=== PATIENT | female | born 1945 | race African-American/Black ===

== ENCOUNTER 2016-04-18 07:02 | Inpatient (IN) | payer OTHER ==
[2016-04-18] MEDS ORDERED: LORAZEPAM CARPU-JECT 2 MG/ML DISP.SYRIN ONE ×2 (07:26→07:30)
--- NOTE | 2016-04-18 07:40 | PDOC ---
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 The patient denies any LOC, head trauma, or head injury. She states that she has been compliant with all of her medications. She reports that she does not feel right and is twitching. She states that she does not usually lose consciousness while seizing. The patient states that she walks with a cane. The HPI is limited secondary to seizure. Allergies: none reported PCP- Dr. Marlow <Helena Grider - Last Filed: 04/18/16 11:27> - General Chief Complaint: Seizure Stated Complaint: SEIZURES Time Seen by Provider: 04/18/16 07:18 Past History - Past Medical History Anemia: No Asthma: No Cancer: No Cardiac Disorders: Yes (HEART MURMUR, AFIB, AICD) CVA: Yes (TIA 2009) COPD: No CHF: No Dementia: No Diabetes: Yes GI Disorders: (DIVERTICULAR DISEASE) Disorders: No HTN: Yes Hypercholesterolemia: Yes Liver Disease: No Suicide Attempt (Hx): No Seizures: Yes (2009) Thyroid Disease: No - Surgical History Abdominal Surgery: No Appendectomy: No Cardiac Surgery: Yes (cardiac stent) Cholecystectomy: No Lung Surgery: No Neurologic Surgery: No Orthopedic Surgery: Yes (CARPAL TUNNEL RELEASE, RIGHT ARM PINNING W/ RODS) - Immunization History Immunization Up to Date: Yes - Psycho/Social/Smoking Cessation Hx Anxiety: No Suicidal Ideation: No Smoking Status: Yes Smoking History: Former smoker Have you smoked in the past 12 months: No Number of Cigarettes Smoked Daily: 0 If you are a former smoker, when did you quit?: 1981 Information on smoking cessation initiated: No Hx Alcohol Use: No Drug/Substance Use Hx: No Substance Use Type: None Hx Substance Use Treatment: No <Lilliana Odell - Last Filed: 04/18/16 09:50> <Helena Grider - Last Filed: 04/18/16 11:27> - Past Medical History Allergies/Adverse Reactions: Allergies Allergy/AdvReac Type Severity Reaction Status Date / Time No Known Drug Allergies Allergy Verified 04/18/16 07:15 Home Medications: Ambulatory Orders Apixaban [Eliquis] 5 mg PO DAILY 04/18/16 Bupropion HCl [Wellbutrin -] 0 mg PO DAILY 04/18/16 Carvedilol [Coreg] 12.5 mg PO BID 04/18/16 Digoxin [Lanoxin -] 0.125 mg PO DAILY 04/18/16 Glipizide [Glipizide Xl] 5 mg PO BID 04/18/16 Hydralazine HCl 10 mg PO BID 04/18/16 Isosorbide Mononitrate 0 mg PO DAILY 04/18/16 Lamotrigine 100 mg PO BID 04/18/16 Ranitidine [Zantac -] 0 mg PO DAILY 04/18/16 Review of Systems - Review of Systems Able to Perform ROS?: Yes Comments:: 04/18/16 07:54 CONSTITUTIONAL: Absent: fever, no chills, no fatigue EYES: Absent: visual changes ENT: Absent: ear pain, no sore throat CARDIOVASCULAR: Absent: chest pain, no palpitations RESPIRATORY: Absent: cough, no SOB GI: Absent: abdominal pain, no nausea, no vomiting, no constipation, no diarrhea GENITOURINARY: Absent: dysuria, no frequency, no hematuria MUSCULOSKELETAL: Absent: back pain, no arthralgia, no myalgia SKIN: Absent: rash NEUROLOGICAL: Present: seizures, twitching. <Helena Grider - Last Filed: 04/18/16 11:27> *Physical Exam - Vital Signs Last Vital Signs Temp Pulse Resp BP Pulse Ox 97.9 F 108 H 18 158/106 97 04/18/16 07:15 04/18/16 07:15 04/18/16 07:15 04/18/16 07:15 04/18/16 07:15 <Lilliana Odell - Last Filed: 04/18/16 09:50> - Vital Signs Last Vital Signs Temp Pulse Resp BP Pulse Ox 97.9 F 86 18 168/86 100 01/03/17 07:15 04/18/16 07:50 04/18/16 07:50 04/18/16 07:50 04/18/16 07:50 - Physical Exam Comments: 04/18/16 07:54 GENERAL: Well-appearing, well-nourished. No apparent distress. HEENT: Normocephalic, atraumatic. PERRL, EOM intact. CARDIOVASCULAR: Normal S1, S2. Regular rate and rhythm. PULMONARY: Clear to auscultation bilaterally. ABDOMEN: Soft, non-distended, non-tender. EXTREMITIES: Normal ROM in all four extremities. No gross deformities. SKIN: Warm, dry. No rash NEUROLOGICAL: Facial twitching under the left eye to the left cheek, chin, and perioral area. <Helena Grider - Last Filed: 04/18/16 11:27> ED Treatment Course - LABORATORY CBC & Chemistry Diagram: 04/18/16 07:39 04/18/16 08:22 <Lilliana Odell - Last Filed: 04/18/16 09:50> - LABORATORY CBC & Chemistry Diagram: 04/18/16 07:39 04/18/16 08:22 - ADDITIONAL ORDERS Additional order review: Laboratory Results 04/18/16 07:23 POC Glucometer [id number] 04/18/16 07:23 POC Glucometer [id number] - RADIOLOGY Radiograph Interpretation: 04/18/16 08:37 EXAM#: TYPE/EXAM: RESULT: [id number] RAD/CHEST X-RAY PORTABLE* Seizure. Chest. Semierect portable x-ray. Comparison study February 16, 2016. Right pacemaker with single intact lead. Cardiomegaly. Calcified aortic arch. No evidence of widening of the superior mediastinum. Bilateral apical pleural thickening. No evidence of CHF, pleural effusion, pneumothorax. No airspace opacities are seen in the visualized lungs. Chronic fibrosis or atelectasis is seen in the left retrocardiac region. Impression. Cardiomegaly. No evidence of active pneumonitis disease. Reported By: Uzair Springer MD 04/18/16 0825 EXAM#: TYPE/EXAM: RESULT: [id number] CT/HEAD CT WITHOUT CONTRAST Clinical formation. Seizures. CT scan of the brain c-. Comparison study CT brain noncontrast study February 01, 2016 Findings. Serial axial images of the brain were obtained from foramen magnum to the cranial vertex without intravenous contrast. The study was supplemented with computer-generated coronal and sagittal reconstruction images. No evidence of acute subarachnoid hemorrhage, acute intra-axial or extra-axial fluid collection consistent with subdural or epidural hematoma. No mass effect, midline shift, acute territorial ischemic changes, herniation or edema is present. Normal day matter white matter differentiation. Age-related involutional changes are noted. The right temporal horn of lateral ventricle is slightly dilated Examination of the bone windows show no fracture. The visualized paranasal sinuses and mastoid air cells are clear. Symmetrical optic globes. Unremarkable retro-orbital soft tissues. Intracranial vascular calcifications are noted Impression. No evidence of acute intracranial hemorrhage, edema, midline shift, mass effect , or skull fracture. No CT evidence of acute territorial infarction. Reported By: Uzair Springer MD 04/18/16 0845 - Medications Given in the ED: ED Medications Discontinued Medications Generic Name Dose Route Start Last Admin Trade Name Ayazq PRN Reason Stop Dose Admin Lorazepam 2 mg 04/18/16 07:46 04/18/16 07:27 Ativan Injection - IVPUSH 04/18/16 07:47 2 mg ONCE ONE Administration Lorazepam 1 mg 04/18/16 07:47 04/18/16 07:46 Ativan Injection - IVPUSH 04/18/16 07:48 1 mg ONCE ONE Administration <Helena Grider - Last Filed: 04/18/16 11:27> Medical Decision Making - Medical Decision Making 04/18/16 07:38 70-year-old female with history of hypertension, atrial fibrillation, CVA, AICD , CAD, DM, seizure disorder who presents to the emergency Department with complaints of seizure activity presenting with facial twitching 2 hours this morning. Upon my evaluation the patient had continued facial twitching with alert mental status, oriented 3. FSG is 114. Differential diagnosis includes but is not limited to: Partial seizures, status epilepticus (partial), electrolyte abnormality, toxic/metabolic derangement, infection, intracranial process, dehydration. Plan: 1. Benzos 2. CT head 3. EKG 4. Labs 5. Urine 6. Chest x-ray 7. Neurology consult 8. Observe and reevaluate 04/18/16 07:43 Addendum: The patient was given a total of Ativan 3 mg intravenously with cessation of facial twitching. 04/18/16 09:29 Addendum: Labs were remarkable for a troponin of 0.10 and a CK of almost 1200. EKG was obtained and shows what appears to be new ST segment depressions and I, II, aVF as well as V4 to V6. Cardiology as well as neurology have been consulted. Will give gentle IVF hydration for elevated CK. I've discussed the case with Dr. Marlow and the plan is to admit the patient to telemetry. <Lilliana Odell - Last Filed: 04/18/16 09:50> - Medical Decision Making 04/18/16 09:19 Dr. Odell spoke with Dr. Marlow at 9:13am regarding the patient's care. Dr. Casillas was paged via paging service at 9:18am. Awaiting call back. Dr. You called back at 9:45am and spoke with Dr. Odell regarding the patient 's care. Dr. Brower was paged via paging service at 9:28am for a doctor to doctor consult. Awaiting call back called back at 9:37am and spoke to Dr. Odell regarding the patient's care. <Helena Grider - Last Filed: 04/18/16 11:27> *DC/Admit/Observation/Transfer - Discharge Dispostion Admit: Yes - Attestations Physician Attestion: 04/18/16 07:40 I, Dr. Lilliana Odell, attest that the scribes documentation that appears above has been prepared under my direction and personally reviewed by me in its entirety. I confirmed that the note above accurately reflects all work, treatment, procedures, and medical decision-making performed by me. <Lilliana Odell - Last Filed: 04/18/16 09:50> - Attestations Scribe Attestion: 04/18/16 07:54 Documentation prepared by RAMO Cornejo, acting as medical appliance maker for Lilliana Odell MD. <Helena Grider - Last Filed: 04/18/16 11:27> Diagnosis at time of Disposition: Seizure disorder, Partial symptomatic epilepsy with complex partial seizures, not intractable, with status epilepticus, NSTEMI (non-ST elevated myocardial infarction) - Discharge Dispostion Condition at time of disposition: Stable - Referrals
[2016-04-18] MEDS ORDERED: LORAZEPAM CARPU-JECT 2 MG/ML DISP.SYRIN IVPUSH ONE ×2 (07:46→07:47)
[2016-04-18 08:01] LABS: BASOPHIL 1.1 % (0-2.0); EOSINOPHIL 3.4 % (0-4.5); MCH 29.8 pg (25.7-33.7); MCHC 32.6 g/dl (32.0-36.0); MEAN CELL VOLUME 91.5 fl (80-96); MEAN PLT VOLUME 8.9 fl (7.5-11.1); NEUTROPHILS 45.2 % (42.8-82.8); PLATELET COUNT 210 K/MM3 (134-434); RDW 13.7 % (11.6-15.6); WHITE BLOOD COUNT 3.9 K/mm3 (4.0-10.0)
[2016-04-18 08:52] LABS: ALBUMIN 3.8 g/dl (3.4-5.0); BILIRUBIN,TOTAL 1.1 mg/dL (0.2-1.0); CALCIUM 9.2 mg/dL (8.5-10.1); CREATININE 1.4 mg/dL (0.55-1.02); TOT PROT 7.9 g/dl (6.4-8.2)
[2016-04-18 09:04] LABS: DIGOXIN LEVEL 1.6305 ng/ml (0.8-2.0); TROPONIN I 0.1 ng/ml (0.00-0.05)
[2016-04-18] MEDS ORDERED: SODIUM CHLORIDE 1,000 ML IV STA (09:23)
--- NOTE | 2016-04-18 09:58 | EKG ---
Test Reason : Blood Pressure : / mmHG Vent. Rate : 103 BPM Atrial Rate : 103 BPM P-R Int : 174 ms QRS Dur : 086 ms QT Int : 324 ms P-R-T Axes : 078 -03 -96 degrees QTc Int : 424 ms ATRIAL FLUTTER RSR' OR QR PATTERN IN V1 SUGGESTS RIGHT VENTRICULAR CONDUCTION DELAY LEFT VENTRICULAR HYPERTROPHY WITH REPOLARIZATION ABNORMALITY ST ABNORMAL ECG WHEN COMPARED WITH ECG OF 19-FEB-2016 16:27, ST Confirmed by GEOFF KEATING, MINI ([id number]) on 04/18/2016 9:57:36 AM Referred By: Overread By: MINI TELLEZ MD
--- NOTE | 2016-04-18 10:41 | CONSULT ---
Consult Consult Specialty:: cardiology Reason for Consultation:: ?seizures; nausea; chest discomfort; EKG changes and elevated TNI - History of Present Illness Chief Complaint: Pt has a litany of discomforts: headache, nausea, dizziness, abdominal and chest discomfort; generalized weakness. History of Present Illness: The patient is a 70 year old black female, with significant past medical history of systolic CHF-->ICD, CAD-->coronary stents, moderate aortic stenosis, , seizures, AFIB, NIDDM; CVA (2009 with residual left sided weakness), diverticulitis, pancreatitis ,CKD, HTN, HLD, who presents today after seizing at approximately 5am this morning. The patient denies any LOC, head trauma, or head injury. She states that she does not lose consciousness while seizing. She states that she has been compliant with all of her medications. She reports that she does not feel right and is twitching. The patient states that she usually walks with a cane. The HPI is limited secondary to seizure. Allergies: none reported PCP- Dr. 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 due to microlithiasis, subclinical vs. perforated diverticulum. elev amylase lipase) Renal/: Yes: Renal Inusuff Reproductive: Yes: Postmenopausal ...: No Psych: Yes: Anxiety Endocrine: Yes: Diabetes Mellitus - Past Surgical History Past Surgical History: Yes: AICD, Colonoscopy (04/2014 severe diverticulosis and adhesions w/sigmoid inflamm, int hemorr, hyperplastic polyps icv, melanosis coli ), Hysterectomy, Stent - Alcohol/Substance Use Hx Alcohol Use: No - Smoking History Smoking history: Former smoker Have you smoked in the past 12 months: No Aproximately how many cigarettes per day: 0 If you are a former smoker, when did you quit?: 1981 - Social History Usual Living Arrangement: Alone ADL: Independent Occupation: No checmical exposure in workplace. History of Recent Travel: No Home Medications - Allergies Allergies/Adverse Reactions: Allergies Allergy/AdvReac Type Severity Reaction Status Date / Time No Known Drug Allergies Allergy Verified 04/18/16 07:15 - Home Medications Home Medications: Ambulatory Orders Apixaban [Eliquis] 5 mg PO DAILY 04/18/16 Bupropion HCl [Wellbutrin -] 150 mg PO DAILY 04/18/16 Carvedilol [Coreg] 12.5 mg PO BID 04/18/16 Digoxin [Lanoxin -] 0.125 mg PO DAILY 04/18/16 Glipizide [Glipizide Xl] 5 mg PO BID 04/18/16 Hydralazine HCl 10 mg PO BID 04/18/16 Isosorbide Mononitrate 30 mg PO DAILY 04/18/16 Lamotrigine 100 mg PO BID 04/18/16 Ranitidine [Zantac -] 0 mg PO DAILY 04/18/16 Family Disease History - Family Disease History Family Disease History: CA: Sister (Breast), Other: Son (CVA age 40) Review of Systems - Review of Systems Constitutional: reports: Weakness Eyes: reports: No Symptoms HENT: reports: No Symptoms Neck: reports: No Symptoms Cardiovascular: reports: Chest Pain Gastrointestinal: reports: Abdominal Pain, Nausea Musculoskeletal: reports: Muscle Weakness Neurological: reports: Weakness Psychiatric: reports: Anxiety, Depression - Risk Factors Known Risk Factors: Yes: Age, Diabetes Mellitus, Hypercholesterolemia, Hypertension, Physical Inactivity, Prior GA /Emb Stroke, Race, Other (CAD; CHF; s/p ICD) Vital Signs: Vital Signs Temperature 97.9 F 04/18/16 07:15 Pulse Rate 71 04/18/16 09:33 Respiratory Rate 17 04/18/16 09:33 Blood Pressure 162/86 04/18/16 09:33 O2 Sat by Pulse Oximetry (%) 100 04/18/16 09:33 Constitutional: Yes: Anxious Eyes: Yes: WNL HENT: Yes: WNL Respiratory: Yes: Regular Gastrointestinal: Yes: Soft Renal/: No: Anuria Cardiovascular: Yes: Pulse Irregular Carotid Bruit: No PMI: Displaced Heart Sounds: Yes: S1 (varies in intensity), Split S2 Murmur: Yes: Systolic Murmur, Grade 2 Musculoskeletal: Yes: Muscle Weakness Extremities: Yes: Cool Edema: No Peripheral Pulses WNL: No Peripheral Pulses: 1+ Left Doralis Pedis, 1+ Right Dorsalis Pedis Integumentary: Yes: WNL Neurological: Yes: Alert, Oriented Psychiatric: Yes: Alert, Oriented - Other Data Echo: Image Reviewed (02/2016: severely reduced LVEF; normal LV size; moderately reduced RVEF; moderately severe pulmonary HTN; mild aortic stenosis ( moderate aortic stenosis by cardiac cath several months ago).) Prior Cardiac Procedures: Cardiac Catheterization, PTCA with Stent Ejection Fraction %: LVEF < 40 % Imaging - Results Chest X-ray: Image Reviewed (cardiomegaly; no acute pulmonary pathology) EKG: Image Reviewed (Atrial flutter with variable AV block) Problem List - Problems (1) Abdominal pain Code(s): R10.9 - UNSPECIFIED ABDOMINAL PAIN Qualifiers: Abdominal location: generalized Qualified Code(s): R10.84 - Generalized abdominal pain (2) Acute on chronic systolic and diastolic heart failure, NYHA class 4 Code(s): I50.43 - ACUTE ON CHRONIC COMBINED SYSTOLIC AND DIASTOLIC HRT FAIL (3) Atypical chest pain Assessment/Plan: TNI 0.1-->0.1. EKG Code(s): R07.89 - OTHER CHEST PAIN (4) Coronary artery disease Code(s): I25.10 - ATHSCL HEART DISEASE OF [place] CORONARY ARTERY W/O ANG PCTRS Qualifiers: Coronary Disease-Associated Artery/Lesion type: [place] artery [place] vs. transplanted heart: [place] heart Associated angina: without angina Qualified Code(s): I25.10 - Atherosclerotic heart disease of [place] coronary artery without angina pectoris (5) Diabetes mellitus Code(s): E11.9 - TYPE 2 DIABETES MELLITUS WITHOUT COMPLICATIONS Qualifiers: Diabetes mellitus type: type 2 Diabetes mellitus complication status: with other specified complication (6) Seizure disorder Code(s): G40.909 - EPILEPSY, UNSP, NOT INTRACTABLE, WITHOUT STATUS EPILEPTICUS (7) Atrial fibrillation with RVR Code(s): I48.91 - UNSPECIFIED ATRIAL FIBRILLATION (8) ICD (implantable cardioverter-defibrillator) in place Code(s): Z95.810 - PRESENCE OF AUTOMATIC (IMPLANTABLE) CARDIAC DEFIBRILLATOR (9) Mitral regurgitation and aortic stenosis Code(s): I08.0 - RHEUMATIC DISORDERS OF BOTH MITRAL AND AORTIC VALVES (10) Systolic and diastolic CHF w/reduced LV function, NYHA class 4 Code(s): I50.40 - UNSP COMBINED SYSTOLIC AND DIASTOLIC (CONGESTIVE) HRT FAIL (11) Anxiety and depression Code(s): F41.8 - OTHER SPECIFIED ANXIETY DISORDERS (12) History of CVA (cerebrovascular accident) Code(s): Z86.73 - PRSNL HX OF TIA (TIA), AND CEREB INFRC W/O RESID DEFICITS (13) Hypertension Assessment/Plan: On carvedilol, hydralazine, Imdur. Add lisinopril (CAD; HTN; DM); f/u BUN/Cr, electrolytes (hx hyperkalemia, which in the past led to discontinuation of spironolactone). Code(s): I10 - ESSENTIAL (PRIMARY) HYPERTENSION Qualifiers: Hypertension type: essential hypertension Qualified Code(s): I10 - Essential (primary) hypertension (14) Acute coronary syndrome Assessment/Plan: TNI 0.1 x 2; CK 1,189, with relative index > 5. EKG: Atrial flutter; diffuse ST-T depression. Add ASA 325 mg once, then 81 mg daily; consider clopidogrel, though problematic (pt is already on apixaban for AF, and ?hx GI bleed). Continue carvedilol, and increase to 25 mg bid if tolerated. Start atorvastatin, despite "normal" lipid levels 02/2016; pt has known CAD, with acute findings. F/u LFTs (mild increase in AST presently). Code(s): I24.9 - ACUTE ISCHEMIC HEART DISEASE, UNSPECIFIED
[2016-04-18 11:39] LABS: URINE APPEARANCE CLEAR; URINE BILIRUBIN NEGATIVE (NEGATIVE); URINE COLOR LTYELLOW; URINE GLUCOSE (UA) NEGATIVE (NEGATIVE); URINE KETONE NEGATIVE (NEGATIVE); URINE NITRITE NEGATIVE (NEGATIVE); URINE UROBILINOGEN NEGATIVE E.U./dl (0.2-1.0)
[2016-04-18 11:40] LABS: URINE BLOOD 1+ (NEGATIVE); URINE LEUK ESTERASE TRACE (NEGATIVE); URINE PROTEIN 1+ (NEGATIVE)
[2016-04-18 11:46] LABS: URINE MUCUS RARE; URINE RBC <1 /hpf (0-3); URINE WBC 4 /hpf (3-5)
--- NOTE | 2016-04-18 12:39 | CONSULT ---
Consult Consult Specialty:: Neurology Reason for Consultation:: left arm twitch - History of Present Illness History of Present Illness: 70 yo with history of seizure disorder, awakened at 4 am with a intermittent left or right arm involuntary movements. She said she ignored it for a while but when it did not stop she decided to call for help. She had no LOC or altered mentation, her speech was normal and she had no sensory or motor symptoms. She was not post ictal. Diagnosed and treated by her private neurologist she takes Lamictal 200mg daily. - History Source History Provided By: Patient Limitations to Obtaining History: No Limitations - Past Medical History [employer]: Yes: CVA, 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 due to microlithiasis, subclinical vs. perforated diverticulum. elev amylase lipase) Renal/: Yes: Renal Inusuff Psych: Yes: Anxiety Endocrine: Yes: Diabetes Mellitus - Past Surgical History Past Surgical History: Yes: AICD, Colonoscopy (04/2014 severe diverticulosis and adhesions w/sigmoid inflamm, int hemorr, hyperplastic polyps icv, melanosis coli ), Hysterectomy, Stent - Alcohol/Substance Use Hx Alcohol Use: No - Smoking History Smoking history: Former smoker Have you smoked in the past 12 months: No Aproximately how many cigarettes per day: 0 If you are a former smoker, when did you quit?: 1981 - Social History Usual Living Arrangement: Alone ADL: Independent Occupation: No checmical exposure in workplace. History of Recent Travel: No Home Medications - Allergies Allergies/Adverse Reactions: Allergies Allergy/AdvReac Type Severity Reaction Status Date / Time No Known Drug Allergies Allergy Verified 04/18/16 07:15 - Home Medications Home Medications: Ambulatory Orders Apixaban [Eliquis] 5 mg PO DAILY 04/18/16 Bupropion HCl [Wellbutrin -] 0 mg PO DAILY 04/18/16 Carvedilol [Coreg] 12.5 mg PO BID 04/18/16 Digoxin [Lanoxin -] 0.125 mg PO DAILY 04/18/16 Glipizide [Glipizide Xl] 5 mg PO BID 04/18/16 Hydralazine HCl 10 mg PO BID 04/18/16 Isosorbide Mononitrate 0 mg PO DAILY 04/18/16 Lamotrigine 100 mg PO BID 04/18/16 Ranitidine [Zantac -] 0 mg PO DAILY 04/18/16 Family Disease History - Family Disease History Family Disease History: CA: Sister (Breast), Other: Son (CVA age 40) Physical Exam Vital Signs: Vital Signs Temperature 97.9 F 04/18/16 07:15 Pulse Rate 71 04/18/16 09:33 Respiratory Rate 04/18/16 09:33 Blood Pressure 162/86 04/18/16 09:33 O2 Sat by Pulse Oximetry (%) 100 04/18/16 09:33 Constitutional: Yes: Well Nourished, No Distress, Calm Eyes: Yes: WNL, EOM Intact, PERRL. No: Diplopia, Ptosis HENT: Yes: Atraumatic Neck: Yes: Supple Cardiovascular: Yes: Regular Rate and Rhythm Respiratory: Yes: Regular Gastrointestinal: Yes: Soft Musculoskeletal: No: Back Pain, Muscle Weakness Neurological: Yes: WNL, Alert, Oriented, Babinski negative, Cran Nerves II-XII Intact. No: Aphasia, Asterixis, Ataxia, Confusion, Dysarthria, Facial Droop, Lethargy, Loss of Sensation, Paresthesia, Seizure, Weakness Assessment/Plan involunyary UE movements with hx of seizure disorder with no clinical seizures at present P increase Lamictal 200 Bid IM/cardiology to address co-morbid cardiac disease with possible MD EEG to assess for ongoing seizure activity.
[2016-04-18 13:54] LABS: TROPONIN I 0.1 ng/ml (0.00-0.05)
[2016-04-18 17:04] VITALS: BMI 42.1
[2016-04-18] MEDS ORDERED: ACETAMINOPHEN 325 MG TABLET (FP) PO PRN (18:14)
--- NOTE | 2016-04-18 18:21 | HP ---
Admitting History and Physical - Primary Care Physician PCP: Kei Marlow - Admission Chief Complaint: seizure/twitch/chest pain History of Present Illness: 70 y/o female with history of diastolic chf, seizure disorder gerd, htn, depression, here with c/o twitching on her face and chest pain. Cardiac enzymes were positive x 1 set, cardiology and neurology workup started in ED. 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 due to microlithiasis, subclinical vs. perforated diverticulum. elev amylase lipase) Renal/: Yes: Renal Inusuff Psych: Yes: Anxiety Endocrine: Yes: Diabetes Mellitus - Past Surgical History Past Surgical History: Yes: AICD, Colonoscopy (04/2014 severe diverticulosis and adhesions w/sigmoid inflamm, int hemorr, hyperplastic polyps icv, melanosis coli ), Hysterectomy, Stent - Smoking History Smoking history: Former smoker Have you smoked in the past 12 months: No Aproximately how many cigarettes per day: 0 If you are a former smoker, when did you quit?: 1981 - Alcohol/Substance Use Hx Alcohol Use: No - Social History ADL: Independent Occupation: No checmical exposure in workplace. History of Recent Travel: No Home Medications - Allergies Allergies/Adverse Reactions: Allergies Allergy/AdvReac Type Severity Reaction Status Date / Time No Known Drug Allergies Allergy Verified 04/18/16 07:15 - Home Medications Home Medications: Ambulatory Orders Apixaban [Eliquis] 5 mg PO DAILY 04/18/16 Bupropion HCl [Wellbutrin -] 150 mg PO DAILY 04/18/16 Carvedilol [Coreg] 12.5 mg PO BID 04/18/16 Digoxin [Lanoxin -] 0.125 mg PO DAILY 04/18/16 Glipizide [Glipizide Xl] 5 mg PO BID 04/18/16 RX: Hydralazine HCl 10 mg PO BID 04/18/16 RX: Isosorbide Mononitrate 30 mg PO DAILY 04/18/16 RX: Lamotrigine 100 mg PO BID 04/18/16 Ranitidine [Zantac -] 0 mg PO DAILY 04/18/16 Family Disease History - Family Disease History Family Disease History: CA: Sister (Breast), Other: Son (CVA age 40) Review of Systems - Review of Systems Constitutional: reports: Lethargy Eyes: reports: No Symptoms HENT: reports: No Symptoms Neck: reports: No Symptoms Cardiovascular: reports: Chest Pain Respiratory: reports: No Symptoms Gastrointestinal: reports: No Symptoms Genitourinary: reports: No Symptoms Musculoskeletal: reports: Muscle Weakness Integumentary: reports: No Symptoms Neurological: reports: Seizure, Weakness Endocrine: reports: No Symptoms Hematology/Lymphatic: reports: No Symptoms Psychiatric: reports: Depression Physical Examination Vital Signs: Vital Signs Temperature 97.8 F 04/18/16 17:43 Pulse Rate 105 H 04/18/16 17:43 Respiratory Rate 18 04/18/16 17:43 Blood Pressure 156/86 04/18/16 17:43 O2 Sat by Pulse Oximetry (%) 98 04/18/16 17:43 Constitutional: Yes: Moderate Distress Eyes: Yes: WNL HENT: Yes: WNL Neck: Yes: WNL Cardiovascular: Yes: WNL Respiratory: Yes: WNL Gastrointestinal: Yes: WNL Renal/: Yes: WNL Musculoskeletal: Yes: WNL, Muscle Weakness Extremities: Yes: WNL Edema: Yes Edema: LLE: Trace, RLE: Trace Peripheral Pulses WNL: Yes Integumentary: Yes: WNL Wound/Incision: Yes: Clean/Dry Neurological: Yes: Pre-Existing Deficit, Unsteady Gait ...Motor Strength: LLE, RLE Psychiatric: Yes: Other Imaging - Results Chest X-ray: Report Reviewed Cat Scan: Report Reviewed Problem List - Problems (1) Acute on chronic systolic and diastolic heart failure, NYHA class 4 Code(s): I50.43 - ACUTE ON CHRONIC COMBINED SYSTOLIC AND DIASTOLIC HRT FAIL (2) Atypical chest pain Code(s): R07.89 - OTHER CHEST PAIN (3) Coronary artery disease Code(s): I25.10 - ATHSCL HEART DISEASE OF [place] CORONARY ARTERY W/O ANG PCTRS Qualifiers: Coronary Disease-Associated Artery/Lesion type: [place] artery [place] vs. transplanted heart: [place] heart Associated angina: without angina Qualified Code(s): I25.10 - Atherosclerotic heart disease of [place] coronary artery without angina pectoris (4) Partial symptomatic epilepsy with complex partial seizures, not intractable , with status epilepticus Code(s): G40.201 - LOCAL-REL SYMPTC EPI W CMPLX PRT SEIZ, NOT NTRCT, W STAT EPI (5) Shortness of breath Code(s): R06.02 - SHORTNESS OF BREATH (6) Arrhythmia Code(s): I49.9 - CARDIAC ARRHYTHMIA, UNSPECIFIED (7) Cardiomegaly Code(s): I51.7 - CARDIOMEGALY (8) Diabetes mellitus Code(s): E11.9 - TYPE 2 DIABETES MELLITUS WITHOUT COMPLICATIONS Qualifiers: Diabetes mellitus type: type 2 Diabetes mellitus complication status: with other specified complication (9) Seizure disorder Code(s): G40.909 - EPILEPSY, UNSP, NOT INTRACTABLE, WITHOUT STATUS EPILEPTICUS (10) Atrial fibrillation and flutter Code(s): I48.91 - UNSPECIFIED ATRIAL FIBRILLATION I48.92 - UNSPECIFIED ATRIAL FLUTTER Assessment/Plan ADMIT TO TELEMETRY NEURO CHECKS LABS REVIEWED CARDIAC ENZYMES X 1 MORE SET NEUROLOGY WORKUP ELIQUIS CONTINUED NO SUICIDAL OR HOMICIDAL THOUGHTS PSYCH EVAL OOB TO CHAIR WITH FALL PRECAUTIONS
[2016-04-18] MEDS: buPROPion HCL 75 MG TABLET PO SCH (21:02)
[2016-04-18] MEDS: CARVEDILOL 12.5 MG TABLET (FP) PO SCH (21:02)
[2016-04-18] MEDS: RANITIDINE HCL 150 MG TABLET (FP) PO SCH (21:02)
[2016-04-18] MEDS: lamoTRIgine 100 MG TABLET (FP) PO SCH (21:03)
[2016-04-18] MEDS: APIXABAN 2.5 MG TABLET PO SCH (21:03)
[2016-04-18] MEDS: hydrALAZINE HCL 10 MG TABLET PO SCH (21:03)
[2016-04-18 21:25] LABS: TROPONIN I 0.11 ng/ml (0.00-0.05)
[2016-04-18] MEDS ORDERED: lamoTRIgine 100 MG TABLET (FP) PO SCH (22:00)
[2016-04-18] MEDS ORDERED: DIGOXIN 0.125 MG TABLET (FP) PO SCH (23:30)
[2016-04-19] MEDS: glipiZIDE-XL 5 MG TAB.ER.24 PO SCH ×2 (06:11→16:26)
[2016-04-19 07:48] LABS: MCHC 32.5 g/dl (32.0-36.0); MEAN CELL VOLUME 92.3 fl (80-96); PLATELET COUNT 179 K/MM3 (134-434); RDW 13.6 % (11.6-15.6); WHITE BLOOD COUNT 3.9 K/mm3 (4.0-10.0)
[2016-04-19 08:51] LABS: CHOLESTEROL 159 mg/dL (50-200); LDL CHOLESTEROL (ONLY SJRH) 82 mg/dL (5-100)
[2016-04-19 08:56] LABS: ALBUMIN 3.6 g/dl (3.4-5.0); CALCIUM 9.3 mg/dL (8.5-10.1); CREATININE 1.4 mg/dL (0.55-1.02); TOT PROT 7.5 g/dl (6.4-8.2)
[2016-04-19] MEDS ORDERED: PT OWN MED DRAWER 7, Y5N ONE ×2 (09:12→21:51)
[2016-04-19] MEDS: ISOSORBIDE MONONITRATE 30 MG TAB.SR.24H (FP) PO SCH (09:35)
[2016-04-19] MEDS: APIXABAN 2.5 MG TABLET PO SCH ×2 (09:35→21:53)
[2016-04-19] MEDS: lamoTRIgine 100 MG TABLET (FP) PO SCH ×2 (09:35→21:53)
[2016-04-19] MEDS: CARVEDILOL 12.5 MG TABLET (FP) PO SCH ×2 (09:35→21:53)
[2016-04-19] MEDS: hydrALAZINE HCL 10 MG TABLET PO SCH ×2 (09:35→21:53)
[2016-04-19] MEDS: RANITIDINE HCL 150 MG TABLET (FP) PO SCH ×2 (09:35→21:53)
[2016-04-19] MEDS ORDERED: DIGOXIN 0.125 MG TABLET (FP) PO SCH (10:00)
[2016-04-19] MEDS: buPROPion HCL 75 MG TABLET PO SCH ×2 (10:00→21:53)
--- NOTE | 2016-04-19 10:09 | PN ---
Progress Note, Physician Chief Complaint: AWAKE CONFUSED ABLE TO NAME PRESIDENT MARGARITO KNOWS WHERE SHE IS - Current Medication List Current Medications: Active Medications Acetaminophen (Tylenol -) 650 mg PO Q6H PRN PRN Reason: FEVER OR PAIN Apixaban (Eliquis -) 2.5 mg PO BID [facility] Last Admin: 04/19/16 09:35 Dose: 2.5 mg Bupropion HCl (Wellbutrin -) 150 mg PO BID [facility] Last Admin: 04/18/16 21:02 Dose: 150 mg Carvedilol (Coreg -) 12.5 mg PO BID [facility] Last Admin: 04/19/16 09:35 Dose: 12.5 mg Digoxin (Lanoxin -) 0.125 mg PO Q48H [facility] Last Admin: 04/18/16 23:42 Dose: Not Given Furosemide (Lasix Injection -) 40 mg IVPB ONCE ONE Stop: 04/19/16 10:05 [facility]: 04/19/16 06:11 Dose: Not Given Hydralazine HCl (Apresoline -) 10 mg PO BID [facility] Last Admin: 04/19/16 09:35 Dose: 10 mg Isosorbide Mononitrate (Imdur -) 30 mg PO DAILY [facility] Last Admin: 04/19/16 09:35 Dose: 30 mg Lamotrigine (Lamictal -) 200 mg PO BID [facility] Last Admin: 04/19/16 09:35 Dose: 200 mg Ranitidine HCl (Zantac -) 150 mg PO BID [facility] Last Admin: 04/19/16 09:35 Dose: 150 mg - Objective Vital Signs: Vital Signs Temperature 98.1 F 04/19/16 06:00 Pulse Rate 84 04/19/16 06:00 Respiratory Rate 18 04/19/16 06:00 Blood Pressure 145/89 04/19/16 06:00 O2 Sat by Pulse Oximetry (%) 98 04/18/16 22:00 Constitutional: Yes: Mild Distress Eyes: Yes: WNL HENT: Yes: WNL Neck: Yes: WNL Cardiovascular: Yes: Pulse Irregular Respiratory: Yes: WNL Gastrointestinal: Yes: WNL Genitourinary: Yes: WNL Musculoskeletal: Yes: Muscle Weakness Extremities: Yes: WNL Edema: Yes Edema: LLE: Trace, RLE: Trace Peripheral Pulses WNL: Yes Integumentary: Yes: WNL Wound/Incision: Yes: Clean/Dry Neurological: Yes: Confusion, Weakness ...Motor Strength: LLE, RLE Psychiatric: Yes: Other Labs: CBC, BMP 04/19/16 06:00 04/19/16 06:00 Problem List - Problems (1) Acute on chronic systolic and diastolic heart failure, NYHA class 4 Code(s): I50.43 - ACUTE ON CHRONIC COMBINED SYSTOLIC AND DIASTOLIC HRT FAIL (2) Atypical chest pain Code(s): R07.89 - OTHER CHEST PAIN (3) Coronary artery disease Code(s): I25.10 - ATHSCL HEART DISEASE OF [place] CORONARY ARTERY W/O ANG PCTRS Qualifiers: Coronary Disease-Associated Artery/Lesion type: [place] artery [place] vs. transplanted heart: [place] heart Associated angina: without angina Qualified Code(s): I25.10 - Atherosclerotic heart disease of [place] coronary artery without angina pectoris (4) Partial symptomatic epilepsy with complex partial seizures, not intractable , with status epilepticus Code(s): G40.201 - LOCAL-REL SYMPTC EPI W CMPLX PRT SEIZ, NOT NTRCT, W STAT EPI (5) Shortness of breath Code(s): R06.02 - SHORTNESS OF BREATH (6) Arrhythmia Code(s): I49.9 - CARDIAC ARRHYTHMIA, UNSPECIFIED (7) Cardiomegaly Code(s): I51.7 - CARDIOMEGALY (8) Diabetes mellitus Code(s): E11.9 - TYPE 2 DIABETES MELLITUS WITHOUT COMPLICATIONS Qualifiers: Diabetes mellitus type: type 2 Diabetes mellitus complication status: with other specified complication (9) Seizure disorder Code(s): G40.909 - EPILEPSY, UNSP, NOT INTRACTABLE, WITHOUT STATUS EPILEPTICUS (10) Atrial fibrillation and flutter Code(s): I48.91 - UNSPECIFIED ATRIAL FIBRILLATION I48.92 - UNSPECIFIED ATRIAL FLUTTER Assessment/Plan ADMIT TO TELEMETRY NEURO CHECKS LABS REVIEWED CARDIAC ENZYMES X 1 MORE SET STAT LASIX IV 40MG X 1 CARDIAC EVAL NEUROLOGY WORKUP ELIQUIS CONTINUED NO SUICIDAL OR HOMICIDAL THOUGHTS PSYCH EVAL OOB TO CHAIR WITH FALL PRECAUTIONS
[2016-04-19 10:30] LABS: ERYTHROCYTE SEDIMENTATION RATE 31 mm/hr (0-30)
[2016-04-19] MEDS ORDERED: FUROSEMIDE 40 MG/4 ML INJECTABLE VIAL IVPB ONE (10:30)
[2016-04-19 10:53] LABS: TROPONIN I 0.1 ng/ml (0.00-0.05)
--- NOTE | 2016-04-19 11:04 | EKG ---
Test Reason : Blood Pressure : / mmHG Vent. Rate : 083 BPM Atrial Rate : 208 BPM P-R Int : 000 ms QRS Dur : 090 ms QT Int : 350 ms P-R-T Axes : 000 -01 185 degrees QTc Int : 411 ms ATRIAL FLUTTER WITH VARIABLE A-V BLOCK WITH PREMATURE VENTRICULAR OR ABERRANTLY CONDUCTED COMPLEXES RSR' OR QR PATTERN IN V1 SUGGESTS RIGHT VENTRICULAR CONDUCTION DELAY ANTERIOR INFARCT (CITED ON OR BEFORE 18-APR-2016) ABNORMAL ECG WHEN COMPARED WITH ECG OF 18-APR-2016 09:27, SERIAL CHANGES OF ANTERIOR INFARCT PRESENT Confirmed by IGNACIO PEÑA MD ([id number]) on 04/19/2016 11:04:11 AM Referred By: Bonny ALLEN Confirmed By:IGNACIO PEÑA MD
--- NOTE | 2016-04-19 11:08 | PN ---
Progress Note, Physician History of Present Illness: The patient is a 70 year old black female, with significant past medical history of systolic CHF-->ICD, CAD-->coronary stents, moderate aortic stenosis, , seizures, AFIB, NIDDM; CVA (2010 with residual left sided weakness), diverticulitis, pancreatitis ,CKD, HTN, HLD, who presents today after seizing at approximately 5am this morning. The patient denies any LOC, head trauma, or head injury. She states that she does not lose consciousness while seizing. She states that she has been compliant with all of her medications. She reports that she does not feel right and is twitching. The patient states that she usually walks with a cane. The HPI is limited secondary to seizure. Allergies: none reported PCP- Dr. Marlow - Current Medication List Current Medications: Active Medications Acetaminophen (Tylenol -) 650 mg PO Q6H PRN PRN Reason: FEVER OR PAIN Apixaban (Eliquis -) 2.5 mg PO BID [facility] Last Admin: 04/19/16 09:35 Dose: 2.5 mg Bupropion HCl (Wellbutrin -) 150 mg PO BID [facility] Last Admin: 04/19/16 10:00 Dose: Not Given Carvedilol (Coreg -) 12.5 mg PO BID [facility] Last Admin: 04/19/16 09:35 Dose: 12.5 mg Digoxin (Lanoxin -) 0.125 mg PO Q48H [facility] Last Admin: 04/18/16 23:42 Dose: Not Given Glipizide (Glucotrol Xl -) 5 mg PO BIDAC [facility] Last Admin: 04/19/16 06:11 Dose: Not Given Hydralazine HCl (Apresoline -) 10 mg PO BID [facility] Last Admin: 04/19/16 09:35 Dose: 10 mg Isosorbide Mononitrate (Imdur -) 30 mg PO DAILY [facility] Last Admin: 04/19/16 09:35 Dose: 30 mg Lamotrigine (Lamictal -) 200 mg PO BID [facility] Last Admin: 04/19/16 09:35 Dose: 200 mg Ranitidine HCl (Zantac -) 150 mg PO BID [facility] Last Admin: 04/19/16 09:35 Dose: 150 mg - Objective Vital Signs: Vital Signs Temperature 98.1 F 04/19/16 06:00 Pulse Rate 84 04/19/16 06:00 Respiratory Rate 18 04/19/16 06:00 Blood Pressure 145/89 04/19/16 06:00 O2 Sat by Pulse Oximetry (%) 98 04/18/16 22:00 Eyes: Yes: WNL, Conjunctiva Clear, EOM Intact HENT: Yes: WNL, Atraumatic, Normocephalic Neck: Yes: WNL, Supple, Trachea Midline Cardiovascular: Yes: WNL, Regular Rate and Rhythm Respiratory: Yes: WNL, Regular, CTA Bilaterally Gastrointestinal: Yes: WNL, Normal Bowel Sounds Genitourinary: Yes: WNL Musculoskeletal: Yes: WNL Extremities: Yes: WNL Edema: No Integumentary: Yes: WNL Neurological: Yes: WNL, Alert, Oriented ...Motor Strength: WNL Psychiatric: Yes: WNL Labs: CBC, BMP 04/19/16 06:00 04/19/16 06:00 Assessment/Plan - Problems (1) Abdominal pain Code(s): R10.9 - UNSPECIFIED ABDOMINAL PAIN Qualifiers: Abdominal location: generalized Qualified Code(s): R10.84 - Generalized abdominal pain (2) Acute on chronic systolic and diastolic heart failure, NYHA class 4 Code(s): I50.43 - ACUTE ON CHRONIC COMBINED SYSTOLIC AND DIASTOLIC HRT FAIL (3) Atypical chest pain Assessment/Plan: TNI 0.1-->0.1. EKG Code(s): R07.89 - OTHER CHEST PAIN (4) Coronary artery disease Code(s): I25.10 - ATHSCL HEART DISEASE OF [place] CORONARY ARTERY W/O ANG PCTRS Qualifiers: Coronary Disease-Associated Artery/Lesion type: [place] artery [place] vs. transplanted heart: [place] heart Associated angina: without angina Qualified Code(s): I25.10 - Atherosclerotic heart disease of [place] coronary artery without angina pectoris (5) Diabetes mellitus Code(s): E11.9 - TYPE 2 DIABETES MELLITUS WITHOUT COMPLICATIONS Qualifiers: Diabetes mellitus type: type 2 Diabetes mellitus complication status: with other specified complication (6) Seizure disorder Code(s): G40.909 - EPILEPSY, UNSP, NOT INTRACTABLE, WITHOUT STATUS EPILEPTICUS (7) Atrial fibrillation with RVR Code(s): I48.91 - UNSPECIFIED ATRIAL FIBRILLATION (8) ICD (implantable cardioverter-defibrillator) in place Code(s): Z95.810 - PRESENCE OF AUTOMATIC (IMPLANTABLE) CARDIAC DEFIBRILLATOR (9) Mitral regurgitation and aortic stenosis Code(s): I08.0 - RHEUMATIC DISORDERS OF BOTH MITRAL AND AORTIC VALVES (10) Systolic and diastolic CHF w/reduced LV function, NYHA class 4 Code(s): I50.40 - UNSP COMBINED SYSTOLIC AND DIASTOLIC (CONGESTIVE) HRT FAIL (11) Anxiety and depression Code(s): F41.8 - OTHER SPECIFIED ANXIETY DISORDERS (12) History of CVA (cerebrovascular accident) Code(s): Z86.73 - PRSNL HX OF TIA (TIA), AND CEREB INFRC W/O RESID DEFICITS (13) Hypertension Assessment/Plan: On carvedilol, hydralazine, Imdur. Add lisinopril (CAD; HTN; DM); f/u BUN/Cr, electrolytes (hx hyperkalemia, which in the past led to discontinuation of spironolactone). Code(s): I10 - ESSENTIAL (PRIMARY) HYPERTENSION Qualifiers: Hypertension type: essential hypertension Qualified Code(s): I10 - Essential (primary) hypertension (14) Acute coronary syndrome Assessment/Plan: TNI 0.1 x 2; CK 1,189, with relative index > 5. EKG: Atrial flutter; diffuse ST-T depression. Add ASA 325 mg once, then 81 mg daily; consider clopidogrel, though problematic (pt is already on apixaban for AF, and ?hx GI bleed). Continue carvedilol, and increase to 25 mg bid if tolerated. Start atorvastatin, despite "normal" lipid levels 02/2016; pt has known CAD, with acute findings. F/u LFTs (mild increase in AST presently). Code(s): I24.9 - ACUTE ISCHEMIC HEART DISEASE, UNSPECIFIED
--- NOTE | 2016-04-19 13:02 | HP ---
Admitting History and Physical - Admission History of Present Illness: out of the room for testing with no reported seizure activity since admission. 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 due to microlithiasis, subclinical vs. perforated diverticulum. elev amylase lipase) Renal/: Yes: Renal Inusuff ...: No Psych: Yes: Anxiety Endocrine: Yes: Diabetes Mellitus - Past Surgical History Past Surgical History: Yes: AICD, Colonoscopy (04/2014 severe diverticulosis and adhesions w/sigmoid inflamm, int hemorr, hyperplastic polyps icv, melanosis coli ), Hysterectomy, Stent - Smoking History Smoking history: Former smoker Have you smoked in the past 12 months: No Aproximately how many cigarettes per day: 0 If you are a former smoker, when did you quit?: 1981 - Alcohol/Substance Use Hx Alcohol Use: No - Social History ADL: Independent Occupation: No checmical exposure in workplace. History of Recent Travel: No Home Medications - Allergies Allergies/Adverse Reactions: Allergies Allergy/AdvReac Type Severity Reaction Status Date / Time No Known Drug Allergies Allergy Verified 04/18/16 07:15 - Home Medications Home Medications: Ambulatory Orders Apixaban [Eliquis] 5 mg PO DAILY 04/18/16 Bupropion HCl [Wellbutrin -] 150 mg PO DAILY 04/18/16 Carvedilol [Coreg] 12.5 mg PO BID 04/18/16 Digoxin [Lanoxin -] 0.125 mg PO DAILY 04/18/16 Glipizide [Glipizide Xl] 5 mg PO BID 04/18/16 Hydralazine HCl 10 mg PO BID 04/18/16 Isosorbide Mononitrate 30 mg PO DAILY 04/18/16 Lamotrigine 100 mg PO BID 04/18/16 Ranitidine [Zantac -] 0 mg PO DAILY 04/18/16 Family Disease History - Family Disease History Family Disease History: [place]: Sister (Breast), Other: Son (CVA age 40) Physical Examination Vital Signs: Vital Signs Temperature 97.6 F 04/19/16 09:00 Pulse Rate 104 H 04/19/16 09:00 Respiratory Rate 18 04/19/16 09:00 Blood Pressure 149/79 04/19/16 09:00 O2 Sat by Pulse Oximetry (%) 98 04/19/16 09:00 Labs: CBC, BMP 04/19/16 06:00 04/19/16 06:00 Assessment/Plan Imp involuntary limb movements, unlikely seizure activity with EEG pending and negative Brain CT Neurologically stable for discharged when general medical condition allows May follow up with her private neurologist, Dr Matthews however suggest she continue Lamictal 200 mg BID (as discussed with Dr Stringer.
--- NOTE | 2016-04-19 14:00 | EKG ---
Test Reason : Blood Pressure : / mmHG Vent. Rate : 088 BPM Atrial Rate : 214 BPM P-R Int : 000 ms QRS Dur : 090 ms QT Int : 336 ms P-R-T Axes : 000 006 -80 degrees QTc Int : 406 ms ATRIAL FLUTTER WITH VARIABLE A-V BLOCK RSR' OR QR PATTERN IN V1 SUGGESTS RIGHT VENTRICULAR CONDUCTION DELAY SEPTAL INFARCT , AGE UNDETERMINED ABNORMAL ECG WHEN COMPARED WITH ECG OF 18-APR-2016 07:33, ST MORE DEPRESSED LATERAL LEADS T WAVE INVERSION NO LONGER EVIDENT IN ANTERIOR LEADS Confirmed by MARIANA KEATING, IGNACIO ([id number]) on 04/19/2016 1:59:59 PM Referred By: Confirmed By:IGNACIO PEÑA MD
[2016-04-20 06:13] VITALS: TEMP 98.2
[2016-04-20] MEDS ORDERED: PT OWN MED DRAWER 7, Y5N ONE (09:35)
[2016-04-20] MEDS: glipiZIDE-XL 5 MG TAB.ER.24 PO SCH (09:49)
[2016-04-20] MEDS: RANITIDINE HCL 150 MG TABLET (FP) PO SCH (09:50)
[2016-04-20] MEDS: CARVEDILOL 12.5 MG TABLET (FP) PO SCH (09:50)
[2016-04-20] MEDS: ISOSORBIDE MONONITRATE 30 MG TAB.SR.24H (FP) PO SCH (09:50)
[2016-04-20] MEDS: APIXABAN 2.5 MG TABLET PO SCH (09:50)
[2016-04-20] MEDS: hydrALAZINE HCL 10 MG TABLET PO SCH (09:51)
[2016-04-20] MEDS: buPROPion HCL 75 MG TABLET PO SCH (09:52)
[2016-04-20] MEDS: lamoTRIgine 100 MG TABLET (FP) PO SCH (09:53)
--- NOTE | 2016-04-20 11:26 | DS ---
Physical Examination Vital Signs: Vital Signs Temperature 98.2 F 04/20/16 06:00 Pulse Rate 103 H 04/20/16 06:00 Respiratory Rate 20 04/20/16 06:00 Blood Pressure 143/86 04/20/16 06:00 O2 Sat by Pulse Oximetry (%) 99 04/19/16 21:00 Findings/Remarks: feeling better Constitutional: Yes: Well Nourished Eyes: Yes: WNL HENT: Yes: WNL Neck: Yes: WNL Cardiovascular: Yes: Pulse Irregular Respiratory: Yes: WNL Gastrointestinal: Yes: WNL Renal/: Yes: WNL Musculoskeletal: Yes: WNL Extremities: Yes: WNL Edema: No Peripheral Pulses WNL: Yes Integumentary: Yes: WNL Wound/Incision: Yes: Clean/Dry Neurological: Yes: WNL ...Motor Strength: WNL Psychiatric: Yes: WNL Labs: CBC, BMP 04/19/16 06:00 04/19/16 06:00 Discharge Summary Reason For Visit: SEIZURE DISORDER Current Active Problems Abdominal pain (Acute) Acute on chronic systolic and diastolic heart failure, NYHA class 4 (Acute) Atypical chest pain (Acute) Coronary artery disease (Acute) Elevated lactic acid level (Acute) Elevated lipase (Acute) Hyperkalemia (Acute) Shortness of breath (Acute) Tachyarrhythmia (Acute) Arrhythmia (Chronic) Cardiomegaly (Chronic) Diabetes mellitus (Chronic) Procedures: Principal: ct head Other Procedures: labs/cx Hospital Course: admitted for acute seizure elevated troponins, treated and worked up, f/u as outpatient Condition: Stable - Instructions Diet, Activity, Other Instructions: low sodium/ada Referrals: Kei Marlow MD [Primary Care Provider] - - Home Medications Comprehensive Discharge Medication List: Ambulatory Orders Apixaban [Eliquis] 5 mg PO DAILY 04/18/16 Bupropion HCl [Wellbutrin -] 150 mg PO DAILY 04/18/16 Carvedilol [Coreg] 12.5 mg PO BID 04/18/16 Digoxin [Lanoxin -] 0.125 mg PO DAILY 04/18/16 Glipizide [Glipizide Xl] 5 mg PO BID 04/18/16 Hydralazine HCl 10 mg PO BID 04/18/16 Isosorbide Mononitrate 30 mg PO DAILY 04/18/16 Lamotrigine 100 mg PO BID 04/18/16 Ranitidine [Zantac -] 0 mg PO DAILY 04/18/16
[2016-04-20 11:40] VITALS: BP 140/86; PULSE 72
== END 2016-04-20 11:19 | disposition home or self-care (01) | DRG 100 ==
LOC: JER 07:02 → JERBED 09:57 → J4S 17:25
PROVIDERS: ADMIT Family Medicine; ATTEND Family Medicine
DX: G40.909 Epilepsy, unspecified, not intractable, without status epilepticus (principal); I50.43 Acute on chronic combined systolic (congestive) and diastolic (congestive) heart failure; I69.354 Hemiplegia and hemiparesis following cerebral infarction affecting left non-dominant side; R07.89 Other chest pain; I25.10 Atherosclerotic heart disease of native coronary artery without angina pectoris; Z98.61 Coronary angioplasty status; E11.9 Type 2 diabetes mellitus without complications; E78.5 Hyperlipidemia, unspecified; Z87.891 Personal history of nicotine dependence; I12.9 Hypertensive chronic kidney disease with stage 1 through stage 4 chronic kidney disease, or unspecified chronic kidney disease; N18.9 Chronic kidney disease, unspecified; Z95.810 Presence of automatic (implantable) cardiac defibrillator; I34.0 Nonrheumatic mitral (valve) insufficiency; I35.0 Nonrheumatic aortic (valve) stenosis
CPT/HCPCS: 36415; 70450-TC; 71010-TC; 80053; 80061; 80162; 81003; 81015; 82550; 82553; 83036; 83605; 83721; 83880; 84484; 85025; 85027; 85651; 93005; 93010; 95816; 97116-GP; 97163-GP; 99285-25

== ENCOUNTER 2016-07-11 07:23 | Inpatient (IN) | payer OTHER ==
[2016-07-11] MEDS ORDERED: SODIUM CHLORIDE 1,000 ML IV SCH (07:45)
--- NOTE | 2016-07-11 07:45 | PDOC ---
History of Present Illness <Bing Donahue - Last Filed: 07/11/16 10:26> - History of Present Illness Initial Comments: 07/11/16 07:40 Patient seen immediately on arrival, documentation done later 70-year-old female with a past medical history of an old stroke with slurred speech and right-sided weakness, and a residual seizure disorder and 2009 She says that her symptoms did improve, but never resolved completely She also has a history of aortic stenosis, CAD with stents, CHF, hypertension, hyperlipidemia, mitral insufficiency, and diverticulitis She has a pacemaker/ AICD Patient states that 3 PM yesterday she started having worsening of her speech, and some increasing right arm or right leg weakness, and difficulty walking She states that the symptoms were initially off and on, but at 10 PM they became constant, and unchanged through the night, she awakened again with the symptoms this morning She denies any fall or head injury, she denies any seizure, she denies any recent intercurrent illness She takes Eliquis for a blood thinner Remainder of the review of systems preliminary review negative <Coretta Espinoza - Last Filed: 07/11/16 22:20> - General Chief Complaint: CVA/TIA Stated Complaint: POSSIBLE STROKE Time Seen by Provider: 07/11/16 07:30 Past History <Bing Donahue - Last Filed: 07/11/16 10:26> - Past Medical History Anemia: No Asthma: No Cancer: No Cardiac Disorders: Yes (HEART MURMUR, AFIB, AICD) CVA: Yes (TIA 2009) COPD: No CHF: No Dementia: No Diabetes: Yes (NIDDM) GI Disorders: (DIVERTICULAR DISEASE) Disorders: No HTN: Yes Hypercholesterolemia: Yes Liver Disease: No Suicide Attempt (Hx): No Seizures: Yes (2009) Thyroid Disease: No - Surgical History Abdominal Surgery: No Appendectomy: No Cardiac Surgery: Yes (cardiac stent/AICD) Cholecystectomy: No Lung Surgery: No Neurologic Surgery: No Orthopedic Surgery: Yes (CARPAL TUNNEL RELEASE, RIGHT ARM PINNING W/ RODS) - Immunization History Immunization Up to Date: Yes - Psycho/Social/Smoking Cessation Hx Anxiety: No Suicidal Ideation: No Smoking Status: Yes Smoking History: Former smoker Have you smoked in the past 12 months: No Number of Cigarettes Smoked Daily: 0 If you are a former smoker, when did you quit?: 1981 Information on smoking cessation initiated: No Hx Alcohol Use: No Drug/Substance Use Hx: No Substance Use Type: None Hx Substance Use Treatment: No <Coretta Espinoza - Last Filed: 07/11/16 22:20> - Past Medical History Allergies/Adverse Reactions: Allergies Allergy/AdvReac Type Severity Reaction Status Date / Time No Known Drug Allergies Allergy Verified 07/11/16 07:29 Home Medications: Ambulatory Orders Apixaban [Eliquis] 2.5 mg PO BID 04/18/16 Bupropion HCl [Wellbutrin -] 150 mg PO DAILY 04/18/16 Carvedilol [Coreg] 12.5 mg PO BID 04/18/16 Digoxin [Lanoxin -] 0.125 mg PO BID 04/18/16 Glipizide [Glipizide Xl] 5 mg PO BID 04/18/16 Hydralazine HCl 150 mg PO BID 04/18/16 Isosorbide Mononitrate 30 mg PO DAILY 04/18/16 Lamotrigine 100 mg PO BID 04/18/16 Ranitidine [Zantac -] 150 mg PO DAILY 04/18/16 Lipase/Protease/Amylase [Creon Dr 36,000 Units Capsule] 1 each PO DAILY Rifaximin [Xifaxan] 550 mg PO DAILY 07/11/16 Neuro Specific PMHX - Complaint Specific PMHX Migraine: Yes <Coretta Espinoza - Last Filed: 07/11/16 22:20> Review of Systems - Review of Systems Able to Perform ROS?: No <Coretta Espinoza - Last Filed: 07/11/16 22:20> *Physical Exam - Vital Signs Last Vital Signs Temp Pulse Resp BP Pulse Ox 110 H 18 164/104 100 07/11/16 07:30 07/11/16 07:30 07/11/16 07:30 07/11/16 07:30 <Bing Donahue - Last Filed: 07/11/16 10:26> - Vital Signs Last Vital Signs Temp Pulse Resp BP Pulse Ox 110 H 18 164/104 100 07/11/16 07:30 07/11/16 07:30 07/11/16 07:30 07/11/16 07:30 - Physical Exam Comments: 07/11/16 07:43 Physical exam Last Vital Signs Temp Pulse Resp BP Pulse Ox 110 H 18 164/104 100 07/11/16 07:30 07/11/16 07:30 07/11/16 07:30 07/11/16 07:30 Patient seen immediately on arrival by me GENERAL: The patient is awake, alert, and fully oriented, and in no apparent distress. HEAD: Normal with no signs of trauma. EYES: Pupils equal, sclera anicteric, conjunctiva are normal. ENT: Moist mucous membranes. NECK: Normal range of motion, supple LUNGS: clear bilat HEART: Regular rate and rhythm, normal S1 and S2 without murmur, rub or gallop. ABDOMEN: Soft, nontender, normoactive bowel sounds. No guarding, no rebound. No masses appreciated. EXTREMITIES: Normal range of motion, no edema. No clubbing or cyanosis. No cords, erythema, or tenderness. NEURO: Mental status: The patient is oriented x3. Cranial nerves: Subtle right facial droop Motor: There is right arm and right leg weakness Sensation: There is diminished sensation in the right face, right arm, right leg Cerebellar: There is some speech dysarthria, and there is slurred speech PSYCH: Normal mood, normal affect. SKIN: Warm, Dry, normal turgor, no rashes or lesions noted. NIH stroke scale 9 <Coretta Espinoza - Last Filed: 07/11/16 22:20> NIH Stroke Scale - Last Known Well Date/Time & Onset Date Last Known Well: 07/10/16 Time Last Known Well: 15:00 - Initial Evaluation Level of consciousness: Alert Ask patient the month and their age: Answers both correctly Ask patient to open & close eyes; make fist and let go: Obeys both correctly Best gaze (horizontal eye movement): Normal Visual field testing: No visual field loss Facial paresis (Show teeth/raise eyebrows/close eyes tight): Minor paralysis ( flattened nasolabial fold, asymmetry on smiling) Motor Function: Left Arm: Normal Motor Function: Right Arm: Some effort against gravity Motor Function: Left Leg: Normal (extends leg 30 degrees for 5 seconds without drift) Motor Function: Right Leg: Some effort against gravity Limb Ataxia: Present in one limb Sensory(Use pinprick test arms,legs,trunk,face/side to side): Mild to moderate decrease in sensation Best language (Describe picture, name items, read sentences): Mild to moderate aphasia Dysarthria (read several words): Mild to moderate slurring of words Extinction and Inattention: No abnormality - Total Score NIH Stroke Scale Score: 9 <Coretta Espinoza - Last Filed: 07/11/16 22:20> Critical Care Time/MDM Note - Medical Decision Making Note: CT/HEAD CT (STROKE) Clinical formation. Rule out CVA, TIA. CT brain C-. Comparison study: CT brain April 18, [address] scan of the brain c-. Comparison study CT brain noncontrast study February 01, 2016 Findings. Serial axial images of the brain were obtained from foramen magnum to the cranial vertex without intravenous contrast. The study was supplemented with computer-generated coronal and sagittal reconstruction images. No evidence of acute subarachnoid hemorrhage, acute intra-axial or extra-axial fluid collection consistent with subdural or epidural hematoma. No mass effect, midline shift, acute territorial ischemic changes, herniation or edema is present. Normal day matter white matter differentiation. Age-related involutional changes are noted. The right temporal horn of lateral ventricle is slightly dilated Examination of the bone windows show no fracture. The visualized paranasal sinuses and mastoid air cells are clear. Symmetrical optic globes. Unremarkable retro-orbital soft tissues. Intracranial vascular calcifications are noted Impression. No evidence of acute intracranial hemorrhage, edema, midline shift, mass effect , or skull fracture. No CT evidence of acute territorial infarction. Findings. Serial axial images of the brain were obtained from foramen magnum to the cranial vertex without intravenous contrast. The study was supplemented with computer-generated coronal and sagittal reconstruction images. [employer] image was reviewed. No evidence of acute subarachnoid hemorrhage, acute intra-axial or extra-axial fluid collection consistent with subdural or epidural hematoma. No mass effect, midline shift, acute territorial ischemic changes, herniation or edema is present. Normal day matter white matter differentiation. Auricle sulci, sylvian fissures, perimesencephalic cisterns are not effaced. The CSF spaces unchanged from prior study. No evidence of hydrocephalus. Age- related involutional changes are noted. Intracranial vascular calcifications are noted. Examination of the bone windows show no fracture. The visualized paranasal sinuses and mastoid air cells are clear. Impression. No evidence of acute intracranial hemorrhage, edema, midline shift, mass effect , or skull fracture. No CT evidence of acute territorial infarction. Reported By: Uzair Springer MD 07/11/16 0755 RAD/CHEST X-RAY PORTABLE* CVA. Single portable chest x-ray. Comparison study April 28, 2016. Right pacemaker with a single intact lead. Cardiomegaly. Uncoiled thoracic aorta. No evidence of CHF, pulmonary infiltrates , atelectasis, pleural effusion or pneumothorax. The right diaphragm is slightly elevated. Intact visualized osseous structures. No evidence of widening of the superior mediastinum. Impression. Cardiomegaly. No evidence of CHF, pulmonary infiltrates, atelectasis, pleural effusion, or pneumothorax. Reported By: Uzair Springer MD 07/11/16 0940 07/11/16 07:[address] Jones who called back immediately at 0733, the patient's case was discussed. 07/11/16 08:[address] Jones at 0807, awaiting call back. 07/11/16 08:[address] Jones for a second time at 0812, awaiting call back. 07/11/16 08:18 Dr. Jones called back at 0818. Discussed CT scan report with Dr. Jones who recommends the patient continue taking her eliquis. The patient is not a good candidate for TPA. 07/11/16 09:[address] Gerardo at 0950, awaiting call back. Dr. Brower called back at 10:01, patient's case was discussed. 07/11/16 10:[address] Marlow at 10:10, patient's case was discussed. <Bing Donahue - Last Filed: 07/11/16 10:26> - Medical Decision Making Note: 07/11/16 07:47 70-year-old female with a prior stroke, with some residual a, who is on Eliquis at this time, presents with onset of symptoms, initially stuttering sx, at 3 PM yesterday, and then constant at 10 PM yesterday, with speech dysarthria, facial droop, slurred speech, right arm and right leg weakness, which is in the same distribution as her prior stroke, but worse than her prior symptoms Case discussed with neurology- Dr Jones -at 7:30 AM - patient and CAT scan at this time Patient is not a candidate for TPA Stat CT scan of the head-code stroke protocol No evidence of acute intracranial hemorrhage, edema, midline shift, mass effect , or skull fracture No CT evidence of acute territorial infarction Case discussed with neurology-Dr. Jones - patient is not a candidate for TPA due to time of onset of symptoms 07/11/16 08:34 EKG Sinus tachycardia 108, normal axis Borderline first degree AV block Normal QRS duration Normal QTC There is poor R wave across the anterior precordium, and there is lateral ST segment depression When compared to the EKG of 04/19/16 Today's EKG is unchanged from the old EKG, and the lateral ST depression was present on the prior EKG 07/11/16 09:24 Laboratory Results - last 24 hr 07/11/16 07/11/16 07/11/16 07:40 07:40 07:40 WBC 4.2 RBC 4.60 Hgb 13.4 Hct 41.2 MCV 89.6 MCHC 32.5 RDW 14.9 Plt Count 231 D MPV 7.8 Neutrophils % 53.4 Lymphocytes % 28.0 Monocytes % 14.4 H Eosinophils % 3.8 Basophils % 0.4 INR 1.29 H Sodium 139 Potassium 4.9 Chloride 102 Carbon Dioxide 26 Anion Gap 11 BUN 20 H D Creatinine 1.3 H Creat Clearance w eGFR 40.49 Random Glucose 118 H D Calcium 9.5 Total Bilirubin 0.7 D AST 45 H ALT 34 Alkaline Phosphatase 168 H D Creatine Kinase 1000 H Troponin I 0.10 H Total Protein 8.5 H Albumin 3.7 Triglycerides 80 Cholesterol 224 H D Total LDL Cholesterol 135 H HDL Cholesterol 84 H D Blood Type Antibody Screen 07/11/16 07:40 WBC RBC Hgb Hct MCV MCHC RDW Plt Count MPV Neutrophils % Lymphocytes % Monocytes % Eosinophils % Basophils % INR Sodium Potassium Chloride Carbon Dioxide Anion Gap BUN Creatinine Creat Clearance w eGFR Random Glucose Calcium Total Bilirubin AST ALT Alkaline Phosphatase Creatine Kinase Troponin I Total Protein Albumin Triglycerides Cholesterol Total LDL Cholesterol HDL Cholesterol Blood Type B POSITIVE Antibody Screen Negative Elevated CK and troponin No chest pain at this time Patient was able to swallow water, will order her morning Eliquis Case discussed with Dr Marlow- admit 07/11/16 10:[address] Brower-will see patient in consult On further history from Dr. Marlow, patient has been having some unstable angina symptoms in the past few weeks, having chest pain with exertion, and the chest pain goes away with rest She is pain-free at this time <Coretta Espinoza - Last Filed: 07/11/16 22:20> Discharge Disposition <Bing Donahue - Last Filed: 07/11/16 10:26> - Discharge Dispostion Last Admission D/C Date: 04/20/16 Admit: Yes <Coretta Espinoza - Last Filed: 07/11/16 22:20> - Diagnosis Acute CVA (cerebrovascular accident), Elevated troponin, Abnormal EKG - Referrals
[2016-07-11 07:57] LABS: BASOPHIL 0.4 % (0-2.0); EOSINOPHIL 3.8 % (0-4.5); MCH 29.1 pg (25.7-33.7); MCHC 32.5 g/dl (32.0-36.0); MEAN CELL VOLUME 89.6 fl (80-96); MEAN PLT VOLUME 7.8 fl (7.5-11.1); NEUTROPHILS 53.4 % (42.8-82.8); PLATELET COUNT 231 K/MM3 (134-434); RDW 14.9 % (11.6-15.6); WHITE BLOOD COUNT 4.2 K/mm3 (4.0-10.0)
[2016-07-11 08:24] LABS: INR 1.29 (0.82-1.09); PROTHROMBIN TIME (PATIENT) 14.3 SEC (9.98-11.88)
[2016-07-11 08:36] LABS: ALBUMIN 3.7 g/dl (3.4-5.0); BILIRUBIN,TOTAL 0.7 mg/dL (0.2-1.0); CALCIUM 9.5 mg/dL (8.5-10.1); CREATININE 1.3 mg/dL (0.55-1.02); TOT PROT 8.5 g/dl (6.4-8.2)
[2016-07-11 08:48] LABS: TROPONIN I 0.1 ng/ml (0.00-0.05)
[2016-07-11] MEDS ORDERED: APIXABAN 2.5 MG TABLET PO ONE (09:38)
--- NOTE | 2016-07-11 10:10 | CON.CARD ---
Consult Consult Specialty:: cardiology Reason for Consultation:: CVA; hx severe systolic LV dysfunction -->ICD - History of Present Illness Chief Complaint: Pt alert; cannot move right side (started 2 days ago). History of Present Illness: 70-year-old black female with a past medical history of an "old stroke" with slurred speech and right-sided weakness, with ?resolution except for residual seizure disorder in 2009; severe LV dysfunction-->ICD; CAD-->PCI; HTN; hyperlipidemia; moderate aortic stenosis; diverticulitis. She says that her symptoms did in oral, but never resolved completely Patient states that 3 PM yesterday she started having worsening of her speech, and some increasing right arm or right leg weakness, and difficulty walking She states that the symptoms were initially off and on, but at 10 PM they became constant, and unchanged through the night, she awakened again with the symptoms this morning She denies any fall or head injury, she denies any seizure, she denies any recent intercurrent illness She takes Eliquis for a blood thinner, and says she has been compliant to all medications. Remainder of the review of systems preliminary review negative - History Source History Provided By: Patient, Medical Record Limitations to Obtaining History: No Limitations - Past Medical History [employer]: Yes: CVA, 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 due to microlithiasis, subclinical vs. perforated diverticulum. elev amylase lipase) Renal/: Yes: Renal Inusuff Reproductive: Yes: Postmenopausal ...: No Psych: Yes: Anxiety Endocrine: Yes: Diabetes Mellitus - Past Surgical History Past Surgical History: Yes: AICD, Colonoscopy (04/2014 severe diverticulosis and adhesions w/sigmoid inflamm, int hemorr, hyperplastic polyps icv, melanosis coli ), Hysterectomy, Stent - Alcohol/Substance Use Hx Alcohol Use: No - Smoking History Smoking history: Former smoker Have you smoked in the past 12 months: No Aproximately how many cigarettes per day: 0 If you are a former smoker, when did you quit?: 1981 - Social History Usual Living Arrangement: Alone ADL: Independent Occupation: No checmical exposure in workplace. History of Recent Travel: No Home Medications - Allergies Allergies/Adverse Reactions: Allergies Allergy/AdvReac Type Severity Reaction Status Date / Time No Known Drug Allergies Allergy Verified 07/11/16 07:29 - Home Medications Home Medications: Ambulatory Orders Apixaban [Eliquis] 2.5 mg PO BID 04/18/16 Bupropion HCl [Wellbutrin -] 150 mg PO DAILY 04/18/16 Carvedilol [Coreg] 12.5 mg PO BID 04/18/16 Digoxin [Lanoxin -] 0.125 mg PO BID 04/18/16 Glipizide [Glipizide Xl] 5 mg PO BID 04/18/16 Hydralazine HCl 150 mg PO BID 04/18/16 Isosorbide Mononitrate 30 mg PO DAILY 04/18/16 Lamotrigine 100 mg PO BID 04/18/16 Ranitidine [Zantac -] 150 mg PO DAILY 04/18/16 Lipase/Protease/Amylase [Creon Dr 36,000 Units Capsule] 1 each PO DAILY Rifaximin [Xifaxan] 550 mg PO DAILY 07/11/16 Family Disease History - Family Disease History Family Disease History: [place]: Sister (Breast), Other: Son (CVA age 40) Review of Systems - Review of Systems Constitutional: reports: Weakness Eyes: reports: No Symptoms HENT: reports: No Symptoms Neck: reports: No Symptoms Cardiovascular: reports: No Symptoms Respiratory: reports: No Symptoms Gastrointestinal: reports: No Symptoms Genitourinary: reports: No Symptoms Musculoskeletal: reports: Muscle Weakness Neurological: reports: Weakness Psychiatric: reports: Anxiety, Depression - Risk Factors Known Risk Factors: Yes: Age, Diabetes Mellitus, Hypercholesterolemia, Hypertension, Physical Inactivity, Prior UT /Emb Stroke, Race, Other (systolic CHF; CAD-->PCI) Vital Signs: Vital Signs Temperature Pulse Rate 107 H 07/11/16 09:07 Respiratory Rate 18 07/11/16 09:07 Blood Pressure 147/98 07/11/16 09:07 O2 Sat by Pulse Oximetry (%) 98 07/11/16 09:07 Constitutional: Yes: Anxious Eyes: Yes: WNL HENT: Yes: WNL Neck: Yes: WNL Respiratory: Yes: Regular Gastrointestinal: Yes: Soft Renal/: No: Anuria Cardiovascular: Yes: Pulse Irregular JVD: No Carotid Bruit: No PMI: Displaced Heart Sounds: Yes: S1 (varies in intensity), Split S2 Murmur: Yes: Systolic Murmur, Grade 2 Musculoskeletal: Yes: Muscle Weakness Extremities: Yes: Cool Edema: No Peripheral Pulses WNL: No Peripheral Pulses: 1+ Left Doralis Pedis, 1+ Right Dorsalis Pedis Neurological: Yes: Weakness Psychiatric: Yes: Alert, Oriented - Other Data Labs, Other Data: INR, PTT INR 1.29 (0.82-1.09) H 07/11/16 07:40 Abnormal Lab Results 07/11/16 07/11/16 07/11/16 07:40 07:40 07:40 Monocytes % 14.4 H INR 1.29 H BUN 20 H D Creatinine 1.3 H Random Glucose 118 H D AST 45 H Alkaline Phosphatase 168 H D Creatine Kinase 1000 H CK-MB (CK-2) 55.195 H Troponin I 0.10 H Total Protein 8.5 H Cholesterol 224 H D Total LDL Cholesterol 135 H HDL Cholesterol 84 H D Urine Protein Ur Leukocyte Esterase 07/11/16 10:10 Monocytes % INR BUN Creatinine Random Glucose AST Alkaline Phosphatase Creatine Kinase CK-MB (CK-2) Troponin I Total Protein Cholesterol Total LDL Cholesterol HDL Cholesterol Urine Protein 1+ H Ur Leukocyte Esterase 3+ H D Prior Cardiac Procedures: PTCA with Stent Ejection Fraction %: LVEF < 40 % Imaging - Results Chest X-ray: Image Reviewed (no acute pathology) Cat Scan: Image Reviewed (head: no evidence of acute pathology) EKG: Image Reviewed (AT vs Atrial flutter) Problem List - Problems (1) Acute CVA (cerebrovascular accident) Assessment/Plan: weakness on right side; no acute pathology on head CT. F/u with neurologist. Code(s): I63.9 - CEREBRAL INFARCTION, UNSPECIFIED (2) Acute on chronic systolic and diastolic heart failure, NYHA class 4 Assessment/Plan: digoxin level in am; keep 0.5-1.0. Start hydrlazine; continue Imdur. In the past, pt has had episodes of hyperkalemia. Continue Entresto (which has valsartan, an ARB); follow BUN/Cr and K+ closely. She has not been able to be on spironolactone due to hyperkalemia. Daily weights; Is and Os. Code(s): I50.43 - ACUTE ON CHRONIC COMBINED SYSTOLIC AND DIASTOLIC HRT FAIL (3) Coronary artery disease Code(s): I25.10 - ATHSCL HEART DISEASE OF [place] CORONARY ARTERY W/O ANG PCTRS Qualifiers: Coronary Disease-Associated Artery/Lesion type: [place] artery [place] vs. transplanted heart: [place] heart Associated angina: without angina Qualified Code(s): I25.10 - Atherosclerotic heart disease of [place] coronary artery without angina pectoris (4) Elevated troponin Assessment/Plan: 1st level 0.10, with CK/MB relative index >5 (the latter may occur with UT, but also with CVA). F/u TNI, EKGs, telemetry. Code(s): R74.8 - ABNORMAL LEVELS OF OTHER SERUM ENZYMES (5) Diabetes mellitus Code(s): E11.9 - TYPE 2 DIABETES MELLITUS WITHOUT COMPLICATIONS Qualifiers: Diabetes mellitus type: type 2 Diabetes mellitus complication status: with other specified complication (6) Atrial fibrillation and flutter Assessment/Plan: On carvedilol, digoxin. On apixaban. Code(s): I48.91 - UNSPECIFIED ATRIAL FIBRILLATION I48.92 - UNSPECIFIED ATRIAL FLUTTER (7) Anxiety and depression Code(s): F41.8 - OTHER SPECIFIED ANXIETY DISORDERS (8) Hypertension Assessment/Plan: f/u BP serially; started on hydralazine (for HTN and systolic CHF); on Entreto ( which has valsartan), Imdur, carvedilol. Code(s): I10 - ESSENTIAL (PRIMARY) HYPERTENSION Qualifiers: Hypertension type: essential hypertension Qualified Code(s): I10 - Essential (primary) hypertension (9) Seizure disorder Code(s): G40.909 - EPILEPSY, UNSP, NOT INTRACTABLE, WITHOUT STATUS EPILEPTICUS (10) Hyperlipidemia Assessment/Plan: increase atorvastatin; keep LDL < 70 mg/dL. Code(s): E78.5 - HYPERLIPIDEMIA, UNSPECIFIED (11) Elevated CA-125 Assessment/Plan: elevated 04/2015; usually associated with ovarian CA. F/u PMHx; f/u with oncologist. Code(s): R97.1 - ELEVATED CANCER ANTIGEN 125 [CA 125]
[2016-07-11 10:37] LABS: URINE APPEARANCE CLEAR; URINE BILIRUBIN NEGATIVE (NEGATIVE); URINE BLOOD NEGATIVE (NEGATIVE); URINE COLOR LTYELLOW; URINE GLUCOSE (UA) NEGATIVE (NEGATIVE); URINE KETONE NEGATIVE (NEGATIVE); URINE NITRITE NEGATIVE (NEGATIVE); URINE UROBILINOGEN NEGATIVE E.U./dl (0.2-1.0)
[2016-07-11 11:14] LABS: URINE LEUK ESTERASE 3+ (NEGATIVE); URINE PROTEIN 1+ (NEGATIVE)
[2016-07-11 11:17] LABS: URINE RBC 7 /hpf (0-3); URINE WBC 21 /hpf (3-5)
--- NOTE | 2016-07-11 13:27 | EKG ---
Test Reason : Blood Pressure : / mmHG Vent. Rate : 108 BPM Atrial Rate : 108 BPM P-R Int : 208 ms QRS Dur : 094 ms QT Int : 320 ms P-R-T Axes : 109 009 111 degrees QTc Int : 428 ms QUESTIONABLE ATRIAL TACHYCARDIA VS. ATRIAL FLUTTER RSR' OR QR PATTERN IN V1 SUGGESTS RIGHT VENTRICULAR CONDUCTION DELAY ANTERIOR INFARCT (CITED ON OR BEFORE 18-APR-2016) ABNORMAL ECG WHEN COMPARED WITH ECG OF 19-APR-2016 10:43, VENT. RATE HAS INCREASED Confirmed by MINI TELLEZ MD ([id number]) on 07/11/2016 1:26:25 PM Referred By: Confirmed By:MINI TELLEZ MD
[2016-07-11] MEDS ORDERED: ACETAMINOPHEN 325 MG TABLET (FP) PO PRN (14:46)
[2016-07-11 14:55] VITALS: BMI 23.6
[2016-07-11] MEDS ORDERED: DEXTROSE 5%-0.45% SALINE 1,000 ML IV SCH (15:00)
--- NOTE | 2016-07-11 15:23 | CONSULT ---
Consult Consult Specialty:: Neurology Reason for Consultation:: worsening right sided weakness, changes in speech - History of Present Illness History of Present Illness: 70 year old woman, history of previous stroke with residual dysarthria and right hemiparesis, epilepsy?, multiple cardiac issues status post pacer, currently on eliquis, presents with worsening right hemiparesis and speech difficulties. The patient denies head injury, recent seizure, or other neurological complaints. CT head shows no acute findings On exam, mild right hemiparesis noted. Patient is stuttering and states she has noted stuttering on and off, no dysarthria noted on exam. She is unable to provide further history on her history of epilepsy in the past but denies any recent events. 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 due to microlithiasis, subclinical vs. perforated diverticulum. elev amylase lipase) Renal/: Yes: Renal Inusuff Psych: Yes: Anxiety Endocrine: Yes: Diabetes Mellitus - Past Surgical History Past Surgical History: Yes: AICD, Colonoscopy (04/2014 severe diverticulosis and adhesions w/sigmoid inflamm, int hemorr, hyperplastic polyps icv, melanosis coli ), Hysterectomy, Stent - Alcohol/Substance Use Hx Alcohol Use: No - Smoking History Smoking history: Former smoker Have you smoked in the past 12 months: No Aproximately how many cigarettes per day: 0 If you are a former smoker, when did you quit?: 1981 - Social History Usual Living Arrangement: Alone ADL: Independent Occupation: No checmical exposure in workplace. History of Recent Travel: No Home Medications - Allergies Allergies/Adverse Reactions: Allergies Allergy/AdvReac Type Severity Reaction Status Date / Time No Known Drug Allergies Allergy Verified 07/11/16 07:29 - Home Medications Home Medications: Ambulatory Orders Apixaban [Eliquis] 2.5 mg PO BID 04/18/16 Bupropion HCl [Wellbutrin -] 150 mg PO DAILY 04/18/16 Carvedilol [Coreg] 12.5 mg PO BID 04/18/16 Digoxin [Lanoxin -] 0.125 mg PO BID 04/18/16 Glipizide [Glipizide Xl] 5 mg PO BID 04/18/16 Hydralazine HCl 150 mg PO BID 04/18/16 Isosorbide Mononitrate 30 mg PO DAILY 04/18/16 Lamotrigine 100 mg PO BID 04/18/16 Ranitidine [Zantac -] 150 mg PO DAILY 04/18/16 Lipase/Protease/Amylase [Creon Dr 36,000 Units Capsule] 1 each PO DAILY Rifaximin [Xifaxan] 550 mg PO DAILY 07/11/16 Family Disease History - Family Disease History Family Disease History: CA: Sister (Breast), Other: Son (CVA age 40) Review of Systems - Review of Systems Constitutional: reports: No Symptoms Eyes: reports: No Symptoms HENT: reports: No Symptoms Neck: reports: No Symptoms Cardiovascular: reports: No Symptoms Respiratory: reports: No Symptoms Gastrointestinal: reports: No Symptoms Neurological: reports: Change in Speech Physical Exam Vital Signs: Vital Signs Temperature Pulse Rate 19 L 07/11/16 12:05 Respiratory Rate 17 07/11/16 12:05 Blood Pressure 134/87 07/11/16 12:05 O2 Sat by Pulse Oximetry (%) 99 07/11/16 12:05 Constitutional: Yes: No Distress Eyes: Yes: Conjunctiva Clear, EOM Intact HENT: Yes: Atraumatic, Normocephalic Cardiovascular: Yes: S1, S2 Respiratory: Yes: Regular Neurological: Yes: Alert, Oriented, Cran Nerves II-XII Intact ...Motor Strength: RUE, RLE (mild right hemiparesis) Assessment/Plan 70 year old woman, history of previous stroke with residual dysarthria and right hemiparesis, epilepsy?, multiple cardiac issues status post pacer, currently on eliquis, presents with worsening right hemiparesis and speech difficulties. The patient denies head injury, recent seizure, or other neurological complaints. CT head shows no acute findings On exam, mild right hemiparesis noted. Patient is stuttering and states she has noted stuttering on and off, no dysarthria noted on exam. She is unable to provide further history on her history of epilepsy in the past but denies any recent events. Worsening right hemiparesis TIA versus stroke, stuttering unlikely neurologic CT head shows no acute findings Recommend MRI- however patient has a pacemaker Carotid doppler Echocardiogram LDL, hgalc Continue eliquis PT/OT Infectious workup Will follow
[2016-07-11] MEDS: INSULIN SLIDING SCALE (NOVOLOG) 1 VIAL SQ SCH ×2 (17:25→22:02)
--- NOTE | 2016-07-11 17:26 | CONSULT ---
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 due to microlithiasis, subclinical vs. perforated diverticulum. elev amylase lipase) Renal/: Yes: Renal Inusuff Psych: Yes: Anxiety Endocrine: Yes: Diabetes Mellitus - Past Surgical History Past Surgical History: Yes: AICD, Colonoscopy (04/2014 severe diverticulosis and adhesions w/sigmoid inflamm, int hemorr, hyperplastic polyps icv, melanosis coli ), Hysterectomy, Stent - Smoking History Smoking history: Former smoker Have you smoked in the past 12 months: No Aproximately how many cigarettes per day: 0 If you are a former smoker, when did you quit?: 1982 - Alcohol/Substance Use Hx Alcohol Use: No - Social History ADL: Independent Occupation: No checmical exposure in workplace. History of Recent Travel: No History - Admission Reason For Visit: ELEVATED TRPONIN,ABN EKD,CVA - Hearing Hearing: Normal Speech Evaluation - Communication Primary Language: KOREAN Communication: Yes: Within Normal Limits Oral Expression Ability: Yes: No Impairment - Speech Production Apraxia: No Able to Make Needs Known: Yes: WNL Intelligibility: Yes: WNL - Speech Characteristics Voice Loudness: Normal Voice Pitch: Yes: Normal Voice Phonatory-based Quality: Yes: Normal Speech Pattern: Normal Nasal Resonance: Normal Articulation: Yes: Precise Rate of Speech: Intact - Language/Auditory Comprehension Follows: Yes: 1 Stage Simple Commands (WFL), 2 Stage Simple Commands (WFL), Complex Commands (Within physical abilities) Observation: Able to respond to yes/no queries: Yes, Yes/No Confusion: No, Comprehends Conversational Speech: Yes, Benefits from Slow Speech: Yes, Benefits from Repetiton: Yes, Benefits from Increased Volume of Speech: No - Language/Verbal Expression Able to Respond to Simple Queries: Yes: WNL Able to Communicate Wants and Needs: Yes: WNL Functional Communication Status: Yes: WNL Aware of Errors: Yes Attempts to Correct Errors: Yes Use of Gestures: Yes Written Expression: Not examined Oral Expression: functional for her environment Reading Comprehension: Not examined Calculations: Not examined Attention: Yes: Intact - Memory/Perception termination clerk Memory: Yes: WNL Short Term Memory: Yes: WNL - Swallow Evaluation/Bedside Assessment Current Nutritional Intake: Dysphagia Minced, [place] Textured Liquids Oral Secretions: Yes: WFL Tracheostomy Present: No Patient on Ventilator: No Dentition: Yes: Edentulous (Pt has upper and lower incisors. Missing canines and molars on bottom) Facial Symmetry at Rest: Facial Droop Right (mild, barely noticible) Facial Symmetry on Retraction: Facial Droop Right Facial Movement: Controlled Sensation: Normal Facial Comment: wfl for speech and swallowing purposes Jaw Position: Closed at Rest Against Resistance Opening: Normal Against Resistance Closing: Normal Pucker Lips: Normal Smile: Normal Lips, Comment: wfl for speech and swallowing purposes Lingual Movement: Normal Lingual Speed of Movement: Normal Lingual Movement Strgth Against Opposition: Normal Lingual Movement Characteristics: Normal Lingual Comment: wfl for speech and swallowing purposes Soft Palate Description: Normal Color, Normal Arch Hard Palate Description: Normal Color, Normal Arch Gag Reflex: Strong Velopharyngeal Movement: Weak Right Laryngeal Elevation: WFL Laryngeal Movement: Able to Palpate Needs Assistance: No Rate of Intake: WFL Bolus Size: WFL Sensation: Bite Reflex Labial Seal: WFL A-P Transit: WFL Pocketing: None Timing of Swallow: WFL Odynophagia: Oral (secondary to edentulous status) Coughing/Throat Clear: No Change in Voice: No Other Findings/Remarks: 70 year old female seen at bedside for swallow eval to rule out dysphagia. Pt is verbal, cooperative, A&Ox3. Follows directives. Adequate airway protection. PMHX includes stroke with mild right sided weakness, dysarthria. Pt admitted for right side weakness and reported speech dysfluency (resolved). Pt given po trials of puree, and soft solids without assistance revealed good acceptance, mastication, bolus formation and A-P transport is delayed secondary to dental status. Pharyngeal swallow appear timely for all consistencies. No changes in voicing and /or respiration at this time. Pt reported that she occassionally feels food stuck in the back her throat after swallow. TOLL BOOTH OPERATOR modeled a chin tuck maneuver for pt. Pt reported that bolus felt like it was gone after chin tuck. Thin liquid trial using cup and straw were unremarkable for dysphagia and / or aspiration. Recommendations - Speech Evaluation, Impression/Plan Impression: 70 year old female present with mild dysarthria of the right side. Oral phase dysphagia present secondary to dental status. No evidence of aspiration at this time for solids or liquids. Speech appears to have resolved as no dysfluencies were observed at this time. Recommended Therapies: Speech, Fluency Longterm Goals: Tolerate the least restrictive diet without s/s of aspiration. Short Term Goals: Tolerate soft solids and thin liquids without s/s of aspiration. - Dysphagia Impressions/Plan Swallowing Skills: Impaired (Secondary to right sided weakness and dental status.) Dysphagia Impressions: Mild Impairment Dysphagia Treatment Plan: Chin Tuck/Down, Head Turn Right, Safe Rate, 1/2 tsp. at a time, Elevate HOB during feed, Other (alternate liquids for every 2-3 bites of solids.) Dysphagia Evaluation Summary: Pt presents with mild oral phase dysphagia for puree, mech soft and soft solids. No s/s of aspiration with solids or liquids at this time. Recommmend soft solids and thin liquids as tolerated. Results given to technical manager chemical plant and pcp via chart. TOLL BOOTH OPERATOR to follow up for diet tolerance. Recommendations: ENT Consult (To determine if there is any abnormalities without the pharyngeal / laryngeal structures.) - Recommendations Diet Consistency: 1 - 2 Soft Items Medication Administration: Whole with water Liquids: Thin Liquids
--- NOTE | 2016-07-11 17:32 | HP ---
Admitting History and Physical - Primary Care Physician PCP: Kei Marlow - Admission Chief Complaint: WEAKNESS/SLURRED SPEECH History of Present Illness: 70-year-old female with a past medical history of an old stroke with slurred speech and right-sided weakness, and a residual seizure disorder and 2009 She says that her symptoms did in oral, but never resolved completely She also has a history of aortic stenosis, CAD with stents, CHF, Dementia, hypertension, hyperlipidemia, mitral insufficiency, and diverticulitis She has a pacemaker/ AICD Patient states that 3 PM yesterday she started having worsening of her speech, and some increasing right arm or right leg weakness, and difficulty walking She states that the symptoms were initially off and on, but at 10 PM they became constant, and unchanged through the night, she awakened again with the symptoms this morning She denies any fall or head injury, she denies any seizure, she denies any recent intercurrent illness She takes Eliquis for a blood thinner Remainder of the review of systems preliminary review negative History Source: Patient, Medical Record Limitations to Obtaining History: Clinical Condition - Past Medical History 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 due to microlithiasis, subclinical vs. perforated diverticulum. elev amylase lipase) Renal/: Yes: Renal Inusuff Psych: Yes: Anxiety Endocrine: Yes: Diabetes Mellitus - Past Surgical History Past Surgical History: Yes: AICD, Colonoscopy (04/2014 severe diverticulosis and adhesions w/sigmoid inflamm, int hemorr, hyperplastic polyps icv, melanosis coli ), Hysterectomy, Stent - Smoking History Smoking history: Former smoker Have you smoked in the past 12 months: No Aproximately how many cigarettes per day: 0 If you are a former smoker, when did you quit?: 1981 - Alcohol/Substance Use Hx Alcohol Use: No - Social History ADL: Independent Occupation: No checmical exposure in workplace. History of Recent Travel: No Home Medications - Allergies Allergies/Adverse Reactions: Allergies Allergy/AdvReac Type Severity Reaction Status Date / Time No Known Drug Allergies Allergy Verified 07/11/16 07:29 - Home Medications Home Medications: Ambulatory Orders Apixaban [Eliquis] 2.5 mg PO BID 04/18/16 Bupropion HCl [Wellbutrin -] 150 mg PO DAILY 04/18/16 Carvedilol [Coreg] 12.5 mg PO BID 04/18/16 Digoxin [Lanoxin -] 0.125 mg PO BID 04/18/16 Glipizide [Glipizide Xl] 5 mg PO BID 04/18/16 Hydralazine HCl 150 mg PO BID 04/18/16 Isosorbide Mononitrate 30 mg PO DAILY 04/18/16 Lamotrigine 100 mg PO BID 04/18/16 Ranitidine [Zantac -] 150 mg PO DAILY 04/18/16 Lipase/Protease/Amylase [Creon Dr 36,000 Units Capsule] 1 each PO DAILY Rifaximin [Xifaxan] 550 mg PO DAILY 07/11/16 Family Disease History - Family Disease History Family Disease History: CA: Sister (Breast), Other: Son (CVA age 40) Review of Systems - Review of Systems Constitutional: reports: Lethargy, Weakness Eyes: reports: No Symptoms HENT: reports: Other Neck: reports: Other Cardiovascular: reports: No Symptoms Respiratory: reports: No Symptoms Gastrointestinal: reports: No Symptoms Genitourinary: reports: No Symptoms Musculoskeletal: reports: Muscle Weakness Integumentary: reports: No Symptoms Neurological: reports: Confusion, Incoordination, Pre-Existing Deficit, Unsteady Gait, Weakness Endocrine: reports: No Symptoms Hematology/Lymphatic: reports: No Symptoms Physical Examination Vital Signs: Vital Signs Temperature Pulse Rate 109 H 07/11/16 14:48 Respiratory Rate 18 07/11/16 16:33 Blood Pressure 154/106 07/11/16 14:48 O2 Sat by Pulse Oximetry (%) 96 07/11/16 16:33 Constitutional: Yes: Moderate Distress Eyes: Yes: WNL HENT: Yes: WNL Neck: Yes: WNL Cardiovascular: Yes: Pulse Irregular Respiratory: Yes: WNL Gastrointestinal: Yes: WNL Renal/: Yes: WNL Musculoskeletal: Yes: Muscle Weakness Extremities: Yes: WNL Edema: No Peripheral Pulses WNL: Yes Integumentary: Yes: WNL Wound/Incision: Yes: Clean/Dry Neurological: Yes: Pre-Existing Deficit, Weakness ...Motor Strength: LLE, RLE Psychiatric: Yes: Other (DEMENTIA EARLY) Problem List - Problems (1) Acute CVA (cerebrovascular accident) Code(s): I63.9 - CEREBRAL INFARCTION, UNSPECIFIED (2) Acute on chronic systolic and diastolic heart failure, NYHA class 4 Code(s): I50.43 - ACUTE ON CHRONIC COMBINED SYSTOLIC AND DIASTOLIC HRT FAIL (3) Coronary artery disease Code(s): I25.10 - ATHSCL HEART DISEASE OF [place] CORONARY ARTERY W/O ANG PCTRS Qualifiers: Coronary Disease-Associated Artery/Lesion type: [place] artery [place] vs. transplanted heart: [place] heart Associated angina: without angina Qualified Code(s): I25.10 - Atherosclerotic heart disease of [place] coronary artery without angina pectoris (4) Anxiety and depression Code(s): F41.8 - OTHER SPECIFIED ANXIETY DISORDERS (5) Atrial fibrillation Code(s): I48.91 - UNSPECIFIED ATRIAL FIBRILLATION Qualifiers: Atrial fibrillation type: chronic Qualified Code(s): I48.2 - Chronic atrial fibrillation (6) History of CVA (cerebrovascular accident) Code(s): Z86.73 - PRSNL HX OF TIA (TIA), AND CEREB INFRC W/O RESID DEFICITS (7) Hypertension Code(s): I10 - ESSENTIAL (PRIMARY) HYPERTENSION Qualifiers: Hypertension type: essential hypertension Qualified Code(s): I10 - Essential (primary) hypertension (8) Seizure disorder Code(s): G40.909 - EPILEPSY, UNSP, NOT INTRACTABLE, WITHOUT STATUS EPILEPTICUS (9) Dementia Code(s): F03.90 - UNSPECIFIED DEMENTIA WITHOUT BEHAVIORAL DISTURBANCE Assessment/Plan ACUTE CVA WITH HISTORY OF OLD CVA DEMENTIA EARLY WITH CONFUSION LIKELY INFARCT TYPE NEURO CHECKS AND FALL PRECAUTIONS CARDIOLOGY AND NEURO WORKUP IN PROGRESS LIPID PANEL TIGHT GLYCEMIC CONTROL CONSIDER SNF
[2016-07-11] MEDS ORDERED: PT OWN MED DRAWER 7, Y5N ONE (21:47)
[2016-07-11] MEDS: ATORVASTATIN CA 40 MG TABLET (FP) PO SCH (21:56)
[2016-07-11] MEDS: RANITIDINE HCL 150 MG TABLET (FP) PO SCH (21:56)
[2016-07-11] MEDS: hydrALAZINE HCL 10 MG TABLET PO SCH (21:57)
[2016-07-11] MEDS: APIXABAN 2.5 MG TABLET PO SCH (21:57)
[2016-07-11] MEDS: CARVEDILOL 12.5 MG TABLET (FP) PO SCH (21:57)
[2016-07-11] MEDS ORDERED: ATORVASTATIN CA 80 MG TABLET (FP) PO SCH (22:00)
[2016-07-11] MEDS ORDERED: ATORVASTATIN CA 20 MG TABLET (FP) PO SCH (22:00)
[2016-07-11] MEDS ORDERED: diphenhydrAMINE HCL 25 MG CAPSULE (FP) PO ONE (22:00)
[2016-07-11] MEDS: SACUBITRIL/VALSARTAN 49 MG-51 MG TABLET PO SCH (23:26)
[2016-07-12] MEDS: glipiZIDE-XL 5 MG TAB.ER.24 PO SCH (06:40)
[2016-07-12] MEDS: hydrALAZINE HCL 10 MG TABLET PO SCH ×3 (06:40→21:04)
[2016-07-12] MEDS: INSULIN SLIDING SCALE (NOVOLOG) 1 VIAL SQ SCH ×4 (06:41→21:05)
[2016-07-12] MEDS ORDERED: DEXTROSE 5%-0.45% SALINE 1,000 ML IV SCH (07:00)
[2016-07-12 08:08] LABS: MCH 28.9 pg (25.7-33.7); MCHC 32.4 g/dl (32.0-36.0); MEAN CELL VOLUME 89.2 fl (80-96); MEAN PLT VOLUME 8.6 fl (7.5-11.1); PLATELET COUNT 212 K/MM3 (134-434); RDW 15.4 % (11.6-15.6); WHITE BLOOD COUNT 4.2 K/mm3 (4.0-10.0)
[2016-07-12 08:24] LABS: INR 1.42 (0.82-1.09); PROTHROMBIN TIME (PATIENT) 15.7 SEC (9.98-11.88)
[2016-07-12 08:30] LABS: ALBUMIN 3.2 g/dl (3.4-5.0); BILIRUBIN,TOTAL 1.3 mg/dL (0.2-1.0); CALCIUM 9.2 mg/dL (8.5-10.1); CREATININE 1.1 mg/dL (0.55-1.02); TOT PROT 7.2 g/dl (6.4-8.2)
--- NOTE | 2016-07-12 10:28 | PN ---
Progress Note, Physician Chief Complaint: AWAKE AND MORE ALERT TODAY SLURRED SPEECH RESOLVING - Current Medication List Current Medications: Active Medications Acetaminophen (Tylenol -) 650 mg PO Q6H PRN PRN Reason: FEVER OR PAIN Last Admin: 07/11/16 21:56 Dose: 650 mg Apixaban (Eliquis -) 2.5 mg PO BID [facility] Last Admin: 07/11/16 21:57 Dose: 2.5 mg Atorvastatin Calcium (Lipitor -) 40 mg PO HS [facility] Last Admin: 07/11/16 21:56 Dose: 40 mg Bupropion HCl (Wellbutrin Xl -) 150 mg PO DAILY [facility] Carvedilol (Coreg -) 12.5 mg PO BID [facility] Last Admin: 07/11/16 21:57 Dose: 12.5 mg Digoxin (Lanoxin -) 0.125 mg PO DAILY [facility] Glipizide (Glucotrol Xl -) 5 mg PO DAILY@0700 [facility] Last Admin: 07/12/16 06:40 Dose: 5 mg Hydralazine HCl (Apresoline -) 10 mg PO TID [facility] Last Admin: 07/12/16 06:40 Dose: 10 mg Dextrose/Sodium Chloride (D5-1/2ns -) 1,000 mls @ 42 mls/hr IV ASDIR [facility] Insulin Aspart (Novolog Vial Sliding Scale -) 1 vial SQ ACHS [facility] PRN Reason: Protocol Last Admin: 07/12/16 06:41 Dose: Not Given Isosorbide Mononitrate (Imdur -) 30 mg PO DAILY [facility] Lamotrigine (Lamictal -) 100 mg PO DAILY [facility] Ranitidine HCl (Zantac -) 150 mg PO BID [facility] Last Admin: 07/11/16 21:56 Dose: 150 mg - Objective Vital Signs: Vital Signs Temperature 98.6 F 07/12/16 05:00 Pulse Rate 68 07/12/16 05:00 Respiratory Rate 22 07/12/16 05:00 Blood Pressure 143/68 07/12/16 05:00 O2 Sat by Pulse Oximetry (%) 97 07/11/16 21:00 Constitutional: Yes: Mild Distress Eyes: Yes: WNL HENT: Yes: WNL Neck: Yes: WNL Cardiovascular: Yes: Pulse Irregular Respiratory: Yes: WNL Gastrointestinal: Yes: WNL Genitourinary: Yes: WNL Musculoskeletal: Yes: Muscle Weakness Extremities: Yes: WNL Edema: No Peripheral Pulses WNL: Yes Integumentary: Yes: WNL Wound/Incision: Yes: Clean/Dry Neurological: Yes: Pre-Existing Deficit ...Motor Strength: WNL Psychiatric: Yes: WNL Labs: CBC, BMP 07/12/16 05:42 07/12/16 05:42 INR, PTT INR 1.42 (0.82-1.09) H 07/12/16 05:42 Problem List - Problems (1) Acute CVA (cerebrovascular accident) Code(s): I63.9 - CEREBRAL INFARCTION, UNSPECIFIED (2) Acute on chronic systolic and diastolic heart failure, NYHA class 4 Code(s): I50.43 - ACUTE ON CHRONIC COMBINED SYSTOLIC AND DIASTOLIC HRT FAIL (3) Coronary artery disease Code(s): I25.10 - ATHSCL HEART DISEASE OF [place] CORONARY ARTERY W/O ANG PCTRS Qualifiers: Coronary Disease-Associated Artery/Lesion type: [place] artery [place] vs. transplanted heart: [place] heart Associated angina: without angina Qualified Code(s): I25.10 - Atherosclerotic heart disease of [place] coronary artery without angina pectoris (4) Anxiety and depression Code(s): F41.8 - OTHER SPECIFIED ANXIETY DISORDERS (5) Atrial fibrillation Code(s): I48.91 - UNSPECIFIED ATRIAL FIBRILLATION Qualifiers: Atrial fibrillation type: chronic Qualified Code(s): I48.2 - Chronic atrial fibrillation (6) History of CVA (cerebrovascular accident) Code(s): Z86.73 - PRSNL HX OF TIA (TIA), AND CEREB INFRC W/O RESID DEFICITS (7) Hypertension Code(s): I10 - ESSENTIAL (PRIMARY) HYPERTENSION Qualifiers: Hypertension type: essential hypertension Qualified Code(s): I10 - Essential (primary) hypertension (8) Seizure disorder Code(s): G40.909 - EPILEPSY, UNSP, NOT INTRACTABLE, WITHOUT STATUS EPILEPTICUS (9) Dementia Code(s): F03.90 - UNSPECIFIED DEMENTIA WITHOUT BEHAVIORAL DISTURBANCE Assessment/Plan ACUTE CVA WITH HISTORY OF OLD CVA DEMENTIA EARLY WITH CONFUSION LIKELY INFARCT TYPE NEURO CHECKS AND FALL PRECAUTIONS CARDIOLOGY AND NEURO WORKUP IN PROGRESS LIPID PANEL REVIEWED ON STATIN THERAPY TIGHT GLYCEMIC CONTROL OOB TO CHAIR WITH PT CONSIDER SNF
[2016-07-12] MEDS: RANITIDINE HCL 150 MG TABLET (FP) PO SCH ×2 (10:40→21:04)
[2016-07-12] MEDS: ISOSORBIDE MONONITRATE 30 MG TAB.SR.24H (FP) PO SCH (10:41)
[2016-07-12] MEDS: lamoTRIgine 100 MG TABLET (FP) PO SCH (10:41)
[2016-07-12] MEDS: CARVEDILOL 12.5 MG TABLET (FP) PO SCH (10:41)
[2016-07-12] MEDS: APIXABAN 2.5 MG TABLET PO SCH ×2 (10:41→21:04)
[2016-07-12] MEDS: DIGOXIN 0.125 MG TABLET (FP) PO SCH (10:41)
[2016-07-12] MEDS: SACUBITRIL/VALSARTAN 49 MG-51 MG TABLET PO SCH ×2 (10:42→21:07)
--- NOTE | 2016-07-12 10:44 | PN ---
Progress Note, Physician History of Present Illness: 70-year-old black female with a past medical history of an "old stroke" with slurred speech and right-sided weakness, with ?resolution except for residual seizure disorder in 2009; severe LV dysfunction-->ICD; CAD-->PCI; HTN; hyperlipidemia; moderate aortic stenosis; diverticulitis. She says that her symptoms did in oral, but never resolved completely Patient states that 3 PM yesterday she started having worsening of her speech, and some increasing right arm or right leg weakness, and difficulty walking She states that the symptoms were initially off and on, but at 10 PM they became constant, and unchanged through the night, she awakened again with the symptoms this morning She denies any fall or head injury, she denies any seizure, she denies any recent intercurrent illness She takes Eliquis for a blood thinner, and says she has been compliant to all medications. Remainder of the review of systems preliminary review negative - Current Medication List Current Medications: Active Medications Acetaminophen (Tylenol -) 650 mg PO Q6H PRN PRN Reason: FEVER OR PAIN Last Admin: 07/11/16 21:56 Dose: 650 mg Apixaban (Eliquis -) 2.5 mg PO BID [facility] Last Admin: 07/12/16 10:41 Dose: 2.5 mg Atorvastatin Calcium (Lipitor -) 40 mg PO HS [facility] Last Admin: 07/11/16 21:56 Dose: 40 mg Bupropion HCl (Wellbutrin Xl -) 150 mg PO DAILY [facility] Last Admin: 07/12/16 10:41 Dose: 150 mg Carvedilol (Coreg -) 12.5 mg PO BID [facility] Last Admin: 07/12/16 10:41 Dose: 12.5 mg Digoxin (Lanoxin -) 0.125 mg PO DAILY [facility] Last Admin: 07/12/16 10:41 Dose: 0.125 mg Ezetimibe (Zetia -) 10 mg PO DAILY [facility] Glipizide (Glucotrol Xl -) 5 mg PO DAILY@0700 [facility] Last Admin: 07/12/16 06:40 Dose: 5 mg Hydralazine HCl (Apresoline -) 10 mg PO TID [facility] Last Admin: 07/12/16 06:40 Dose: 10 mg Dextrose/Sodium Chloride (D5-1/2ns -) 1,000 mls @ 42 mls/hr IV ASDIR [facility] Last Admin: 07/12/16 10:40 Dose: Not Given Insulin Aspart (Novolog Vial Sliding Scale -) 1 vial SQ ACHS [facility] PRN Reason: Protocol Last Admin: 07/12/16 06:41 Dose: Not Given Isosorbide Mononitrate (Imdur -) 30 mg PO DAILY [facility] Last Admin: 07/12/16 10:41 Dose: 30 mg Lamotrigine (Lamictal -) 100 mg PO DAILY [facility] Last Admin: 07/12/16 10:41 Dose: 100 mg Ranitidine HCl (Zantac -) 150 mg PO BID [facility] Last Admin: 07/12/16 10:40 Dose: 150 mg - Objective Vital Signs: Vital Signs Temperature 97.6 F 07/12/16 09:00 Pulse Rate 63 07/12/16 10:41 Respiratory Rate 18 07/12/16 09:00 Blood Pressure 140/83 07/12/16 09:00 O2 Sat by Pulse Oximetry (%) 97 07/12/16 09:00 Eyes: Yes: WNL, Conjunctiva Clear, EOM Intact HENT: Yes: WNL, Atraumatic, Normocephalic Neck: Yes: WNL, Supple, Trachea Midline Cardiovascular: Yes: WNL, Regular Rate and Rhythm Respiratory: Yes: WNL, Regular, CTA Bilaterally Gastrointestinal: Yes: WNL, Normal Bowel Sounds Genitourinary: Yes: WNL Musculoskeletal: Yes: WNL Extremities: Yes: WNL Edema: No Integumentary: Yes: WNL Neurological: Yes: WNL, Alert, Oriented ...Motor Strength: WNL Psychiatric: Yes: WNL Labs: CBC, BMP 07/12/16 05:42 07/12/16 05:42 INR, PTT INR 1.42 (0.82-1.09) H 07/12/16 05:42 Assessment/Plan - Problems (1) Acute CVA (cerebrovascular accident) Assessment/Plan: weakness on right side; no acute pathology on head CT. F/u with neurologist. Code(s): I63.9 - CEREBRAL INFARCTION, UNSPECIFIED (2) Acute on chronic systolic and diastolic heart failure, NYHA class 4 Assessment/Plan: digoxin level in am; keep 0.5-1.0. Start hydrlazine; continue Imdur. In the past, pt has had episodes of hyperkalemia. Continue Entresto (which has valsartan, an ARB); follow BUN/Cr and K+ closely. She has not been able to be on spironolactone due to hyperkalemia. Daily weights; Is and Os. Code(s): I50.43 - ACUTE ON CHRONIC COMBINED SYSTOLIC AND DIASTOLIC HRT FAIL (3) Coronary artery disease Code(s): I25.10 - ATHSCL HEART DISEASE OF [place] CORONARY ARTERY W/O ANG PCTRS Qualifiers: Coronary Disease-Associated Artery/Lesion type: [place] artery [place] vs. transplanted heart: [place] heart Associated angina: without angina Qualified Code(s): I25.10 - Atherosclerotic heart disease of [place] coronary artery without angina pectoris (4) Elevated troponin Assessment/Plan: 1st level 0.10, with CK/MB relative index >5 (the latter may occur with [place], but also with CVA). F/u TNI, EKGs, telemetry. Code(s): R74.8 - ABNORMAL LEVELS OF OTHER SERUM ENZYMES (5) Diabetes mellitus Code(s): E11.9 - TYPE 2 DIABETES MELLITUS WITHOUT COMPLICATIONS Qualifiers: Diabetes mellitus type: type 2 Diabetes mellitus complication status: with other specified complication (6) Atrial fibrillation and flutter Assessment/Plan: On carvedilol, digoxin. On apixaban. Code(s): I48.91 - UNSPECIFIED ATRIAL FIBRILLATION I48.92 - UNSPECIFIED ATRIAL FLUTTER (7) Anxiety and depression Code(s): F41.8 - OTHER SPECIFIED ANXIETY DISORDERS (8) Hypertension Assessment/Plan: f/u BP serially; started on hydralazine (for HTN and systolic CHF); on Entreto ( which has valsartan), Imdur, carvedilol. Code(s): I10 - ESSENTIAL (PRIMARY) HYPERTENSION Qualifiers: Hypertension type: essential hypertension Qualified Code(s): I10 - Essential (primary) hypertension (9) Seizure disorder Code(s): G40.909 - EPILEPSY, UNSP, NOT INTRACTABLE, WITHOUT STATUS EPILEPTICUS (10) Hyperlipidemia Assessment/Plan: increase atorvastatin; keep LDL < 70 mg/dL. Code(s): E78.5 - HYPERLIPIDEMIA, UNSPECIFIED (11) Elevated CA-125 Assessment/Plan: elevated 04/2015; usually associated with ovarian CA. F/u PMHx; f/u with oncologist. Code(s): R97.1 - ELEVATED CANCER ANTIGEN 125 [CA 125]
--- NOTE | 2016-07-12 11:08 | PN ---
Progress Note (short form) - Note Progress Note: Neurology follow up note Consult Specialty:: Neurology Reason for Consultation:: worsening right sided weakness, changes in speech - History of Present Illness History of Present Illness: 70 year old woman, history of previous stroke with residual dysarthria and right hemiparesis, epilepsy?, multiple cardiac issues status post pacer, currently on eliquis, presents with worsening right hemiparesis and speech difficulties. The patient denies head injury, recent seizure, or other neurological complaints. CT head shows no acute findings On exam, mild right hemiparesis noted. Patient is stuttering and states she has noted stuttering on and off, no dysarthria noted on exam. She is unable to provide further history on her history of epilepsy in the past but denies any recent events. 05/14 Patient seen and examined at bedside. 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 due to microlithiasis, subclinical vs. perforated diverticulum. elev amylase lipase) Renal/: Yes: Renal Inusuff Psych: Yes: Anxiety Endocrine: Yes: Diabetes Mellitus - Past Surgical History Past Surgical History: Yes: AICD, Colonoscopy (04/2014 severe diverticulosis and adhesions w/sigmoid inflamm, int hemorr, hyperplastic polyps icv, melanosis coli ), Hysterectomy, Stent - Alcohol/Substance Use Hx Alcohol Use: No - Smoking History Smoking history: Former smoker Have you smoked in the past 12 months: No Aproximately how many cigarettes per day: 0 If you are a former smoker, when did you quit?: 1981 - Social History Usual Living Arrangement: Alone ADL: Independent Occupation: No checmical exposure in workplace. History of Recent Travel: No Home Medications - Allergies Allergies/Adverse Reactions: Allergies Allergy/AdvReac Type Severity Reaction Status Date / Time No Known Drug Allergies Allergy Verified 07/11/16 07:29 - Home Medications Home Medications: Ambulatory Orders Apixaban [Eliquis] 2.5 mg PO BID 04/18/16 Bupropion HCl [Wellbutrin -] 150 mg PO DAILY 04/18/16 Carvedilol [Coreg] 12.5 mg PO BID 04/18/16 Digoxin [Lanoxin -] 0.125 mg PO BID 04/18/16 Glipizide [Glipizide Xl] 5 mg PO BID 04/18/16 Hydralazine HCl 150 mg PO BID 04/18/16 Isosorbide Mononitrate 30 mg PO DAILY 04/18/16 Lamotrigine 100 mg PO BID 04/18/16 Ranitidine [Zantac -] 150 mg PO DAILY 04/18/16 Lipase/Protease/Amylase [Timothy Garnder 36,000 Units Capsule] 1 each PO DAILY Rifaximin [Xifaxan] 550 mg PO DAILY 07/11/16 Family Disease History - Family Disease History Family Disease History: CA: Sister (Breast), Other: Son (CVA age 40) Review of Systems - Review of Systems Constitutional: reports: No Symptoms Eyes: reports: No Symptoms HENT: reports: No Symptoms Neck: reports: No Symptoms Cardiovascular: reports: No Symptoms Respiratory: reports: No Symptoms Gastrointestinal: reports: No Symptoms Neurological: reports: Change in Speech Physical Exam Constitutional: Yes: No Distress Eyes: Yes: Conjunctiva Clear, EOM Intact HENT: Yes: Atraumatic, Normocephalic Cardiovascular: Yes: S1, S2 Respiratory: Yes: Regular Neurological: Yes: Alert, Oriented, Cran Nerves II-XII Intact ...Motor Strength: within normal limits Assessment/Plan 70 year old woman, history of previous stroke with residual dysarthria and right hemiparesis, epilepsy?, multiple cardiac issues status post pacer, currently on eliquis, presents with worsening right hemiparesis and speech difficulties. The patient denies head injury, recent seizure, or other neurological complaints. CT head shows no acute findings Examination non focal, reports improvement in symptoms Worsening right hemiparesis- now resolved TIA versus stroke, stuttering unlikely neurologic CT head shows no acute findings Recommend MRI- however patient has a pacemaker Carotid doppler pending Echocardiogram pending, cardiology following Continue eliquis PT/OT If carotid doppler shows no significant findings, ok from neuro perspective for patient to follow up as outpatient Please call if further questions
--- NOTE | 2016-07-12 11:31 | EKG ---
Test Reason : Blood Pressure : / mmHG Vent. Rate : 064 BPM Atrial Rate : 256 BPM P-R Int : 000 ms QRS Dur : 088 ms QT Int : 350 ms P-R-T Axes : 099 -12 247 degrees QTc Int : 361 ms ATRIAL FLUTTER WITH 4:1 A-V CONDUCTION POSSIBLE ANTERIOR INFARCT (CITED ON OR BEFORE 18-APR-2016) ABNORMAL ECG WHEN COMPARED WITH ECG OF 11-JUL-2016 07:47, PREVIOUS ECG HAS UNDETERMINED RHYTHM, NEEDS REVIEW T WAVE INVERSION NOW EVIDENT IN INFERIOR LEADS T WAVE INVERSION NOW EVIDENT IN ANTERIOR LEADS QT HAS SHORTENED Confirmed by MARIANA KEATING, IGNACIO ([id number]) on 07/12/2016 11:30:56 AM Referred By: Bonny ALLEN Confirmed By:IGNACIO PEÑA MD
[2016-07-12] MEDS: EZETIMIBE 10 MG TABLET (FP) PO SCH (14:38)
[2016-07-12 15:04] LABS: TROPONIN I 0.08 ng/ml (0.00-0.05)
--- NOTE | 2016-07-12 16:04 | PN ---
Progress Note (short form) - Note Progress Note: Called regarding carotid doppler results- concerning for arrhythmia. Patient has history of pacer and currently on eliquis for atrial fibrillation. Recommend cardiology follow up for findings. Discussed findings with nursing staff, nursing staff will attempt to contact cardiology for follow up.
[2016-07-12] MEDS ORDERED: PT OWN MED DRAWER 7, Y5N ONE (20:51)
[2016-07-12] MEDS: ATORVASTATIN CA 40 MG TABLET (FP) PO SCH (21:04)
[2016-07-12] MEDS: CARVEDILOL 25 MG TABLET (FP) PO SCH (21:10)
[2016-07-13] MEDS ORDERED: PT OWN MED DRAWER 7, Y5N ONE ×3 (05:22→21:37)
[2016-07-13] MEDS: hydrALAZINE HCL 10 MG TABLET PO SCH ×3 (06:06→22:10)
[2016-07-13] MEDS: INSULIN SLIDING SCALE (NOVOLOG) 1 VIAL SQ SCH ×4 (06:07→21:35)
[2016-07-13] MEDS: glipiZIDE-XL 5 MG TAB.ER.24 PO SCH (08:38)
[2016-07-13] MEDS: CARVEDILOL 25 MG TABLET (FP) PO SCH (11:00)
[2016-07-13] MEDS: SACUBITRIL/VALSARTAN 49 MG-51 MG TABLET PO SCH ×2 (11:01→22:09)
[2016-07-13] MEDS: APIXABAN 2.5 MG TABLET PO SCH ×2 (11:01→22:09)
[2016-07-13] MEDS: ISOSORBIDE MONONITRATE 30 MG TAB.SR.24H (FP) PO SCH (11:02)
[2016-07-13] MEDS: DIGOXIN 0.125 MG TABLET (FP) PO SCH (11:02)
[2016-07-13] MEDS: lamoTRIgine 100 MG TABLET (FP) PO SCH ×2 (11:02→23:27)
[2016-07-13] MEDS: RANITIDINE HCL 150 MG TABLET (FP) PO SCH ×2 (11:06→22:09)
[2016-07-13] MEDS: EZETIMIBE 10 MG TABLET (FP) PO SCH (11:07)
--- NOTE | 2016-07-13 15:17 | PN ---
Progress Note, Physician Chief Complaint: Pt A&Ox3; able to move right arm and leg, though feels weak on that side, especially in the leg. History of Present Illness: 70-year-old black female with a past medical history of an "old stroke" with slurred speech and right-sided weakness, with ?resolution except for residual seizure disorder in 2009; severe LV dysfunction-->ICD; CAD-->PCI; HTN; hyperlipidemia; moderate aortic stenosis; diverticulitis. She says that her symptoms did in oral, but never resolved completely Patient states that 3 PM yesterday she started having worsening of her speech, and some increasing right arm or right leg weakness, and difficulty walking She states that the symptoms were initially off and on, but at 10 PM they became constant, and unchanged through the night, she awakened again with the symptoms this morning She denies any fall or head injury, she denies any seizure, she denies any recent intercurrent illness She takes Eliquis for a blood thinner, and says she has been compliant to all medications. Remainder of the review of systems preliminary review negative - Current Medication List Current Medications: Active Medications Acetaminophen (Tylenol -) 650 mg PO Q6H PRN PRN Reason: FEVER OR PAIN Last Admin: 07/11/16 21:56 Dose: 650 mg Apixaban (Eliquis -) 2.5 mg PO BID [facility] Last Admin: 07/13/16 11:01 Dose: 2.5 mg Atorvastatin Calcium (Lipitor -) 40 mg PO HS [facility] Last Admin: 07/12/16 21:04 Dose: 40 mg Bupropion HCl (Wellbutrin Xl -) 150 mg PO DAILY [facility] Last Admin: 07/13/16 11:06 Dose: 150 mg Carvedilol (Coreg -) 25 mg PO BID [facility] Last Admin: 07/13/16 11:00 Dose: 25 mg Digoxin (Lanoxin -) 0.125 mg PO DAILY [facility] Last Admin: 07/13/16 11:02 Dose: 0.125 mg Ezetimibe (Zetia -) 10 mg PO DAILY [facility] Last Admin: 07/13/16 11:07 Dose: 10 mg Glipizide (Glucotrol Xl -) 5 mg PO DAILY@0700 [facility] Last Admin: 07/13/16 08:38 Dose: 5 mg Hydralazine HCl (Apresoline -) 10 mg PO TID [facility] Last Admin: 07/13/16 14:45 Dose: Not Given Insulin Aspart (Novolog Vial Sliding Scale -) 1 vial SQ ACHS [facility] PRN Reason: Protocol Last Admin: 07/13/16 11:38 Dose: Not Given Isosorbide Mononitrate (Imdur -) 30 mg PO DAILY [facility] Last Admin: 07/13/16 11:02 Dose: 30 mg Lamotrigine (Lamictal -) 100 mg PO DAILY [facility] Last Admin: 07/13/16 11:02 Dose: 100 mg Ranitidine HCl (Zantac -) 150 mg PO BID [facility] Last Admin: 07/13/16 11:06 Dose: 150 mg - Objective Vital Signs: Vital Signs Temperature 97.7 F 07/13/16 10:00 Pulse Rate 65 07/13/16 11:02 Respiratory Rate 20 07/13/16 10:00 Blood Pressure 115/73 07/13/16 10:00 O2 Sat by Pulse Oximetry (%) 99 07/12/16 21:00 Constitutional: Yes: No Distress Eyes: Yes: WNL HENT: Yes: WNL Neck: Yes: WNL Cardiovascular: Yes: Pulse Irregular, S1 (varies in intensity), S2 Respiratory: Yes: WNL Gastrointestinal: Yes: Soft ...Rectal Exam: Yes: Deferred Genitourinary: No: Anuria Breast(s): Yes: WNL Musculoskeletal: Yes: Muscle Weakness Edema: No Peripheral Pulses WNL: No Peripheral Pulses: Left Doralis Pedis: 1+, Right Dorsalis Pedis: 1+ Integumentary: Yes: WNL Neurological: Yes: Alert, Oriented, Weakness Psychiatric: Yes: WNL Labs: CBC, BMP 07/12/16 05:42 07/12/16 05:42 INR, PTT INR 1.42 (0.82-1.09) H 07/12/16 05:42 Problem List - Problems (1) Acute CVA (cerebrovascular accident) Assessment/Plan: weakness on right side; no acute pathology on head CT. Carotid artery US: no plaque or stenoses. ICD interrogation: AF with controlled VR; no NSVT since 02/2015. F/u with neurologist. From a cardiac standpoint, pt may be followed as an outpatient. Code(s): I63.9 - CEREBRAL INFARCTION, UNSPECIFIED (2) Acute on chronic systolic and diastolic heart failure, NYHA class 4 Assessment/Plan: digoxin level 1.02. Decrease carvedilol to 12.5 mg bid (hypotension earlier today; AF with controlled VR, at times with slow VR, on ICD interrogation). Started hydrlazine; continue Imdur. In the past, pt has had episodes of hyperkalemia. Continue Entresto (which has valsartan, an ARB); follow BUN/Cr and K+ closely. She has not been able to be on spironolactone due to hyperkalemia.. Daily weights; Is and Os. Code(s): I50.43 - ACUTE ON CHRONIC COMBINED SYSTOLIC AND DIASTOLIC HRT FAIL (3) Coronary artery disease Code(s): I25.10 - ATHSCL HEART DISEASE OF [place] CORONARY ARTERY W/O ANG PCTRS Qualifiers: Coronary Disease-Associated Artery/Lesion type: [place] artery [place] vs. transplanted heart: [place] heart Associated angina: without angina Qualified Code(s): I25.10 - Atherosclerotic heart disease of [place] coronary artery without angina pectoris (4) Elevated troponin Assessment/Plan: 1st level 0.10; second 0.08, with CK/MB relative index >5 (the latter may occur with CT, but also with CVA). Code(s): R74.8 - ABNORMAL LEVELS OF OTHER SERUM ENZYMES (5) Diabetes mellitus Code(s): E11.9 - TYPE 2 DIABETES MELLITUS WITHOUT COMPLICATIONS Qualifiers: Diabetes mellitus type: type 2 Diabetes mellitus complication status: with other specified complication (6) Atrial fibrillation and flutter Assessment/Plan: On carvedilol, digoxin. On apixaban. ICD interrogated: AF with controlled VR. Code(s): I48.91 - UNSPECIFIED ATRIAL FIBRILLATION I48.92 - UNSPECIFIED ATRIAL FLUTTER (7) Anxiety and depression Code(s): F41.8 - OTHER SPECIFIED ANXIETY DISORDERS (8) Hypertension Assessment/Plan: f/u BP serially; started on hydralazine (for HTN and systolic CHF); on Entreto ( which has valsartan), Imdur, carvedilol (the latter was decreased in strength due to period of hypotension after lying in bed for prolonged period of time). Code(s): I10 - ESSENTIAL (PRIMARY) HYPERTENSION Qualifiers: Hypertension type: essential hypertension Qualified Code(s): I10 - Essential (primary) hypertension (9) Seizure disorder Code(s): G40.909 - EPILEPSY, UNSP, NOT INTRACTABLE, WITHOUT STATUS EPILEPTICUS (10) Hyperlipidemia Assessment/Plan: increase atorvastatin; keep LDL < 70 mg/dL. Code(s): E78.5 - HYPERLIPIDEMIA, UNSPECIFIED (11) Elevated CA-125 Assessment/Plan: elevated 04/2015; usually associated with ovarian CA. F/u PMHx; f/u with oncologist. Code(s): R97.1 - ELEVATED CANCER ANTIGEN 125 [CA 125]
--- NOTE | 2016-07-13 21:36 | PN ---
Progress Note, Physician Chief Complaint: AWAKE IN SOLARIUM THIS AM NO ACUTE CHANGES - Current Medication List Current Medications: Active Medications Acetaminophen (Tylenol -) 650 mg PO Q6H PRN PRN Reason: FEVER OR PAIN Last Admin: 07/11/16 21:56 Dose: 650 mg Apixaban (Eliquis -) 2.5 mg PO BID [facility] Last Admin: 07/13/16 11:01 Dose: 2.5 mg Atorvastatin Calcium (Lipitor -) 40 mg PO HS [facility] Last Admin: 07/12/16 21:04 Dose: 40 mg Bupropion HCl (Wellbutrin Xl -) 150 mg PO DAILY [facility] Last Admin: 07/13/16 11:06 Dose: 150 mg Carvedilol (Coreg -) 12.5 mg PO BID [facility] Digoxin (Lanoxin -) 0.125 mg PO DAILY [facility] Last Admin: 07/13/16 11:02 Dose: 0.125 mg Ezetimibe (Zetia -) 10 mg PO DAILY [facility] Last Admin: 07/13/16 11:07 Dose: 10 mg Glipizide (Glucotrol Xl -) 5 mg PO DAILY@0700 [facility] Last Admin: 07/13/16 08:38 Dose: 5 mg Hydralazine HCl (Apresoline -) 10 mg PO TID [facility] Last Admin: 07/13/16 14:45 Dose: Not Given Insulin Aspart (Novolog Vial Sliding Scale -) 1 vial SQ ACHS [facility] PRN Reason: Protocol Last Admin: 07/13/16 16:50 Dose: Not Given Isosorbide Mononitrate (Imdur -) 30 mg PO DAILY [facility] Last Admin: 07/13/16 11:02 Dose: 30 mg Lamotrigine (Lamictal -) 100 mg PO DAILY [facility] Last Admin: 07/13/16 11:02 Dose: 100 mg Ranitidine HCl (Zantac -) 150 mg PO BID [facility] Last Admin: 07/13/16 11:06 Dose: 150 mg - Objective Vital Signs: Vital Signs Temperature 98.1 F 07/13/16 18:27 Pulse Rate 80 07/13/16 18:27 Respiratory Rate 18 07/13/16 18:27 Blood Pressure 105/82 07/13/16 18:27 O2 Sat by Pulse Oximetry (%) 99 07/13/16 09:00 Constitutional: Yes: Mild Distress Eyes: Yes: WNL HENT: Yes: WNL Neck: Yes: WNL Cardiovascular: Yes: Pulse Irregular Respiratory: Yes: WNL Gastrointestinal: Yes: WNL Genitourinary: Yes: WNL Musculoskeletal: Yes: WNL Extremities: Yes: WNL Edema: No Integumentary: Yes: WNL Wound/Incision: Yes: Clean/Dry Neurological: Yes: Confusion, Pre-Existing Deficit ...Motor Strength: LLE, RLE Psychiatric: Yes: Agitated Labs: CBC, BMP 07/12/16 05:42 07/12/16 05:42 INR, PTT INR 1.42 (0.82-1.09) H 07/12/16 05:42 Problem List - Problems (1) Acute CVA (cerebrovascular accident) Code(s): I63.9 - CEREBRAL INFARCTION, UNSPECIFIED (2) Acute on chronic systolic and diastolic heart failure, NYHA class 4 Code(s): I50.43 - ACUTE ON CHRONIC COMBINED SYSTOLIC AND DIASTOLIC HRT FAIL (3) Coronary artery disease Code(s): I25.10 - ATHSCL HEART DISEASE OF [place] CORONARY ARTERY W/O ANG PCTRS Qualifiers: Coronary Disease-Associated Artery/Lesion type: [place] artery [place] vs. transplanted heart: [place] heart Associated angina: without angina Qualified Code(s): I25.10 - Atherosclerotic heart disease of [place] coronary artery without angina pectoris (4) Anxiety and depression Code(s): F41.8 - OTHER SPECIFIED ANXIETY DISORDERS (5) Atrial fibrillation Code(s): I48.91 - UNSPECIFIED ATRIAL FIBRILLATION Qualifiers: Atrial fibrillation type: chronic Qualified Code(s): I48.2 - Chronic atrial fibrillation (6) History of CVA (cerebrovascular accident) Code(s): Z86.73 - PRSNL HX OF TIA (TIA), AND CEREB INFRC W/O RESID DEFICITS (7) Hypertension Code(s): I10 - ESSENTIAL (PRIMARY) HYPERTENSION Qualifiers: Hypertension type: essential hypertension Qualified Code(s): I10 - Essential (primary) hypertension (8) Seizure disorder Code(s): G40.909 - EPILEPSY, UNSP, NOT INTRACTABLE, WITHOUT STATUS EPILEPTICUS (9) Dementia Code(s): F03.90 - UNSPECIFIED DEMENTIA WITHOUT BEHAVIORAL DISTURBANCE Assessment/Plan ACUTE CVA WITH HISTORY OF OLD CVA DEMENTIA EARLY WITH CONFUSION LIKELY INFARCT TYPE NEURO CHECKS AND FALL PRECAUTIONS CARDIOLOGY AND NEURO WORKUP IN PROGRESS LIPID PANEL REVIEWED ON STATIN THERAPY TIGHT GLYCEMIC CONTROL OOB TO CHAIR WITH PT CONSIDER SNF
[2016-07-13] MEDS: ATORVASTATIN CA 40 MG TABLET (FP) PO SCH (22:09)
[2016-07-13] MEDS: CARVEDILOL 12.5 MG TABLET (FP) PO SCH (22:10)
[2016-07-14] MEDS: hydrALAZINE HCL 10 MG TABLET PO SCH ×2 (06:03→15:00)
[2016-07-14] MEDS: INSULIN SLIDING SCALE (NOVOLOG) 1 VIAL SQ SCH ×3 (06:09→18:04)
[2016-07-14] MEDS ORDERED: PT OWN MED DRAWER 7, Y5N ONE (09:26)
[2016-07-14] MEDS ORDERED: CEFTRIAXONE 100 ML IVPB SCH (10:00)
[2016-07-14] MEDS: APIXABAN 2.5 MG TABLET PO SCH (10:11)
[2016-07-14] MEDS: glipiZIDE-XL 5 MG TAB.ER.24 PO SCH (10:11)
[2016-07-14] MEDS: SACUBITRIL/VALSARTAN 49 MG-51 MG TABLET PO SCH (10:11)
[2016-07-14] MEDS: CARVEDILOL 12.5 MG TABLET (FP) PO SCH (10:11)
[2016-07-14] MEDS: lamoTRIgine 100 MG TABLET (FP) PO SCH (10:12)
[2016-07-14] MEDS: DIGOXIN 0.125 MG TABLET (FP) PO SCH (10:12)
[2016-07-14] MEDS: ISOSORBIDE MONONITRATE 30 MG TAB.SR.24H (FP) PO SCH (10:12)
[2016-07-14] MEDS: RANITIDINE HCL 150 MG TABLET (FP) PO SCH (10:13)
[2016-07-14] MEDS: EZETIMIBE 10 MG TABLET (FP) PO SCH (10:13)
--- NOTE | 2016-07-14 10:39 | DS ---
Physical Examination Vital Signs: Vital Signs Temperature 97.8 F 07/14/16 06:00 Pulse Rate 119 H 07/14/16 10:12 Respiratory Rate 20 07/14/16 06:00 Blood Pressure 122/84 07/14/16 06:00 O2 Sat by Pulse Oximetry (%) 99 07/13/16 21:00 Constitutional: Yes: Well Nourished Eyes: Yes: WNL HENT: Yes: WNL Neck: Yes: WNL Cardiovascular: Yes: Pulse Irregular Respiratory: Yes: WNL Gastrointestinal: Yes: WNL Musculoskeletal: Yes: WNL Extremities: Yes: WNL Edema: No Peripheral Pulses WNL: Yes Integumentary: Yes: WNL Wound/Incision: Yes: Clean/Dry Neurological: Yes: WNL ...Motor Strength: WNL Psychiatric: Yes: WNL Labs: CBC, BMP 07/12/16 05:42 07/12/16 05:42 Discharge Summary Reason For Visit: ELEVATED TRPONIN,ABN EKD,CVA Current Active Problems Abdominal pain (Acute) Acute CVA (cerebrovascular accident) (Acute) Acute on chronic systolic and diastolic heart failure, NYHA class 4 (Acute) Atypical chest pain (Acute) Coronary artery disease (Acute) Dementia (Acute) Elevated CA-125 (Acute) Elevated lactic acid level (Acute) Elevated lipase (Acute) Elevated troponin (Acute) Hyperkalemia (Acute) Hyperlipidemia (Acute) Shortness of breath (Acute) Tachyarrhythmia (Acute) Arrhythmia (Chronic) Cardiomegaly (Chronic) Diabetes mellitus (Chronic) Procedures: Principal: ct head Other Procedures: labs Hospital Course: admitted r/o acute cva, htn, afib, on anticoagulation, lipidemia increased with lipitor and now zetia for treatment, worked up by neurology and cardiology will f/u as outpatient, and home care referral Condition: Improved - Instructions Diet, Activity, Other Instructions: low sodium/ada Referrals: Donna Guerin MD [Primary Care Provider] - Disposition: VNS/HOME HEALTH CARE - Home Medications Comprehensive Discharge Medication List: Ambulatory Orders Apixaban [Eliquis] 2.5 mg PO BID 04/18/16 Bupropion HCl [Wellbutrin -] 150 mg PO DAILY 04/18/16 Carvedilol [Coreg] 12.5 mg PO BID 04/18/16 Digoxin [Lanoxin -] 0.125 mg PO BID 04/18/16 Glipizide [Glipizide Xl] 5 mg PO BID 04/18/16 Hydralazine HCl 150 mg PO BID 04/18/16 Isosorbide Mononitrate 30 mg PO DAILY 04/18/16 Lamotrigine 100 mg PO BID 04/18/16 Ranitidine [Zantac -] 150 mg PO DAILY 04/18/16 Lipase/Protease/Amylase [Creon Dr 36,000 Units Capsule] 1 each PO DAILY Rifaximin [Xifaxan -] 550 mg PO DAILY 07/11/16 Acetaminophen [Tylenol .Regular Strength -] 650 mg PO Q6H PRN #0 tablet Apixaban [Eliquis -] 2.5 mg PO BID tablet 07/14/16 Atorvastatin Ca [Lipitor] 40 mg PO HS tablet 07/14/16 Carvedilol [Coreg -] 12.5 mg PO BID tablet 07/14/16 Digoxin [Lanoxin -] 0.125 mg PO DAILY tablet 07/14/16 Ezetimibe [Zetia -] 10 mg PO DAILY #30 tablet 07/14/16 Hydralazine HCl [Apresoline -] 10 mg PO TID tablet 07/14/16 Lamotrigine [LaMICtal -] 100 mg PO BID tablet 07/14/16 Ranitidine [Zantac -] 150 mg PO BID tablet 07/14/16 Sacubitril/Valsartan [Entresto 49 mg-51 mg Tablet] 1 tab PO BID #30 tablet 07/14
--- NOTE | 2016-07-14 12:50 | PN ---
Progress Note, [employer] - Note Progress Note: Pt seen at bedside for follow up to swallow eval with a recommendation for soft solids and thin liquids. Chart review indicates pt is consuming about 75% of meals. No reported sign or symptoms of aspiration at this time. Pt reports that she is feeling okay. Recommendations: Continue soft diet and thin liquids as tolerated. Results given to wire charger & pcp via chart
[2016-07-14 15:03] VITALS: BP 109/76; PULSE 88; TEMP 98
== END 2016-07-14 19:00 | disposition home health service (06) | DRG 64 ==
LOC: JER 07:23 → JERBED 09:36 → J4S 15:08
PROVIDERS: ADMIT Family Medicine; ATTEND Family Medicine
DX: I63.9 Cerebral infarction, unspecified (principal); I50.43 Acute on chronic combined systolic (congestive) and diastolic (congestive) heart failure; I69.351 Hemiplegia and hemiparesis following cerebral infarction affecting right dominant side; I48.92 Unspecified atrial flutter; E11.9 Type 2 diabetes mellitus without complications; E78.5 Hyperlipidemia, unspecified; E87.5 Hyperkalemia; I48.91 Unspecified atrial fibrillation; F32.9 Major depressive disorder, single episode, unspecified; F41.9 Anxiety disorder, unspecified; Z87.891 Personal history of nicotine dependence; I25.10 Atherosclerotic heart disease of native coronary artery without angina pectoris; Z98.61 Coronary angioplasty status; R29.709 NIHSS score 9; G40.909 Epilepsy, unspecified, not intractable, without status epilepticus
CPT/HCPCS: 36415; 70450-TC; 71010-TC; 80053; 80162; 81003; 81015; 82465; 82550; 82553; 83036; 83718; 83721; 84478; 84484; 85025; 85027; 85610; 86850; 86900; 86901; 87086; 87186; 93005; 93010; 93306-TC; 93880-TC; 97116-GP; 97162-PG; 99285-25

== ENCOUNTER 2016-11-17 11:45 | Inpatient (IN) | payer OTHER ==
[2016-11-17 11:53] VITALS: BMI 24.3
--- NOTE | 2016-11-17 12:10 | PDOC ---
Attending Attestation - Resident Resident Name: Chase Su - ED Attending Attestation I have performed the following: I have examined & evaluated the patient, The case was reviewed & discussed with the resident, I agree w/resident's findings & plan, Exceptions are as noted - HPI HPI: 71 yo F history DM, HTN, CVA, seizures presents with B/L lower extremity weakness, tremors in the hands, and slurred speech. She states the symptoms started around 1am, but she did not seek evaluation until now, as they worsened when she woke up this morning. She has had similar symptoms in the past. She went to Dr. Marlow's office this morning, who sent her to ED for evaluation. - Physicial Exam PE: GENERAL: Awake, alert, and fully oriented, in no acute distress HEAD: No signs of trauma EYES: PERRLA, EOMI, sclera anicteric, conjunctiva clear ENT: Auricles normal inspection, hearing grossly normal, nares patent, oropharynx clear without exudates. Moist mucosa NECK: Normal ROM, supple, no lymphadenopathy, JVD, or masses LUNGS: Breath sounds equal, clear to auscultation bilaterally. No wheezes, and no crackles HEART: Regular rate and rhythm, normal S1 and S2, no murmurs, rubs or gallops ABDOMEN: Soft, nontender, normoactive bowel sounds. No guarding, no rebound. No masses EXTREMITIES: +Coarse tremors to the hands B/L. Normal range of motion, no edema. No clubbing or cyanosis. No cords, erythema, or tenderness NEUROLOGICAL: Cranial nerves II through XII grossly intact. Speech is stuttering , slightly halting. Dec band master strength in both hands, R>>L. Legs with B/L weakness, making some effort against gravity. Sensation intact throughout. See NIHSS for additional detail. SKIN: Warm, Dry, normal turgor, no rashes or lesions noted. - Medical Decision Making Case d/w Dr. Marlow. Patient is out of the window for tPA, as her symptoms started at 1am. However, on exam, the symptoms are not a typical stroke syndrome - she has B/L leg weakness, R hand weakness > L. She c/o dec sensation to feet, but sensation to pinprick is intact. She has seen Dr. Stringer in the past, however, he is unavailable. Will consult Dr. Rincon's group as per Dr. Marlow. NIH Stroke Scale - Last Known Well Date/Time & Onset Date Last Known Well: 11/17/16 Time Last Known Well: 01:00 - Initial Evaluation Level of consciousness: Alert Ask patient the month and their age: Answers both correctly Ask patient to open & close eyes; make fist and let go: Obeys both correctly Best gaze (horizontal eye movement): Normal Visual field testing: No visual field loss Facial paresis (Show teeth/raise eyebrows/close eyes tight): Normal symmetrical movement Motor Function: Left Arm: Normal Motor Function: Right Arm: Normal (extends arm 90 (or 45) degrees for 10 seconds without drift Motor Function: Left Leg: Some effort against gravity Motor Function: Right Leg: Some effort against gravity Limb Ataxia: No ataxia Sensory(Use pinprick test arms,legs,trunk,face/side to side): Mild to moderate decrease in sensation Best language (Describe picture, name items, read sentences): Mild to moderate aphasia Dysarthria (read several words): Mild to moderate slurring of words Extinction and Inattention: No abnormality - Total Score NIH Stroke Scale Score: 7
[2016-11-17 13:04] LABS: MCH 29.7 pg (25.7-33.7); MCHC 32.3 g/dl (32.0-36.0); MEAN CELL VOLUME 91.7 fl (80-96); MEAN PLT VOLUME 8.8 fl (7.5-11.1); PLATELET COUNT 210 K/MM3 (134-434); RDW 13.8 % (11.6-15.6); WHITE BLOOD COUNT 4.9 K/mm3 (4.0-10.0)
[2016-11-17 13:42] LABS: ALBUMIN 3.5 g/dl (3.4-5.0); ANION GAP 9 (8-16); BILIRUBIN,TOTAL 0.9 mg/dL (0.2-1.0); CALCIUM 8.8 mg/dL (8.5-10.1); CO2 29 mmol/L (21-32); CREATININE 1.4 mg/dL (0.55-1.02); GLUCOSE,RANDOM 105 mg/dL (74-106); SGPT/ALT 30 U/L (12-78); TOT PROT 7.8 g/dl (6.4-8.2)
[2016-11-17 13:53] LABS: ALK PHOS 121 U/L (45-117)
[2016-11-17 13:54] LABS: TROPONIN I 0.03 ng/ml (0.00-0.05)
[2016-11-17 13:58] LABS: DIGOXIN LEVEL 0.1599 ng/ml (0.8-2.0)
[2016-11-17 14:00] LABS: SGOT/AST 64 U/L (15-37)
--- NOTE | 2016-11-17 14:29 | PDOC ---
History of Present Illness - General Chief Complaint: CVA/TIA Stated Complaint: CVI/TIA Time Seen by Provider: 11/17/16 11:56 - History of Present Illness Initial Comments: 11/17/16 15:08 Ms. Mcleod is a 71 year old female with a significant past medical history of DM, HTN, stroke, seizure, who presents to the emergency department after she began having weakness ELSIE of legs, slurring of speach, and shaking of her R arm this morning around 1am. She decided not to present last night as it was not very bad at the time, but came in as it was much worse upon waking up this morning. The patient denies chest pain, shortness of breath, headache and dizziness. Denies fever, chills, nausea, vomit, diarrhea and constipation. Denies dysuria, frequency, urgency and hematuria. Allergies: NKDA Past surgical history:hysterectomy, left arm break Social history: prior smoking history of approx. 30 pack years PMD - Ele Past History - Past Medical History Allergies/Adverse Reactions: Allergies Allergy/AdvReac Type Severity Reaction Status Date / Time No Known Drug Allergies Allergy Verified 11/17/16 11:54 Home Medications: Ambulatory Orders Apixaban [Eliquis] 2.5 mg PO BID 04/18/16 Digoxin [Lanoxin -] 0.125 mg PO DAILY 04/18/16 Glipizide [Glipizide Xl] 5 mg PO DAILY 04/18/16 Lamotrigine 100 mg PO BID 04/18/16 Carvedilol [Coreg -] 12.5 mg PO BID tablet 07/14/16 Bupropion HCl [Wellbutrin Sr] 150 mg PO DAILY 11/17/16 Donepezil HCl [Aricept] 10 mg PO DAILY 11/17/16 Memantine HCl [Namenda -] 10 mg PO DAILY 11/17/16 Pramipexole Di-HCl [Mirapex] 0.25 mg PO DAILY 11/17/16 Anemia: No Asthma: No Cancer: No Cardiac Disorders: Yes (HEART MURMUR, AFIB, AICD) CVA: Yes (TIA 2009) COPD: No CHF: No Dementia: No Diabetes: Yes (NIDDM) GI Disorders: (DIVERTICULAR DISEASE) Disorders: No HTN: Yes Hypercholesterolemia: Yes Liver Disease: No Suicide Attempt (Hx): No Seizures: Yes (2009) Thyroid Disease: No - Surgical History Abdominal Surgery: No Appendectomy: No Cardiac Surgery: Yes (cardiac stent/AICD) Cholecystectomy: No Lung Surgery: No Neurologic Surgery: No Orthopedic Surgery: Yes (CARPAL TUNNEL RELEASE, RIGHT ARM PINNING W/ RODS) - Immunization History Immunization Up to Date: Yes - Psycho/Social/Smoking Cessation Hx Anxiety: No Suicidal Ideation: No Smoking Status: Yes Smoking History: Former smoker Have you smoked in the past 12 months: No Number of Cigarettes Smoked Daily: 0 If you are a former smoker, when did you quit?: 1981 Information on smoking cessation initiated: No Hx Alcohol Use: No Drug/Substance Use Hx: No Substance Use Type: None Hx Substance Use Treatment: No Review of Systems - Review of Systems Comments:: 11/17/16 15:10 GENERAL/CONSTITUTIONAL: +difficulty speaking (slurring of speech with stuttering ). No fever or chills. HEAD, EYES, EARS, NOSE AND THROAT: No change in vision. No ear pain or discharge. No sore throat. CARDIOVASCULAR: No chest pain or shortness of breath RESPIRATORY: No cough, wheezing, or hemoptysis. GASTROINTESTINAL: No nausea, vomiting, diarrhea or constipation. GENITOURINARY: No dysuria, frequency, or change in urination. MUSCULOSKELETAL: +Weakness of legs bilaterally. No joint or muscle swelling or pain. No neck or back pain. SKIN: No rash NEUROLOGIC: No headache, vertigo, loss of consciousness, or change in strength/ sensation. ENDOCRINE: No increased thirst. No abnormal weight change HEMATOLOGIC/LYMPHATIC: No anemia, easy bleeding, or history of blood clots. ALLERGIC/IMMUNOLOGIC: No hives or skin allergy. 11/17/16 15:17 *Physical Exam - Vital Signs Last Vital Signs Temp Pulse Resp BP Pulse Ox 98.4 F 116 H 17 130/97 98 11/17/16 11:49 11/17/16 11:49 11/17/16 11:49 11/17/16 11:49 11/17/16 11:49 - Physical Exam Comments: 11/17/16 15:10 GENERAL: +Slurred speech. Some stuttering / word finding difficulty. Awake, alert, and fully oriented, in no acute distress HEAD: No signs of trauma, normocephalic, atraumatic EYES: PERRLA, EOMI, sclera anicteric, conjunctiva clear ENT: Auricles normal inspection, hearing grossly normal, nares patent, oropharynx clear without exudates. Moist mucosa NECK: Normal ROM, supple, no lymphadenopathy, JVD, or masses LUNGS: No distress, speaks full sentences, clear to auscultation bilaterally HEART: Regular rate and rhythm, normal S1 and S2, no murmurs, rubs or gallops, peripheral pulses normal and equal bilaterally. ABDOMEN: Soft, nontender, normoactive bowel sounds. No guarding, no rebound. No masses EXTREMITIES: +Change in sensation (loss of pinprick at L leg and L arm). Normal inspection, Normal range of motion, no edema. No clubbing or cyanosis. NEUROLOGICAL: Cranial nerves II through XII grossly intact. Normal speech, normal gait, no focal sensorimotor deficits SKIN: Warm, Dry, normal turgor, no rashes or lesions noted. 11/17/16 15:18 ED Treatment Course - LABORATORY CBC & Chemistry Diagram: 11/17/16 12:43 11/17/16 12:43 - ADDITIONAL ORDERS Additional order review: 11/17/16 12:43 RBC 4.07 MCV 91.7 MCHC 32.3 RDW 13.8 MPV 8.8 D - RADIOLOGY Radiology Studies Ordered: Category Date Time Status HEAD CT WITHOUT CONTRAST [CT] Stat CT Scan 11/17/16 12:40 Completed CHEST X-RAY PORTABLE* [RAD] Stat Radiology 11/17/16 12:42 Ordered Medical Decision Making - Medical Decision Making 11/17/16 15:21 Ms. Mcleod presents with 12 hour old symptoms of weakness and slurred speech. NIHSS value 9. Will consult neurologist ([facility]) 11/17/16 15:[address] / Chest XR both without acute pathology. 11/17/16 16:12 Jake paula - consulting [facility] instead. Spoke with Dr. Goss, will admit for further care. Dr. Mcarthur consulted as well for follow-up with instructions for labetalol 5mg prn for bp above 190 systolic 11/17/16 16:26 *DC/Admit/Observation/Transfer Diagnosis at time of Disposition: Weakness - Discharge Dispostion Admit: Yes - Referrals Referrals: Kei Marlow MD [Primary Care Provider] - - Attestations Physician Attestion: 11/17/16 16:17 I, Dr. Chase Su, attest that this document has been prepared under my direction and personally reviewed by me in its entirety. I further attest, that it accurately reflects all work, treatment, procedures and medical decision -making performed by me.
[2016-11-17] MEDS ORDERED: LABETALOL HCL 5 MG/1 ML (100MG/20 ML VIAL) IVPUSH PRN (16:26)
[2016-11-17] MEDS ORDERED: ACETAMINOPHEN 325 MG TABLET (FP) PO PRN (16:27)
[2016-11-17] MEDS: PRAMIPEXOLE DIHYDROCHLORIDE 0.125 MG TABLET PO SCH (21:52)
[2016-11-17] MEDS: APIXABAN 2.5 MG TABLET PO SCH (21:52)
[2016-11-17] MEDS: lamoTRIgine 100 MG TABLET (FP) PO SCH (21:52)
[2016-11-17] MEDS: MEMANTINE HCL 5 MG TABLET (UD) PO SCH (21:52)
[2016-11-17] MEDS: DONEPEZIL HCL 5 MG TABLET (FP) PO SCH (21:52)
[2016-11-17] MEDS ORDERED: CARVEDILOL 12.5 MG TABLET (FP) PO SCH (22:00)
--- NOTE | 2016-11-17 22:16 | CON.CARD ---
Consult Consult Specialty:: cardiology - History of Present Illness History of Present Illness: Ms. Mcleod is a 71 year old female with a significant past medical history of DM, HTN, stroke, seizure, who presents to the emergency department after she began having weakness ELSIE of legs, slurring of speach, and shaking of her R arm this morning around 1am. She decided not to present last night as it was not very bad at the time, but came in as it was much worse upon waking up this morning. The patient denies chest pain, shortness of breath, headache and dizziness. Denies fever, chills, nausea, vomit, diarrhea and constipation. Denies dysuria, frequency, urgency and hematuria. Allergies: NKDA Past surgical history:hysterectomy, left arm break Social history: prior smoking history of approx. 30 pack years PMD - [facility] CAD-->PCI 2014 ICD 2014 Medical History Reviewed Condition Date Treating Physician Comments anxiety/depression atrial fibrillation CVA (2009) with right side weakness Diabetes mellitus, type II Diverticulitis/colitis Hyperlipidemia Hypertension Renal insufficiency seizures Systolic heart failure; s/p ICD 2014 CAD-->PCI 2015 ICD 2014 - History Source History Provided By: Patient, Medical Record - Past Medical History [employer]ITAT[employer] A[employer]LY[employer] MARKETING: Yes: CVA, 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 due to microlithiasis, subclinical vs. perforated diverticulum. elev amylase lipase) Renal/: Yes: Renal Inusuff Psych: Yes: Anxiety Endocrine: Yes: Diabetes Mellitus - Past Surgical History Past Surgical History: Yes: AICD, Colonoscopy (04/2014 severe diverticulosis and adhesions w/sigmoid inflamm, int hemorr, hyperplastic polyps icv, melanosis coli ), Hysterectomy, Stent - Alcohol/Substance Use Hx Alcohol Use: No - Smoking History Smoking history: Former smoker Have you smoked in the past 12 months: No Aproximately how many cigarettes per day: 0 If you are a former smoker, when did you quit?: 1981 - Social History Usual Living Arrangement: Alone ADL: Independent Occupation: No checmical exposure in workplace. History of Recent Travel: No Home Medications - Allergies Allergies/Adverse Reactions: Allergies Allergy/AdvReac Type Severity Reaction Status Date / Time No Known Drug Allergies Allergy Verified 11/17/16 11:54 - Home Medications Home Medications: Ambulatory Orders Apixaban [Eliquis] 2.5 mg PO BID 04/18/16 Digoxin [Lanoxin -] 0.125 mg PO DAILY 04/18/16 Glipizide [Glipizide Xl] 5 mg PO DAILY 04/18/16 Lamotrigine 100 mg PO BID 04/18/16 Carvedilol [Coreg -] 12.5 mg PO BID tablet 07/14/16 Bupropion HCl [Wellbutrin Sr] 150 mg PO DAILY 11/17/16 Donepezil HCl [Aricept] 10 mg PO DAILY 11/17/16 Memantine HCl [Namenda -] 10 mg PO DAILY 11/17/16 Pramipexole Di-HCl [Mirapex] 0.25 mg PO DAILY 11/17/16 Family Disease History - Family Disease History Family Disease History: [place]: Sister (Breast), Other: Son (CVA age 40) Review of Systems - Review of Systems Constitutional: reports: No Symptoms Eyes: reports: No Symptoms HENT: reports: No Symptoms Neck: reports: No Symptoms Cardiovascular: reports: No Symptoms Gastrointestinal: reports: No Symptoms Genitourinary: reports: No Symptoms Breasts: reports: No Symptoms Reported Musculoskeletal: reports: No Symptoms Integumentary: reports: No Symptoms Neurological: reports: Change in Speech, Weakness Endocrine: reports: No Symptoms Hematology/Lymphatic: reports: No Symptoms Psychiatric: reports: No Symptoms Vital Signs: Vital Signs Temperature 98.1 F 11/17/16 21:58 Pulse Rate 117 H 11/17/16 21:58 Respiratory Rate 16 11/17/16 21:58 Blood Pressure 140/83 11/17/16 21:58 O2 Sat by Pulse Oximetry (%) 99 11/17/16 17:49 Constitutional: Yes: Well Nourished, No Distress, Calm Eyes: Yes: WNL, Conjunctiva Clear, EOM Intact HENT: Yes: WNL, Atraumatic, Normocephalic Neck: Yes: WNL, Supple, Trachea Midline Respiratory: Yes: WNL, Regular, CTA Bilaterally Gastrointestinal: Yes: WNL, Normal Bowel Sounds Renal/: Yes: WNL Cardiovascular: Yes: WNL, Regular Rate and Rhythm Heart Sounds: Yes: S1, S2 Murmur: Yes: Systolic Murmur Musculoskeletal: Yes: WNL Extremities: Yes: WNL Integumentary: Yes: WNL Neurological: Yes: Alert, Oriented ...Motor Strength: WNL Psychiatric: Yes: WNL, Alert, Oriented - Other Data Labs, Other Data: Laboratory Tests 11/17/16 11/17/16 11/17/16 12:43 12:43 12:43 WBC 4.9 D RBC 4.07 Hgb 12.1 D Hct 37.3 MCV 91.7 MCH 29.7 MCHC 32.3 RDW 13.8 Plt Count 210 MPV 8.8 D ESR Sodium 138 Potassium 5.2 H Chloride 100 Carbon Dioxide 29 D Anion Gap 9 BUN 16 D Creatinine 1.4 H Creat Clearance w eGFR 37.07 POC Glucometer Random Glucose 105 Calcium 8.8 Total Bilirubin 0.9 D AST 64 H D ALT 30 D Alkaline Phosphatase 121 H Creatine Kinase 1268 H Creatine Kinase Index 0.8 CK-MB (CK-2) 11.191 H Troponin I 0.03 C-Reactive Protein Total Protein 7.8 Albumin 3.5 Triglycerides Cholesterol Total LDL Cholesterol HDL Cholesterol Digoxin 0.1599 L 11/17/16 11/17/16 11/17/16 12:56 12:56 21:17 WBC RBC Hgb Hct MCV MCH MCHC RDW Plt Count MPV ESR 41 H Sodium Potassium Chloride Carbon Dioxide Anion Gap BUN Creatinine Creat Clearance w eGFR POC Glucometer 92 Random Glucose Calcium Total Bilirubin AST ALT Alkaline Phosphatase Creatine Kinase Creatine Kinase Index CK-MB (CK-2) Troponin I C-Reactive Protein < 0.3 Total Protein Albumin Triglycerides Cholesterol Total LDL Cholesterol HDL Cholesterol Digoxin 11/18/16 11/18/16 11/18/16 06:20 06:20 06:34 WBC 3.8 L RBC 4.01 Hgb 12.1 Hct 37.0 MCV 92.3 MCH 30.1 MCHC 32.6 RDW 13.8 Plt Count 189 MPV 7.9 D ESR Sodium 142 Potassium 3.6 D Chloride 107 Carbon Dioxide 28 Anion Gap 7 L BUN 13 Creatinine 1.2 H Creat Clearance w eGFR 44.29 POC Glucometer 89 Random Glucose 87 Calcium 8.5 Total Bilirubin 0.9 AST 36 D ALT 24 Alkaline Phosphatase 100 Creatine Kinase Creatine Kinase Index CK-MB (CK-2) Troponin I C-Reactive Protein Total Protein 6.8 Albumin 3.1 L Triglycerides 67 Cholesterol 177 Total LDL Cholesterol 90 HDL Cholesterol 72 H Digoxin Imaging - Results Chest X-ray: Image Reviewed (no i/e) EKG: Image Reviewed (a flutter 2;1 block rep abn) Problem List - Problems (1) Abdominal pain Code(s): R10.9 - UNSPECIFIED ABDOMINAL PAIN Qualifiers: Abdominal location: generalized Qualified Code(s): R10.84 - Generalized abdominal pain (2) Acute on chronic systolic and diastolic heart failure, NYHA class 4 Code(s): I50.43 - ACUTE ON CHRONIC COMBINED SYSTOLIC AND DIASTOLIC HRT FAIL (3) Atypical chest pain Code(s): R07.89 - OTHER CHEST PAIN (4) Coronary artery disease Code(s): I25.10 - ATHSCL HEART DISEASE OF [place] CORONARY ARTERY W/O ANG PCTRS Qualifiers: Coronary Disease-Associated Artery/Lesion type: [place] artery [place] vs. transplanted heart: [place] heart Associated angina: without angina Qualified Code(s): I25.10 - Atherosclerotic heart disease of [place] coronary artery without angina pectoris (5) Elevated lactic acid level Code(s): E87.2 - ACIDOSIS (6) Elevated lipase Code(s): R74.8 - ABNORMAL LEVELS OF OTHER SERUM ENZYMES (7) Hyperkalemia Code(s): E87.5 - HYPERKALEMIA (8) Shortness of breath Code(s): R06.02 - SHORTNESS OF BREATH (9) Tachyarrhythmia Code(s): R00.0 - TACHYCARDIA, UNSPECIFIED (10) Weakness Code(s): R53.1 - WEAKNESS (11) Arrhythmia Code(s): I49.9 - CARDIAC ARRHYTHMIA, UNSPECIFIED (12) Cardiomegaly Code(s): I51.7 - CARDIOMEGALY (13) Diabetes mellitus Code(s): E11.9 - TYPE 2 DIABETES MELLITUS WITHOUT COMPLICATIONS Qualifiers: Diabetes mellitus type: type 2 Diabetes mellitus complication status: with other specified complication (14) Acute CVA (cerebrovascular accident) Code(s): I63.9 - CEREBRAL INFARCTION, UNSPECIFIED (15) Acute coronary syndrome Code(s): I24.9 - ACUTE ISCHEMIC HEART DISEASE, UNSPECIFIED (16) [id number]-uv-kcgrgzn renal failure Code(s): N17.9 - ACUTE KIDNEY FAILURE, UNSPECIFIED N18.9 - CHRONIC KIDNEY DISEASE, UNSPECIFIED (17) Anasarca Code(s): R60.1 - GENERALIZED EDEMA (18) Anemia Code(s): D64.9 - ANEMIA, UNSPECIFIED Qualifiers: Other causes of anemia: chronic disease, other (19) Ascites Code(s): R18.8 - OTHER ASCITES Qualifiers: Ascites type: other type Qualified Code(s): R18.8 - Other ascites (20) Asterixis Code(s): R27.8 - OTHER LACK OF COORDINATION (21) Atrial fibrillation and flutter Code(s): I48.91 - UNSPECIFIED ATRIAL FIBRILLATION I48.92 - UNSPECIFIED ATRIAL FLUTTER (22) Atrial fibrillation with RVR Code(s): I48.91 - UNSPECIFIED ATRIAL FIBRILLATION (23) Atrial flutter Code(s): I48.92 - UNSPECIFIED ATRIAL FLUTTER (24) CAP (community acquired pneumonia) Code(s): J18.9 - PNEUMONIA, UNSPECIFIED ORGANISM (25) CHF (congestive heart failure) Code(s): I50.9 - HEART FAILURE, UNSPECIFIED (26) CHF exacerbation Code(s): I50.9 - HEART FAILURE, UNSPECIFIED (27) CVA (cerebral vascular accident) Code(s): I63.9 - CEREBRAL INFARCTION, UNSPECIFIED (28) Cardiac cirrhosis Code(s): K76.1 - CHRONIC PASSIVE CONGESTION OF LIVER (29) Chest pain at rest Code(s): R07.9 - CHEST PAIN, UNSPECIFIED (30) Chronic leukopenia Code(s): D72.819 - DECREASED WHITE BLOOD CELL COUNT, UNSPECIFIED (31) DVT prophylaxis Code(s): [id number] - (32) Dehydration Code(s): E86.0 - DEHYDRATION (33) Dementia Code(s): F03.90 - UNSPECIFIED DEMENTIA WITHOUT BEHAVIORAL DISTURBANCE (34) Diarrhea Code(s): R19.7 - DIARRHEA, UNSPECIFIED (35) Elevated CA-125 Code(s): R97.1 - ELEVATED CANCER ANTIGEN 125 [CA 125] (36) Elevated troponin Code(s): R74.8 - ABNORMAL LEVELS OF OTHER SERUM ENZYMES (37) GI bleed Code(s): K92.2 - GASTROINTESTINAL HEMORRHAGE, UNSPECIFIED Qualifiers: GI bleed type/associated pathology: anorectal hemorrhage Qualified Code (s): K62.5 - Hemorrhage of anus and rectum (38) Hemorrhoids Code(s): K64.9 - UNSPECIFIED HEMORRHOIDS Qualifiers: Hemorrhoid type: third degree Qualified Code(s): K64.2 - Third degree hemorrhoids (39) Hyperglycemia Code(s): R73.9 - HYPERGLYCEMIA, UNSPECIFIED (40) Hyperlipidemia Code(s): E78.5 - HYPERLIPIDEMIA, UNSPECIFIED (41) ICD (implantable cardioverter-defibrillator) in place Code(s): Z95.810 - PRESENCE OF AUTOMATIC (IMPLANTABLE) CARDIAC DEFIBRILLATOR (42) Mitral regurgitation and aortic stenosis Code(s): I08.0 - RHEUMATIC DISORDERS OF BOTH MITRAL AND AORTIC VALVES (43) NSTEMI (non-ST elevated myocardial infarction) Code(s): I21.4 - NON-ST ELEVATION (NSTEMI) MYOCARDIAL INFARCTION (44) Pancreatitis Code(s): K85.9 - ACUTE PANCREATITIS, UNSPECIFIED * DO NOT USE * Qualifiers: Chronicity: acute Pancreatitis type: other (45) Paroxysmal atrial fibrillation Code(s): I48.0 - PAROXYSMAL ATRIAL FIBRILLATION (46) Partial symptomatic epilepsy with complex partial seizures, not intractable , with status epilepticus Code(s): G40.201 - LOCAL-REL SYMPTC EPI W CMPLX PRT SEIZ, NOT NTRCT, W STAT EPI (47) Pleural effusion Code(s): J90 - PLEURAL EFFUSION, NOT ELSEWHERE CLASSIFIED (48) Poor appetite Code(s): R63.0 - ANOREXIA (49) Pulmonary embolism Code(s): I26.99 - OTHER PULMONARY EMBOLISM WITHOUT ACUTE COR PULMONALE (50) Pulmonary hypertension Code(s): I27.2 - OTHER SECONDARY PULMONARY HYPERTENSION (51) Rapid atrial fibrillation Code(s): I48.91 - UNSPECIFIED ATRIAL FIBRILLATION (52) Rash and nonspecific skin eruption Code(s): R21 - RASH AND OTHER NONSPECIFIC SKIN ERUPTION (53) Systolic and diastolic CHF w/reduced LV function, NYHA class 4 Code(s): I50.40 - UNSP COMBINED SYSTOLIC AND DIASTOLIC (CONGESTIVE) HRT FAIL (54) TIA (transient ischemic attack) Code(s): G45.9 - TRANSIENT CEREBRAL ISCHEMIC ATTACK, UNSPECIFIED (55) Anxiety and depression Code(s): F41.8 - OTHER SPECIFIED ANXIETY DISORDERS (56) Atrial fibrillation Code(s): I48.91 - UNSPECIFIED ATRIAL FIBRILLATION Qualifiers: Atrial fibrillation type: chronic Qualified Code(s): I48.2 - Chronic atrial fibrillation (57) CKD (chronic kidney disease) Code(s): N18.9 - CHRONIC KIDNEY DISEASE, UNSPECIFIED Qualifiers: Chronic kidney disease stage: unspecified stage Qualified Code(s): N18.9 - Chronic kidney disease, unspecified (58) History of CVA (cerebrovascular accident) Code(s): Z86.73 - PRSNL HX OF TIA (TIA), AND CEREB INFRC W/O RESID DEFICITS (59) Hypertension Code(s): I10 - ESSENTIAL (PRIMARY) HYPERTENSION Qualifiers: Hypertension type: essential hypertension Qualified Code(s): I10 - Essential (primary) hypertension (60) Renal mass Code(s): N28.89 - OTHER SPECIFIED DISORDERS OF KIDNEY AND URETER (61) Seizure disorder Code(s): G40.909 - EPILEPSY, UNSP, NOT INTRACTABLE, WITHOUT STATUS EPILEPTICUS Assessment/Plan CVA vs TIA uncontrolled BP CAD-->PCI 2015 ICD 2015 anxiety/depression atrial fibrillation CVA (2009) with right side weakness Diabetes mellitus, type II Diverticulitis/colitis Hyperlipidemia Hypertension Renal insufficiency seizures Systolic heart failure; s/p ICD 2015 CAD-->PCI 2015 ICD 2015 Plan cont ac neuro eval cont telemetry d/c dig increase coreg to 25 bid
[2016-11-18] MEDS: glipiZIDE 5 MG TABLET (FP) PO SCH (06:50)
[2016-11-18 07:26] LABS: MCH 30.1 pg (25.7-33.7); MCHC 32.6 g/dl (32.0-36.0); MEAN CELL VOLUME 92.3 fl (80-96); MEAN PLT VOLUME 7.9 fl (7.5-11.1); PLATELET COUNT 189 K/MM3 (134-434); RDW 13.8 % (11.6-15.6); WHITE BLOOD COUNT 3.8 K/mm3 (4.0-10.0)
[2016-11-18 07:48] LABS: ALBUMIN 3.1 g/dl (3.4-5.0); ALK PHOS 100 U/L (45-117); ANION GAP 7 (8-16); BILIRUBIN,TOTAL 0.9 mg/dL (0.2-1.0); CALCIUM 8.5 mg/dL (8.5-10.1); CHOLESTEROL 177 mg/dL (50-200); CO2 28 mmol/L (21-32); CREATININE 1.2 mg/dL (0.55-1.02); GLUCOSE,RANDOM 87 mg/dL (74-106); LDL CHOLESTEROL (ONLY SJRH) 90 mg/dL (5-100); SGOT/AST 36 U/L (15-37); SGPT/ALT 24 U/L (12-78); TOT PROT 6.8 g/dl (6.4-8.2)
[2016-11-18 08:02] LABS: URINE APPEARANCE CLEAR; URINE BILIRUBIN NEGATIVE (NEGATIVE); URINE BLOOD 1+ (NEGATIVE); URINE COLOR YELLOW; URINE GLUCOSE (UA) NEGATIVE (NEGATIVE); URINE KETONE NEGATIVE (NEGATIVE); URINE NITRITE NEGATIVE (NEGATIVE)
--- NOTE | 2016-11-18 08:17 | EKG ---
Test Reason : Blood Pressure : / mmHG Vent. Rate : 111 BPM Atrial Rate : 222 BPM P-R Int : 000 ms QRS Dur : 088 ms QT Int : 338 ms P-R-T Axes : 256 046 084 degrees QTc Int : 459 ms ATRIAL FLUTTER WITH 2:1 A-V CONDUCTION SEPTAL INFARCT (CITED ON OR BEFORE 18-APR-2016) ABNORMAL ECG WHEN COMPARED WITH ECG OF 12-JUL-2016 10:59, VENT. RATE HAS INCREASED BY 47 BPM QUESTIONABLE CHANGE IN QRS AXIS ST NOW DEPRESSED IN INFERIOR LEADS T WAVE INVERSION NO LONGER EVIDENT IN INFERIOR LEADS T WAVE INVERSION NO LONGER EVIDENT IN ANTERIOR LEADS Confirmed by MARIANA KEATING, IGNACIO ([id number]) on 11/18/2016 8:16:59 AM Referred By: FACUNDO Confirmed By:IGNACIO PEÑA MD
[2016-11-18 08:28] LABS: URINE LEUK ESTERASE 1+ (NEGATIVE); URINE PROTEIN 1+ (NEGATIVE)
--- NOTE | 2016-11-18 08:32 | PN ---
Progress Note, Physician History of Present Illness: Ms. Mcleod is a 71 year old female with a significant past medical history of DM, HTN, stroke, seizure, who presents to the emergency department after she began having weakness ELSIE of legs, slurring of speach, and shaking of her R arm this morning around 1am. She decided not to present last night as it was not very bad at the time, but came in as it was much worse upon waking up this morning. The patient denies chest pain, shortness of breath, headache and dizziness. Denies fever, chills, nausea, vomit, diarrhea and constipation. Denies dysuria, frequency, urgency and hematuria. Allergies: NKDA Past surgical history:hysterectomy, left arm break Social history: prior smoking history of approx. 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 Diabetes mellitus, type II Diverticulitis/colitis Hyperlipidemia Hypertension Renal insufficiency seizures Systolic heart failure; s/p ICD 2014 CAD-->PCI 2015 ICD 2014 - Current Medication List Current Medications: Active Medications Acetaminophen (Tylenol -) 650 mg PO Q6H PRN PRN Reason: FEVER OR PAIN Apixaban (Eliquis -) 2.5 mg PO BID [facility] Last Admin: 11/17/16 21:52 Dose: 2.5 mg Bupropion HCl (Wellbutrin Xl -) 150 mg PO DAILY [facility] Carvedilol (Coreg -) 25 mg PO BID [facility] Donepezil HCl (Aricept -) 5 mg PO BID [facility] Last Admin: 11/17/16 21:52 Dose: 5 mg Glipizide (Glucotrol -) 5 mg PO DAILY@0700 [facility] Last Admin: 11/18/16 06:50 Dose: Not Given Labetalol HCl (Normodyne Injection -) 5 mg IVPUSH PRN PRN PRN Reason: For systolic BP >190 Lamotrigine (Lamictal -) 100 mg PO BID [facility] Last Admin: 11/17/16 21:52 Dose: 100 mg Memantine (Namenda -) 5 mg PO BID [facility] Last Admin: 11/17/16 21:52 Dose: 5 mg Polyethylene Glycol (Miralax (For Daily Use) -) 17 gm PO DAILY [facility] Pramipexole Dihydrochloride (Mirapex -) 0.125 mg PO HS [facility] Last Admin: 11/17/16 21:52 Dose: 0.125 mg - Objective Vital Signs: Vital Signs Temperature 98.6 F 11/18/16 06:54 Pulse Rate 121 H 11/18/16 06:54 Respiratory Rate 16 11/18/16 06:54 Blood Pressure 134/95 11/18/16 06:54 O2 Sat by Pulse Oximetry (%) 99 11/17/16 21:00 Eyes: Yes: WNL, Conjunctiva Clear, EOM Intact HENT: Yes: WNL, Atraumatic, Normocephalic Neck: Yes: WNL, Supple, Trachea Midline Cardiovascular: Yes: Murmur, S1, S2 Respiratory: Yes: WNL, Regular, CTA Bilaterally Gastrointestinal: Yes: WNL, Normal Bowel Sounds Genitourinary: Yes: WNL Musculoskeletal: Yes: WNL Extremities: Yes: WNL Edema: No Integumentary: Yes: WNL Neurological: Yes: Alert, Oriented ...Motor Strength: WNL Psychiatric: Yes: WNL Labs: CBC, BMP 11/18/16 06:20 11/18/16 06:20 Problem List - Problems (1) Abdominal pain Code(s): R10.9 - UNSPECIFIED ABDOMINAL PAIN Qualifiers: Abdominal location: generalized Qualified Code(s): R10.84 - Generalized abdominal pain (2) Acute on chronic systolic and diastolic heart failure, NYHA class 4 Code(s): I50.43 - ACUTE ON CHRONIC COMBINED SYSTOLIC AND DIASTOLIC HRT FAIL (3) Atypical chest pain Code(s): R07.89 - OTHER CHEST PAIN (4) Coronary artery disease Code(s): I25.10 - ATHSCL HEART DISEASE OF [place] CORONARY ARTERY W/O ANG PCTRS Qualifiers: Coronary Disease-Associated Artery/Lesion type: [place] artery [place] vs. transplanted heart: [place] heart Associated angina: without angina Qualified Code(s): I25.10 - Atherosclerotic heart disease of [place] coronary artery without angina pectoris (5) Elevated lactic acid level Code(s): E87.2 - ACIDOSIS (6) Elevated lipase Code(s): R74.8 - ABNORMAL LEVELS OF OTHER SERUM ENZYMES (7) Hyperkalemia Code(s): E87.5 - HYPERKALEMIA (8) Shortness of breath Code(s): R06.02 - SHORTNESS OF BREATH (9) Tachyarrhythmia Code(s): R00.0 - TACHYCARDIA, UNSPECIFIED (10) Weakness Code(s): R53.1 - WEAKNESS (11) Arrhythmia Code(s): I49.9 - CARDIAC ARRHYTHMIA, UNSPECIFIED (12) Cardiomegaly Code(s): I51.7 - CARDIOMEGALY (13) Diabetes mellitus Code(s): E11.9 - TYPE 2 DIABETES MELLITUS WITHOUT COMPLICATIONS Qualifiers: Diabetes mellitus type: type 2 Diabetes mellitus complication status: with other specified complication (14) Acute CVA (cerebrovascular accident) Code(s): I63.9 - CEREBRAL INFARCTION, UNSPECIFIED (15) Acute coronary syndrome Code(s): I24.9 - ACUTE ISCHEMIC HEART DISEASE, UNSPECIFIED (16) [id number] renal failure Code(s): N17.9 - ACUTE KIDNEY FAILURE, UNSPECIFIED N18.9 - CHRONIC KIDNEY DISEASE, UNSPECIFIED (17) Anasarca Code(s): R60.1 - GENERALIZED EDEMA (18) Anemia Code(s): D64.9 - ANEMIA, UNSPECIFIED Qualifiers: Other causes of anemia: chronic disease, other (19) Ascites Code(s): R18.8 - OTHER ASCITES Qualifiers: Ascites type: other type Qualified Code(s): R18.8 - Other ascites (20) Asterixis Code(s): R27.8 - OTHER LACK OF COORDINATION (21) Atrial fibrillation and flutter Code(s): I48.91 - UNSPECIFIED ATRIAL FIBRILLATION I48.92 - UNSPECIFIED ATRIAL FLUTTER (22) Atrial fibrillation with RVR Code(s): I48.91 - UNSPECIFIED ATRIAL FIBRILLATION (23) Atrial flutter Code(s): I48.92 - UNSPECIFIED ATRIAL FLUTTER (24) CAP (community acquired pneumonia) Code(s): J18.9 - PNEUMONIA, UNSPECIFIED ORGANISM (25) CHF (congestive heart failure) Code(s): I50.9 - HEART FAILURE, UNSPECIFIED (26) CHF exacerbation Code(s): I50.9 - HEART FAILURE, UNSPECIFIED (27) CVA (cerebral vascular accident) Code(s): I63.9 - CEREBRAL INFARCTION, UNSPECIFIED (28) Cardiac cirrhosis Code(s): K76.1 - CHRONIC PASSIVE CONGESTION OF LIVER (29) Chest pain at rest Code(s): R07.9 - CHEST PAIN, UNSPECIFIED (30) Chronic leukopenia Code(s): D72.819 - DECREASED WHITE BLOOD CELL COUNT, UNSPECIFIED (31) DVT prophylaxis Code(s): [id number] - (32) Dehydration Code(s): E86.0 - DEHYDRATION (33) Dementia Code(s): F03.90 - UNSPECIFIED DEMENTIA WITHOUT BEHAVIORAL DISTURBANCE (34) Diarrhea Code(s): R19.7 - DIARRHEA, UNSPECIFIED (35) Elevated CA-125 Code(s): R97.1 - ELEVATED CANCER ANTIGEN 125 [CA 125] (36) Elevated troponin Code(s): R74.8 - ABNORMAL LEVELS OF OTHER SERUM ENZYMES (37) GI bleed Code(s): K92.2 - GASTROINTESTINAL HEMORRHAGE, UNSPECIFIED Qualifiers: GI bleed type/associated pathology: anorectal hemorrhage Qualified Code (s): K62.5 - Hemorrhage of anus and rectum (38) Hemorrhoids Code(s): K64.9 - UNSPECIFIED HEMORRHOIDS Qualifiers: Hemorrhoid type: third degree Qualified Code(s): K64.2 - Third degree hemorrhoids (39) Hyperglycemia Code(s): R73.9 - HYPERGLYCEMIA, UNSPECIFIED (40) Hyperlipidemia Code(s): E78.5 - HYPERLIPIDEMIA, UNSPECIFIED (41) ICD (implantable cardioverter-defibrillator) in place Code(s): Z95.810 - PRESENCE OF AUTOMATIC (IMPLANTABLE) CARDIAC DEFIBRILLATOR (42) Mitral regurgitation and aortic stenosis Code(s): I08.0 - RHEUMATIC DISORDERS OF BOTH MITRAL AND AORTIC VALVES (43) NSTEMI (non-ST elevated myocardial infarction) Code(s): I21.4 - NON-ST ELEVATION (NSTEMI) MYOCARDIAL INFARCTION (44) Pancreatitis Code(s): K85.9 - ACUTE PANCREATITIS, UNSPECIFIED * DO NOT USE * Qualifiers: Chronicity: acute Pancreatitis type: other (45) Paroxysmal atrial fibrillation Code(s): I48.0 - PAROXYSMAL ATRIAL FIBRILLATION (46) Partial symptomatic epilepsy with complex partial seizures, not intractable , with status epilepticus Code(s): G40.201 - LOCAL-REL SYMPTC EPI W CMPLX PRT SEIZ, NOT NTRCT, W STAT EPI (47) Pleural effusion Code(s): J90 - PLEURAL EFFUSION, NOT ELSEWHERE CLASSIFIED (48) Poor appetite Code(s): R63.0 - ANOREXIA (49) Pulmonary embolism Code(s): I26.99 - OTHER PULMONARY EMBOLISM WITHOUT ACUTE COR PULMONALE (50) Pulmonary hypertension Code(s): I27.2 - OTHER SECONDARY PULMONARY HYPERTENSION (51) Rapid atrial fibrillation Code(s): I48.91 - UNSPECIFIED ATRIAL FIBRILLATION (52) Rash and nonspecific skin eruption Code(s): R21 - RASH AND OTHER NONSPECIFIC SKIN ERUPTION (53) Systolic and diastolic CHF w/reduced LV function, NYHA class 4 Code(s): I50.40 - UNSP COMBINED SYSTOLIC AND DIASTOLIC (CONGESTIVE) HRT FAIL (54) TIA (transient ischemic attack) Code(s): G45.9 - TRANSIENT CEREBRAL ISCHEMIC ATTACK, UNSPECIFIED (55) Anxiety and depression Code(s): F41.8 - OTHER SPECIFIED ANXIETY DISORDERS (56) Atrial fibrillation Code(s): I48.91 - UNSPECIFIED ATRIAL FIBRILLATION Qualifiers: Atrial fibrillation type: chronic Qualified Code(s): I48.2 - Chronic atrial fibrillation (57) CKD (chronic kidney disease) Code(s): N18.9 - CHRONIC KIDNEY DISEASE, UNSPECIFIED Qualifiers: Chronic kidney disease stage: unspecified stage Qualified Code(s): N18.9 - Chronic kidney disease, unspecified (58) History of CVA (cerebrovascular accident) Code(s): Z86.73 - PRSNL HX OF TIA (TIA), AND CEREB INFRC W/O RESID DEFICITS (59) Hypertension Code(s): I10 - ESSENTIAL (PRIMARY) HYPERTENSION Qualifiers: Hypertension type: essential hypertension Qualified Code(s): I10 - Essential (primary) hypertension (60) Renal mass Code(s): N28.89 - OTHER SPECIFIED DISORDERS OF KIDNEY AND URETER (61) Seizure disorder Code(s): G40.909 - EPILEPSY, UNSP, NOT INTRACTABLE, WITHOUT STATUS EPILEPTICUS Assessment/Plan CVA vs TIA uncontrolled BP CAD-->PCI 2015 ICD 2015 anxiety/depression atrial fibrillation CVA (2010) with right side weakness Diabetes mellitus, type II Diverticulitis/colitis Hyperlipidemia Hypertension Renal insufficiency seizures Systolic heart failure; s/p ICD 2015 CAD-->PCI 2015 ICD 2015 Plan cont ac neuro eval cont telemetry d/c dig increase coreg to 25 bid
[2016-11-18 08:40] LABS: URINE BACTERIA FEW /hpf (NONE SEEN); URINE HYALINE CAST 4 /lpf; URINE MUCUS RARE; URINE RBC 1 /hpf (0-3); URINE WBC 11 /hpf (3-5)
[2016-11-18] MEDS ORDERED: PT OWN MED DRAWER 7, Y5N ONE ×2 (09:59→21:35)
[2016-11-18] MEDS ORDERED: DIGOXIN 0.125 MG TABLET (FP) PO SCH (10:00)
[2016-11-18] MEDS: CARVEDILOL 25 MG TABLET (FP) PO SCH ×2 (10:04→21:37)
[2016-11-18] MEDS: MEMANTINE HCL 5 MG TABLET (UD) PO SCH ×2 (10:04→21:37)
[2016-11-18] MEDS: DONEPEZIL HCL 5 MG TABLET (FP) PO SCH ×2 (10:04→21:37)
[2016-11-18] MEDS: lamoTRIgine 100 MG TABLET (FP) PO SCH ×2 (10:04→21:37)
[2016-11-18] MEDS: APIXABAN 2.5 MG TABLET PO SCH ×2 (10:04→21:37)
--- NOTE | 2016-11-18 10:50 | CON.NEP ---
Consult Consult Specialty:: Nephrology Reason for Consultation:: azotemia on admission for r/o cva - History of Present Illness Chief Complaint: acute inability to speak and lower extremity weakness History of Present Illness: she was in usual state of health this week on sunday am she started with difficulty speaking and weakness/shaky feeling in her legs she feared she was having a stroke and she went to see her pmd problems were worse in the doctor's office so he sent her to ER she has h/o cva x 2 in the past 2009 and 2013 with right hemiparesis she denies nausea or vomiting or diarrhea, no urinary sx, does have h/o leg edema in the past but not recently prior history noted she denies knowledge of prior renal disease she has implantable defibrillator, [facility] - History Source History Provided By: Patient, Medical Record Limitations to Obtaining History: No Limitations - 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 due to microlithiasis, subclinical vs. perforated diverticulum. elev amylase lipase) Renal/: Yes: Renal Inusuff Psych: Yes: Anxiety Endocrine: Yes: Diabetes Mellitus - Past Surgical History Past Surgical History: Yes: AICD, Colonoscopy (04/2014 severe diverticulosis and adhesions w/sigmoid inflamm, int hemorr, hyperplastic polyps icv, melanosis coli ), Hysterectomy, Stent - Alcohol/Substance Use Hx Alcohol Use: No - Smoking History Smoking history: Former smoker Have you smoked in the past 12 months: No Aproximately how many cigarettes per day: 0 If you are a former smoker, when did you quit?: 1981 - Social History Usual Living Arrangement: Alone ADL: Independent Occupation: No checmical exposure in workplace. History of Recent Travel: No Home Medications - Allergies Allergies/Adverse Reactions: Allergies Allergy/AdvReac Type Severity Reaction Status Date / Time No Known Drug Allergies Allergy Verified 11/17/16 11:54 - Home Medications Home Medications: Ambulatory Orders Apixaban [Eliquis] 2.5 mg PO BID 04/18/16 Digoxin [Lanoxin -] 0.125 mg PO DAILY 04/18/16 Glipizide [Glipizide Xl] 5 mg PO DAILY 04/18/16 Lamotrigine 100 mg PO BID 04/18/16 Carvedilol [Coreg -] 12.5 mg PO BID tablet 07/14/16 Bupropion HCl [Wellbutrin Sr] 150 mg PO DAILY 11/17/16 Donepezil HCl [Aricept] 10 mg PO DAILY 11/17/16 Memantine HCl [Namenda -] 10 mg PO DAILY 11/17/16 Pramipexole Di-HCl [Mirapex] 0.25 mg PO DAILY 11/17/16 Family Disease History - Family Disease History Family History: Unremarkable Family Disease History: CA: Sister (Breast), Other: Son (CVA age 40) Review of Systems - Review of Systems Constitutional: reports: Weakness. denies: Chills, Lethargy, Loss of Appetite Eyes: reports: No Symptoms HENT: reports: No Symptoms Neck: reports: No Symptoms Cardiovascular: denies: Palpitations, Shortness of Breath Respiratory: reports: Cough Gastrointestinal: reports: No Symptoms. denies: Diarrhea Genitourinary: reports: No Symptoms. denies: Frequency, Urgency Breasts: reports: No Symptoms Reported Musculoskeletal: reports: No Symptoms Integumentary: reports: No Symptoms Neurological: reports: Change in Speech, Incoordination, Tremors Endocrine: reports: No Symptoms Hematology/Lymphatic: reports: No Symptoms Psychiatric: reports: No Symptoms Nephrology Consult - Height Height: 5 ft 3 in - Weight Weight: 137 lb 3 oz - BMI Body Mass Index (BMI): 24.3 - Lab Results CBC,BMP: CBC, BMP 11/18/16 06:20 11/18/16 06:20 Anion Gap: Anion Gap Anion Gap 7 (8-16) L 11/18/16 06:20 - Imaging Chest X-ray: Image Reviewed - Physical Examination Vital Signs: Vital Signs Temperature 98.6 F 11/18/16 06:54 Pulse Rate 121 H 11/18/16 06:54 Respiratory Rate 16 11/18/16 06:54 Blood Pressure 134/95 11/18/16 06:54 O2 Sat by Pulse Oximetry (%) 99 11/17/16 21:00 Constitutional: Yes: Well Nourished, No Distress, Calm Eyes: Yes: WNL HENT: Yes: WNL Neck: Yes: WNL Cardiovascular: Yes: Tachycardia Respiratory: Yes: WNL Gastrointestinal: Yes: WNL Musculoskeletal: Yes: WNL Extremities: Yes: WNL Integumentary: Yes: WNL Neurological: Yes: Oriented, Weakness (subjective) Problem List - Problems (1) Acute prerenal azotemia Code(s): R79.89 - OTHER SPECIFIED ABNORMAL FINDINGS OF BLOOD CHEMISTRY Assessment/Plan 11/17/16 11/17/16 11/17/16 12:43 12:43 12:56 WBC 4.9 D Hgb 12.1 D Hct 37.3 Plt Count 210 ESR 41 H Sodium 138 Potassium 5.2 H Carbon Dioxide 29 D BUN 16 D Creatinine 1.4 H Urine Appearance Ur Specific Stow Urine Protein Digoxin 0.1599 L 11/18/16 11/18/16 11/18/16 06:20 06:20 07:55 WBC 3.8 L Hgb 12.1 Hct 37.0 Plt Count 189 ESR Sodium 142 Potassium 3.6 D Carbon Dioxide 28 BUN 13 Creatinine 1.2 H Urine Appearance Clear Ur Specific Stow Pending Urine Protein 1+ H Digoxin Acute Prerenal Azotemia- resolving Mild hyperkalemia- 2/2 dehydration/worsening renal function improved here labs also show hemoconcentration, contraction alkalosis Probable underlying chronic kidney disease 2/2 multiple factors incl cardiovascular disease from htn, dm should continue to improve as she is stabilized and hydrated Await Neurology w/u Tachycardia Plan- follow up chemistries in am ultrasound of kidneys and bladder
[2016-11-18] MEDS: POLYETHYLENE GLYCOL 3350 119 GM BTL PO SCH (14:27)
--- NOTE | 2016-11-18 15:50 | HP ---
Admitting History and Physical - Primary Care Physician PCP: Kei Marlow - Admission Chief Complaint: weakness History of Present Illness: 71 yo F history DM, HTN, CVA, seizures presents with B/L lower extremity weakness, tremors in the hands, and slurred speech. She states the symptoms started around 1am, but she did not seek evaluation until now, as they worsened when she woke up this morning. She has had similar symptoms in the past. She went to Dr. Marlow's office this morning, who sent her to ED for evaluation. 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 due to microlithiasis, subclinical vs. perforated diverticulum. elev amylase lipase) Renal/: Yes: Renal Inusuff Psych: Yes: Anxiety Endocrine: Yes: Diabetes Mellitus - Past Surgical History Past Surgical History: Yes: AICD, Colonoscopy (04/2014 severe diverticulosis and adhesions w/sigmoid inflamm, int hemorr, hyperplastic polyps icv, melanosis coli ), Hysterectomy, Stent - Smoking History Smoking history: Former smoker Have you smoked in the past 12 months: No Aproximately how many cigarettes per day: 0 If you are a former smoker, when did you quit?: 1982 - Alcohol/Substance Use Hx Alcohol Use: No - Social History ADL: Independent Occupation: No checmical exposure in workplace. History of Recent Travel: No Home Medications - Allergies Allergies/Adverse Reactions: Allergies Allergy/AdvReac Type Severity Reaction Status Date / Time No Known Drug Allergies Allergy Verified 11/17/16 11:54 - Home Medications Home Medications: Ambulatory Orders Apixaban [Eliquis] 2.5 mg PO BID 04/18/16 Digoxin [Lanoxin -] 0.125 mg PO DAILY 04/18/16 Glipizide [Glipizide Xl] 5 mg PO DAILY 04/18/16 Lamotrigine 100 mg PO BID 04/18/16 Bupropion HCl [Wellbutrin Sr] 150 mg PO DAILY 11/17/16 Donepezil HCl [Aricept] 10 mg PO DAILY 11/17/16 Memantine HCl [Namenda -] 10 mg PO DAILY 11/17/16 Pramipexole Di-HCl [Mirapex] 0.25 mg PO DAILY 11/17/16 Carvedilol [Coreg -] 12.5 mg PO DAILY 11/18/16 Family Disease History - Family Disease History Family Disease History: CA: Sister (Breast), Other: Son (CVA age 40) Review of Systems - Review of Systems Constitutional: reports: Weakness Eyes: reports: No Symptoms HENT: reports: No Symptoms Neck: reports: No Symptoms Cardiovascular: reports: No Symptoms Respiratory: reports: No Symptoms Gastrointestinal: reports: No Symptoms Genitourinary: reports: No Symptoms Breasts: reports: No Symptoms Reported Musculoskeletal: reports: Muscle Weakness (right arm) Integumentary: reports: No Symptoms Neurological: reports: Change in Speech, Tremors (right arm), Weakness Endocrine: reports: No Symptoms Hematology/Lymphatic: reports: No Symptoms Psychiatric: reports: No Symptoms Physical Examination Vital Signs: Vital Signs Temperature 97.3 F L 11/18/16 13:49 Pulse Rate 90 11/18/16 13:49 Respiratory Rate 18 11/18/16 13:49 Blood Pressure 113/65 11/18/16 13:49 O2 Sat by Pulse Oximetry (%) 99 11/18/16 09:00 Constitutional: Yes: Well Nourished, No Distress, Calm Cardiovascular: Yes: Regular Rate and Rhythm Respiratory: Yes: Regular Gastrointestinal: Yes: Normal Bowel Sounds, Soft Musculoskeletal: Yes: WNL Extremities: Yes: WNL Edema: No Peripheral Pulses WNL: Yes Neurological: Yes: Alert, Oriented Psychiatric: Yes: Alert, Oriented Labs: CBC, BMP 11/18/16 06:20 11/18/16 06:20 Problem List - Problems (1) Weakness Assessment/Plan: right arm- resolved Code(s): R53.1 - WEAKNESS (2) CVA (cerebral vascular accident) Code(s): I63.9 - CEREBRAL INFARCTION, UNSPECIFIED (3) Acute prerenal azotemia Assessment/Plan: -seen by nephrology -renal U/S insignificant Code(s): R79.89 - OTHER SPECIFIED ABNORMAL FINDINGS OF BLOOD CHEMISTRY (4) Slurred speech Assessment/Plan: resolved Code(s): R47.81 - SLURRED SPEECH Assessment/Plan CVA vs TIA CT head negative awaiting to be evaluated by neurology seen by nephrology, stable at the moment d/c home if stable
[2016-11-18] MEDS: PRAMIPEXOLE DIHYDROCHLORIDE 0.125 MG TABLET PO SCH (21:38)
--- NOTE | 2016-11-18 22:38 | CON.NEURO ---
Consult Consult Specialty:: NEUROLOGY-OMAR KEATING - History of Present Illness Chief Complaint: Difficulty speaking x hours on Sunday am. History of Present Illness: History of Present Illness: 71 yo F history DM, HTN, CVA, seizures presents with B/L lower extremity weakness, tremors in the hands, and slurred speech. She states the symptoms started around 1am, but she did not seek evaluation until now, as they worsened when she woke up this morning. She has had similar symptoms in the past. She went to Dr. Marlow's office yesterday morning, who sent her to ED for evaluation. Pt. reports three months ago she noted, while crossing the street that her left leg was "not coordinated", she was seen by Dr. us?/ as an outpatient and told she had a "stroke" and was placed on Eliquis. In addition she was dx. with seizures(unable to describe character) and since has been on Lamotrigine, a few months ago also had tremors and dx, with "Parkinsons" and placed on Pramipaxole. Reports yesterday, Sunday had at least 6 hours of not being able to "speak properly"(difficult to tell whether aphasia or dysarthria) that has resolved completely,had drooping of right angle of the mouth and right leg weakness that has improved also. She denies headache, visual changes and all other neurologic symptoms. 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 due to microlithiasis, subclinical vs. perforated diverticulum. elev amylase lipase) Renal/: Yes: Renal Inusuff Psych: Yes: Anxiety Endocrine: Yes: Diabetes Mellitus - Past Surgical History Past Surgical History: Yes: AICD, Colonoscopy (04/2014 severe diverticulosis and adhesions w/sigmoid inflamm, int hemorr, hyperplastic polyps icv, melanosis coli ), Hysterectomy, Stent - Alcohol/Substance Use Hx Alcohol Use: No - Smoking History Smoking history: Former smoker Have you smoked in the past 12 months: No Aproximately how many cigarettes per day: 0 If you are a former smoker, when did you quit?: 1981 - Social History Usual Living Arrangement: Alone ADL: Independent Occupation: No checmical exposure in workplace. History of Recent Travel: No Home Medications - Allergies Allergies/Adverse Reactions: Allergies Allergy/AdvReac Type Severity Reaction Status Date / Time No Known Drug Allergies Allergy Verified 11/17/16 11:54 - Home Medications Home Medications: Ambulatory Orders Apixaban [Eliquis] 2.5 mg PO BID 04/18/16 Digoxin [Lanoxin -] 0.125 mg PO DAILY 04/18/16 Glipizide [Glipizide Xl] 5 mg PO DAILY 04/18/16 Lamotrigine 100 mg PO BID 04/18/16 Bupropion HCl [Wellbutrin Sr] 150 mg PO DAILY 11/17/16 Donepezil HCl [Aricept] 10 mg PO DAILY 11/17/16 Memantine HCl [Namenda -] 10 mg PO DAILY 11/17/16 Pramipexole Di-HCl [Mirapex] 0.25 mg PO DAILY 11/17/16 Carvedilol [Coreg -] 12.5 mg PO DAILY 11/18/16 Family Disease History - Family Disease History Family Disease History: CA: Sister (Breast), Other: Son (CVA age 40) Physical Exam-Neuro Vital Signs: Vital Signs Temperature 98.6 F 11/18/16 21:36 Pulse Rate 112 H 11/18/16 21:36 Respiratory Rate 16 11/18/16 21:36 Blood Pressure 136/95 11/18/16 21:36 O2 Sat by Pulse Oximetry (%) 99 11/18/16 09:00 Labs: CBC, BMP 11/18/16 06:20 11/18/16 06:20 - Neuro Exam Speech: Other (No dysarthria or aphasia) Dominant Hand: Right Mini Mental Exam: Memory-3/3 in 1&5 mins, serial 7s impaired. Cranial Nerves II-XII Intact: No (+left cent. facial) DTR's: 0 Left Achilles, 0 Right Achilles (Left knee jerk3+, right 2+), 2+ Right Bicep, 2+ Right Tricep, 2+ Right Brachioradialis, 3+ Left Bicep, 3+ Left Tricep , 3+ Left Brachioradialis Babinski: Present (Bilateral upgoing toes) Response to light touch: Normal Response to pain prick: Normal Coordination: Normal: Finger to Nose (Impaired left F-N) Motor Strength: 4/5: Right Leg, Right Arm (IP is 4/5 rest 5/5+ RUE drift), 5/5: Left Arm, Left Leg NIH Stroke Scale - Total Score NIH Stroke Scale Score: 0 Imaging - Results Cat Scan: Report Reviewed (CT head without acute changes) Assessment/Plan Pt. with hx. 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 circulation ischemic event), now with either motor aphasiaor dysarthria and left hemiparesis that is resolving, the speech/ language disorder has resolved completely, left leg/arm weakness are resolving. This is likely due to intraarterial drop in pressure in cerebral vasculature or thrombotic event. Suggest: 1) Cont. Eliquis 2) MRI/MRA brain(can be done as outpatient if she is being discharged)-to see if she had a post. circulation ischemic event or not, this would justify keeping her on Eliquis). She will require home PT, if she is being discharged i will arrange it when she comes for f/u in my office.. 3) I will see her for f/u on Sunday11/21/16 in my office, pt. will call for appt. Thank you, Rosa Smith MD
--- NOTE | 2016-11-19 05:43 | RAPID ---
Physical Examination Vital Signs: Vital Signs Temperature 98.2 F 11/19/16 02:00 Pulse Rate 111 H 11/19/16 02:00 Respiratory Rate 16 11/19/16 02:00 Blood Pressure 135/82 11/19/16 02:00 O2 Sat by Pulse Oximetry (%) 99 11/18/16 21:00 Findings/Remarks: 71 year old female with a past medical DM, HTN, CVA, seizures presented to ER on 11/17/16 with B/L lower extremity weakness, tremors in the hands, and slurred speech. Patient on eliquis 2.5 bid. At around 4:35 brigitte zimmerman was called. Patient states that she was lying in bed and all of the sudden she felt heaviness of the right side of her body, she states that she is unable to move or get out of bed. A few minuets earlier nurse states she went to get up to go to the bathroom walked with assistance, half hr later when symptoms began. Denies headache, lightheadedness, chest pain, palpitations, dizziness, fever, chills, leg swelling. Constitutional: Yes: Well Nourished, Anxious, Mild Distress Eyes: Yes: WNL (extra ovular movements; unable to look to the right), Conjunctiva Clear HENT: Yes: Atraumatic, Normocephalic. No: Drooling Cardiovascular: Yes: Pulse Irregular, S1, S2. No: Murmur Respiratory: Yes: Regular, CTA Bilaterally Gastrointestinal: Yes: Normal Bowel Sounds, Soft Extremities: Yes: WNL Edema: No Peripheral Pulses WNL: Yes Peripheral Pulses: Left Radial: 2+, Right Radial: 2+, Left Doralis Pedis: 2+, Right Dorsalis Pedis: 2+ Neurological: Yes: Alert, Aphasia, Facial Droop (right), Lethargy, Paresthesia, Unsteady Gait, Weakness (right upper and lower extremity 1/5; when compared to the left 3/5' basel;ine unknown;) Psychiatric: Yes: Alert, Oriented Labs: CBC, BMP 11/18/16 06:20 11/18/16 06:20 Rapid Response - Rapid Response Assessment: 71 year old female with a past medical DM, HTN, CVA, seizures presented to ER on 11/17/16 with B/L lower extremity weakness, tremors in the hands, and slurred speech. Patient on eliquis 2.5 bid. At around 4:35 brigitte zimmerman was called. Now with right upper and lower extremity weakness. #r/o acute CVA -brigitte zimmerman activated/stroke protocol -stroke scale 20 -not candidate for tpa due to recent stroke; -patient already on eliquis -stat head CT -brain CTA -f/u brain MRI that was previously ordered -cbc, bmp, lipids, cardiac profile -swallow eval -secondary stroke precaution -neuro checks -physical therapy -increase eliquis to standard dose 5mg bid; -neuro consulted; will see patient am #atrial fibrillation -rate controlled -increased eliquis to 5mg bid -need for heparin?
[2016-11-19] MEDS ORDERED: oxyCODONE HCL 5 MG TABLET PO PRN (06:48)
[2016-11-19] MEDS ORDERED: ACETAMINOPHEN 325 MG TABLET (FP) PO PRN (06:48)
[2016-11-19] MEDS ORDERED: levETIRAcetam 500 MG/5 ML INJECTION VIAL IVPB ONE ×2 (07:00→12:25)
[2016-11-19] MEDS: APIXABAN 5 MG TABLET PO SCH ×4 (07:00→21:30)
--- NOTE | 2016-11-19 07:15 | CON.NEURO ---
Consult Consult Specialty:: NEUROLOGY-OMAR KEATING Reason for Consultation:: Brigitte Zimmerman called in at 435am today - History of Present Illness Chief Complaint: rRight arm/leg weakness and difficulty speaking History of Present Illness: 71 year old female with a past medical DM, HTN, CVA, has an ACD, seizures presented to ER on 11/17/16 with B/L lower extremity weakness, tremors in the hands, and slurred speech. Patient on eliquis 2.5 bid. At around 4:35 brigitte zimmerman was called. Patient states that she was lying in bed and all of the sudden she felt heaviness of the right side of her body, she states that she is unable to move or get out of bed. A few minuets earlier nurse states she went to get up to go to the bathroom walked with assistance, half hr later when symptoms began. Denies headache, lightheadedness, chest pain, palpitations, dizziness, fever, chills, leg swellin Pt. was noted to be aphasic with difficulty getting words out but there is a suspicion that she may have been dysarthric, she had right arm/leg weakness with ?? right central facial weakness. Her NIHSS is documented to be 20 at the time brigitte zimmerman was called. I saw the patient at 6am, she appeared with BP of 137/82, HR of 80, regular. I examined the patient downstairs in radiology right afetr she had her head CT.Pt was awake, alert, oriented to place/person. She was mildly dysarthric , could follow 2 step commands. She c/o difficulty speaking and right arm/leg weakness but informed me that it was improving. She scored 5 on the NIHSS, as per Dr. Dior she was neurologically improving. As per the accompanying doctors description she was noted to be aphasic earlier but to my exam she was dysarthric. - Past Medical History [employer]: Yes: CVA, 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 due to microlithiasis, subclinical vs. perforated diverticulum. elev amylase lipase) Renal/: Yes: Renal Inusuff Psych: Yes: Anxiety Endocrine: Yes: Diabetes Mellitus - Past Surgical History Past Surgical History: Yes: AICD, Colonoscopy (04/2014 severe diverticulosis and adhesions w/sigmoid inflamm, int hemorr, hyperplastic polyps icv, melanosis coli ), Hysterectomy, Stent - Alcohol/Substance Use Hx Alcohol Use: No - Smoking History Smoking history: Former smoker Have you smoked in the past 12 months: No Aproximately how many cigarettes per day: 0 If you are a former smoker, when did you quit?: 1981 - Social History Usual Living Arrangement: Alone ADL: Independent Occupation: No checmical exposure in workplace. History of Recent Travel: No Home Medications - Allergies Allergies/Adverse Reactions: Allergies Allergy/AdvReac Type Severity Reaction Status Date / Time No Known Drug Allergies Allergy Verified 11/17/16 11:54 - Home Medications Home Medications: Ambulatory Orders Apixaban [Eliquis] 2.5 mg PO BID 04/18/16 Digoxin [Lanoxin -] 0.125 mg PO DAILY 04/18/16 Glipizide [Glipizide Xl] 5 mg PO DAILY 04/18/16 Lamotrigine 100 mg PO BID 04/18/16 Bupropion HCl [Wellbutrin Sr] 150 mg PO DAILY 11/17/16 Donepezil HCl [Aricept] 10 mg PO DAILY 11/17/16 Memantine HCl [Namenda -] 10 mg PO DAILY 11/17/16 Pramipexole Di-HCl [Mirapex] 0.25 mg PO DAILY 11/17/16 Carvedilol [Coreg -] 12.5 mg PO DAILY 11/18/16 Family Disease History - Family Disease History Family Disease History: [place]: Sister (Breast), Other: Son (CVA age 40) Physical Exam-Neuro Vital Signs: Vital Signs Temperature 98.2 F 11/19/16 02:00 Pulse Rate 111 H 11/19/16 02:00 Respiratory Rate 16 11/19/16 02:00 Blood Pressure 135/82 11/19/16 02:00 O2 Sat by Pulse Oximetry (%) 99 11/18/16 21:00 Labs: CBC, BMP 11/18/16 06:20 - Neuro Exam Level Of Consciousness: Yes: Alert Speech: Other (mild dysarthria) Dominant Hand: Right Cranial Nerves II-XII Intact: No (slight left diminished left angle of mouth) Gag: Present DTR's: 0 Left Achilles, 0 Right Achilles, 2+ Right Bicep, 2+ Right Tricep, 2+ Right Brachioradialis, 3+ Left Bicep, 3+ Left Tricep, 3+ Left Brachioradialis Response to light touch: Normal Response to pain prick: Normal Motor Strength: 4/5: Right Arm, Right Leg (IP-4/5, Quads-3/5(last night it was 5 /5 to my exam)), 5/5: Left Arm, Left Leg Gait: Deferred NIH Stroke Scale - Last Known Well Date/Time & Onset Symptom Onset Date: 11/21/16 - Initial Evaluation Level of consciousness: Alert Ask patient the month & their age: Answers Both Correctly Ask Patient to open & close eyes; make fist and let go.: Obeys Both Correctly Best gaze (horizontal eye movement): Normal Visual Field Testing: No Visual Loss Facial Palsy(Show teeth or raise eyebrows & close eyes: Minor Paralysis ( Flattened nasolabial fold, asymmetry on smiling). Motor Function - Left Arm: No Drift;extends limb 90 (or siting 45) degress & hold full 10 seconds Motor Function - Right Arm: Drift; holds 90(or 45) degress, but drifts down before full 10 seconds Motor Function - Left Leg: No Drift; leg holds 30 degree position for full 5 seconds. Motor Function - Right Leg: Some Effort against gravity Sensory (arms, legs, trunk, face): Normal; no sensory loss Best Language: No Aphasia; normal Dysarthria/Articulation: Mild to moderate dysarthria;slurs some words/ understood w/difficulty Extinction and Inattention: No abnormality - Total Score NIH Stroke Scale Score: 5 Imaging - Results Cat Scan: Report Reviewed (-I spoke to the radiologist supervisor elementary education who reported no scute changes on head CT and right parietal hypodensity was considered an artifact.), Image Reviewed (No evidence of acute ischemia/hge. to my exam.) Assessment/Plan Pt. with change in her neurologic status-she developed an aphasia(?? dysarthria ) and worsened right hemiparesis, upon initial exam pt had a NIHSS of 20, when i examined her at 6am she was scoring 5, a clear improvement(pls. see detailied examination). Given that pt. was improving she was deemed to be not a candidate for rTPA. As to the nature of event the differential includes a vertebro- basilar TIA, less likely an ant. circulation ischemic event and a partial seizure(she has a hx. of seizures. I discussed all details and plan with Ms Krystal Santana who is covering for Dr. Marlow. Plan: 1) CT Angiography of the cerebral vasculature-her creatining is 1.2, eDFR 44.9- i d/w radiologist supervisor elementary education who gave permission for administration of dye( [facility] followed by hydration. Pt. is willing to give consent for dye administration, i have d/w her. 2) Will give Eliquis 5mgx1 now and increase standing dose to 5mg bid. Given that it will take time for heparin to kick-in and she is already on Eliquis will keep her on Eliquis. She is also refusing i/v heparin, i explained pros/ cons of heparin vs Eliquis to pt. 3) In case these events are partial(focal) seizures will place pt. on Keppra, 500mg x 1 now and 500mg i/v 4 hours later, thereafter starting tomorrow on 500mg bid and d/c Lamotrigine. 4) She will have her CTA done today, I will obtain results from radiology and d/ w Ms. Santana in the afternoon. 5) In case pt. has further such events would transfer her to the stroke service at [facility] for care in the Stroke Unit. 6) Please do not hesitate to call me today for further assistance, i will check in on her via phone later today and with Ms. Santana. Thank you, Rosa Smith MD [phone]
[2016-11-19 07:23] LABS: INR 1.35 (0.82-1.09); PROTHROMBIN TIME (PATIENT) 14.9 SEC (9.98-11.88)
[2016-11-19 07:26] LABS: ACTIVATED PTT 37.2 SECONDS (26.9-34.4)
[2016-11-19] MEDS: glipiZIDE 5 MG TABLET (FP) PO SCH (07:30)
[2016-11-19 07:53] LABS: MAGNESIUM 1.6 mg/dL (1.8-2.4); PHOSPHOROUS 2.7 mg/dL (2.5-4.9)
[2016-11-19 07:55] LABS: TROPONIN I 0.03 ng/ml (0.00-0.05)
[2016-11-19 08:10] LABS: ALBUMIN 3.7 g/dl (3.4-5.0); ALK PHOS 120 U/L (45-117); ANION GAP 10 (8-16); CALCIUM 9.3 mg/dL (8.5-10.1); CO2 27 mmol/L (21-32); CREATININE 1.2 mg/dL (0.55-1.02); GLUCOSE,RANDOM 145 mg/dL (74-106); SGOT/AST 34 U/L (15-37); SGPT/ALT 25 U/L (12-78); TOT PROT 7.6 g/dl (6.4-8.2)
--- NOTE | 2016-11-19 08:27 | PN ---
Progress Note, Physician History of Present Illness: Ms. Mcleod is a 71 year old female with a significant past medical history of DM, HTN, stroke, seizure, who presents to the emergency department after she began having weakness ELSIE of legs, slurring of speach, and shaking of her R arm this morning around 1am. She decided not to present last night as it was not very bad at the time, but came in as it was much worse upon waking up this morning. The patient denies chest pain, shortness of breath, headache and dizziness. Denies fever, chills, nausea, vomit, diarrhea and constipation. Denies dysuria, frequency, urgency and hematuria. Allergies: NKDA Past surgical history:hysterectomy, left arm break Social history: prior smoking history of approx. 30 pack years PMD - Ele [facility] CAD-->PCI 2014 ICD 2014 Medical History Reviewed Condition Date Treating Physician Comments anxiety/depression atrial fibrillation CVA (2009) with right side weakness Diabetes mellitus, type II Diverticulitis/colitis Hyperlipidemia Hypertension Renal insufficiency seizures Systolic heart failure; s/p ICD 2014 CAD-->PCI 2015 ICD 2014 - Current Medication List Current Medications: Active Medications Acetaminophen (Tylenol -) 650 mg PO Q6H PRN PRN Reason: FEVER OR PAIN Acetaminophen (Tylenol -) 325 mg PO Q6H PRN PRN Reason: PAIN Apixaban (Eliquis -) 5 mg PO BID [facility] Last Admin: 11/19/16 07:00 Dose: 5 mg Apixaban (Eliquis -) 5 mg PO BID [facility] Bupropion HCl (Wellbutrin Xl -) 150 mg PO DAILY [facility] Last Admin: 11/18/16 10:03 Dose: 150 mg Carvedilol (Coreg -) 25 mg PO BID [facility] Last Admin: 11/18/16 21:37 Dose: 25 mg Donepezil HCl (Aricept -) 5 mg PO BID [facility] Last Admin: 11/18/16 21:37 Dose: 5 mg Glipizide (Glucotrol -) 5 mg PO DAILY@0700 [facility] Last Admin: 11/18/16 06:50 Dose: Not Given Labetalol HCl (Normodyne Injection -) 5 mg IVPUSH PRN PRN PRN Reason: For systolic BP >190 Lamotrigine (Lamictal -) 100 mg PO BID [facility] Last Admin: 08/05/17 21:37 Dose: 100 mg Memantine (Namenda -) 5 mg PO BID [facility] Last Admin: 11/18/16 21:37 Dose: 5 mg Oxycodone HCl (Roxicodone -) 5 mg PO Q6H PRN PRN Reason: PAIN Polyethylene Glycol (Miralax (For Daily Use) -) 17 gm PO DAILY [facility] Last Admin: 11/18/16 14:27 Dose: Not Given Pramipexole Dihydrochloride (Mirapex -) 0.125 mg PO HS [facility] Last Admin: 11/18/16 21:38 Dose: 0.125 mg - Objective Vital Signs: Vital Signs Temperature 98.3 F 11/19/16 06:00 Pulse Rate 117 H 11/19/16 06:00 Respiratory Rate 20 11/19/16 06:00 Blood Pressure 152/101 11/19/16 06:00 O2 Sat by Pulse Oximetry (%) 99 11/18/16 21:00 Eyes: Yes: WNL, Conjunctiva Clear, EOM Intact HENT: Yes: WNL, Atraumatic, Normocephalic Neck: Yes: WNL, Supple, Trachea Midline Cardiovascular: Yes: Pulse Irregular, Murmur, S1, S2 Respiratory: Yes: WNL, Regular, CTA Bilaterally Gastrointestinal: Yes: WNL, Normal Bowel Sounds Genitourinary: Yes: WNL Musculoskeletal: Yes: WNL Extremities: Yes: WNL Edema: No Integumentary: Yes: WNL Neurological: Yes: Alert, Aphasia, Facial Droop ...Motor Strength: WNL Psychiatric: Yes: WNL Labs: CBC, BMP 11/18/16 06:20 INR, PTT INR 1.35 (0.82-1.09) H 11/19/16 06:30 Problem List - Problems (1) Abdominal pain Code(s): R10.9 - UNSPECIFIED ABDOMINAL PAIN Qualifiers: Qualified Code(s): R10.84 - Generalized abdominal pain (2) Acute on chronic systolic and diastolic heart failure, NYHA class 4 Code(s): I50.43 - ACUTE ON CHRONIC COMBINED SYSTOLIC AND DIASTOLIC HRT FAIL (3) Atypical chest pain Code(s): R07.89 - OTHER CHEST PAIN (4) Coronary artery disease Code(s): I25.10 - ATHSCL HEART DISEASE OF [place] CORONARY ARTERY W/O ANG PCTRS Qualifiers: Qualified Code(s): I25.10 - Atherosclerotic heart disease of [place] coronary artery without angina pectoris (5) Elevated lactic acid level Code(s): E87.2 - ACIDOSIS (6) Elevated lipase Code(s): R74.8 - ABNORMAL LEVELS OF OTHER SERUM ENZYMES (7) Hyperkalemia Code(s): E87.5 - HYPERKALEMIA (8) Shortness of breath Code(s): R06.02 - SHORTNESS OF BREATH (9) Tachyarrhythmia Code(s): R00.0 - TACHYCARDIA, UNSPECIFIED (10) Weakness Code(s): R53.1 - WEAKNESS (11) Arrhythmia Code(s): I49.9 - CARDIAC ARRHYTHMIA, UNSPECIFIED (12) Cardiomegaly Code(s): I51.7 - CARDIOMEGALY (13) Diabetes mellitus Code(s): E11.9 - TYPE 2 DIABETES MELLITUS WITHOUT COMPLICATIONS (14) Acute CVA (cerebrovascular accident) Code(s): I63.9 - CEREBRAL INFARCTION, UNSPECIFIED (15) Acute coronary syndrome Code(s): I24.9 - ACUTE ISCHEMIC HEART DISEASE, UNSPECIFIED (16) Vtqsc-sw-dtzetmx renal failure Code(s): N17.9 - ACUTE KIDNEY FAILURE, UNSPECIFIED N18.9 - CHRONIC KIDNEY DISEASE, UNSPECIFIED (17) Anasarca Code(s): R60.1 - GENERALIZED EDEMA (18) Anemia Code(s): D64.9 - ANEMIA, UNSPECIFIED Qualifiers: Qualified Code(s): D63.8 - Anemia in other chronic diseases classified elsewhere (19) Ascites Code(s): R18.8 - OTHER ASCITES Qualifiers: Qualified Code(s): R18.8 - Other ascites (20) Asterixis Code(s): R27.8 - OTHER LACK OF COORDINATION (21) Atrial fibrillation and flutter Code(s): I48.91 - UNSPECIFIED ATRIAL FIBRILLATION I48.92 - UNSPECIFIED ATRIAL FLUTTER (22) Atrial fibrillation with RVR Code(s): I48.91 - UNSPECIFIED ATRIAL FIBRILLATION (23) Atrial flutter Code(s): I48.92 - UNSPECIFIED ATRIAL FLUTTER (24) CAP (community acquired pneumonia) Code(s): J18.9 - PNEUMONIA, UNSPECIFIED ORGANISM (25) CHF (congestive heart failure) Code(s): I50.9 - HEART FAILURE, UNSPECIFIED (26) CHF exacerbation Code(s): I50.9 - HEART FAILURE, UNSPECIFIED (27) CVA (cerebral vascular accident) Code(s): I63.9 - CEREBRAL INFARCTION, UNSPECIFIED (28) Cardiac cirrhosis Code(s): K76.1 - CHRONIC PASSIVE CONGESTION OF LIVER (29) Chest pain at rest Code(s): R07.9 - CHEST PAIN, UNSPECIFIED (30) Chronic leukopenia Code(s): D72.819 - DECREASED WHITE BLOOD CELL COUNT, UNSPECIFIED (31) DVT prophylaxis Code(s): KET5398 - (32) Dehydration Code(s): E86.0 - DEHYDRATION (33) Dementia Code(s): F03.90 - UNSPECIFIED DEMENTIA WITHOUT BEHAVIORAL DISTURBANCE (34) Diarrhea Code(s): R19.7 - DIARRHEA, UNSPECIFIED (35) Elevated CA-125 Code(s): R97.1 - ELEVATED CANCER ANTIGEN 125 [CA 125] (36) Elevated troponin Code(s): R74.8 - ABNORMAL LEVELS OF OTHER SERUM ENZYMES (37) GI bleed Code(s): K92.2 - GASTROINTESTINAL HEMORRHAGE, UNSPECIFIED Qualifiers: Qualified Code(s): K62.5 - Hemorrhage of anus and rectum (38) Hemorrhoids Code(s): K64.9 - UNSPECIFIED HEMORRHOIDS Qualifiers: Qualified Code(s): K64.2 - Third degree hemorrhoids (39) Hyperglycemia Code(s): R73.9 - HYPERGLYCEMIA, UNSPECIFIED (40) Hyperlipidemia Code(s): E78.5 - HYPERLIPIDEMIA, UNSPECIFIED (41) ICD (implantable cardioverter-defibrillator) in place Code(s): Z95.810 - PRESENCE OF AUTOMATIC (IMPLANTABLE) CARDIAC DEFIBRILLATOR (42) Mitral regurgitation and aortic stenosis Code(s): I08.0 - RHEUMATIC DISORDERS OF BOTH MITRAL AND AORTIC VALVES (43) NSTEMI (non-ST elevated myocardial infarction) Code(s): I21.4 - NON-ST ELEVATION (NSTEMI) MYOCARDIAL INFARCTION (44) Pancreatitis Code(s): K85.9 - ACUTE PANCREATITIS, UNSPECIFIED * DO NOT USE * (45) Paroxysmal atrial fibrillation Code(s): I48.0 - PAROXYSMAL ATRIAL FIBRILLATION (46) Partial symptomatic epilepsy with complex partial seizures, not intractable , with status epilepticus Code(s): G40.201 - LOCAL-REL SYMPTC EPI W CMPLX PRT SEIZ, NOT NTRCT, W STAT EPI (47) Pleural effusion Code(s): J90 - PLEURAL EFFUSION, NOT ELSEWHERE CLASSIFIED (48) Poor appetite Code(s): R63.0 - ANOREXIA (49) Pulmonary embolism Code(s): I26.99 - OTHER PULMONARY EMBOLISM WITHOUT ACUTE COR PULMONALE (50) Pulmonary hypertension Code(s): I27.2 - OTHER SECONDARY PULMONARY HYPERTENSION (51) Rapid atrial fibrillation Code(s): I48.91 - UNSPECIFIED ATRIAL FIBRILLATION (52) Rash and nonspecific skin eruption Code(s): R21 - RASH AND OTHER NONSPECIFIC SKIN ERUPTION (53) Systolic and diastolic CHF w/reduced LV function, NYHA class 4 Code(s): I50.40 - UNSP COMBINED SYSTOLIC AND DIASTOLIC (CONGESTIVE) HRT FAIL (54) TIA (transient ischemic attack) Code(s): G45.9 - TRANSIENT CEREBRAL ISCHEMIC ATTACK, UNSPECIFIED (55) Anxiety and depression Code(s): F41.8 - OTHER SPECIFIED ANXIETY DISORDERS (56) Atrial fibrillation Code(s): I48.91 - UNSPECIFIED ATRIAL FIBRILLATION Qualifiers: Qualified Code(s): I48.2 - Chronic atrial fibrillation (57) CKD (chronic kidney disease) Code(s): N18.9 - CHRONIC KIDNEY DISEASE, UNSPECIFIED Qualifiers: Qualified Code(s): N18.9 - Chronic kidney disease, unspecified (58) History of CVA (cerebrovascular accident) Code(s): Z86.73 - PRSNL HX OF TIA (TIA), AND CEREB INFRC W/O RESID DEFICITS (59) Hypertension Code(s): I10 - ESSENTIAL (PRIMARY) HYPERTENSION Qualifiers: Qualified Code(s): I10 - Essential (primary) hypertension (60) Renal mass Code(s): N28.89 - OTHER SPECIFIED DISORDERS OF KIDNEY AND URETER (61) Seizure disorder Code(s): G40.909 - EPILEPSY, UNSP, NOT INTRACTABLE, WITHOUT STATUS EPILEPTICUS Assessment/Plan acute CVA HTN CAD-->PCI 2015 ICD 2015 anxiety/depression atrial fibrillation CVA (2009) with right side weakness Diabetes mellitus, type II Diverticulitis/colitis Hyperlipidemia Hypertension Renal insufficiency seizures Systolic heart failure; s/p ICD 2014 CAD-->PCI 2014 ICD 2014 Plan; Neurology consult cont ac neuro eval cont telemetry
[2016-11-19] MEDS: MAGNESIUM OXIDE 400 MG TABLET (FP) PO SCH ×2 (10:25→21:30)
[2016-11-19] MEDS: MEMANTINE HCL 5 MG TABLET (UD) PO SCH ×2 (10:25→21:30)
[2016-11-19] MEDS: DONEPEZIL HCL 5 MG TABLET (FP) PO SCH ×2 (10:25→21:30)
[2016-11-19] MEDS: CARVEDILOL 25 MG TABLET (FP) PO SCH ×2 (10:25→21:30)
[2016-11-19] MEDS: POLYETHYLENE GLYCOL 3350 119 GM BTL PO SCH (10:26)
--- NOTE | 2016-11-19 18:18 | PN ---
Progress Note, Physician Chief Complaint: Weakness History of Present Illness: 71 yo F history DM, HTN, CVA, seizures presents with B/L lower extremity weakness, tremors in the hands, and slurred speech. She states the symptoms started around 1am, but she did not seek evaluation until now, as they worsened when she woke up this morning. She has had similar symptoms in the past. She went to Dr. Marlow's office this morning, who sent her to ED for evaluation. seen walking in the hallway with the cane, feels much better. was seen by neurology this AM, who ordered CTA due to an acute episode of weakness, dysarthria vs dysphasia early this AM. CTA showed atheromatous calcified plaque in the BL cavernous carotid arteries and distal vertebral arteries. She was started on Keppra this AM by neurologist. Also seen by cardiology. - Current Medication List Current Medications: Active Medications Acetaminophen (Tylenol -) 650 mg PO Q6H PRN PRN Reason: FEVER OR PAIN Acetaminophen (Tylenol -) 325 mg PO Q6H PRN PRN Reason: PAIN Apixaban (Eliquis -) 5 mg PO BID [facility] Last Admin: 11/19/16 10:25 Dose: Not Given Apixaban (Eliquis -) 5 mg PO BID [facility] Last Admin: 11/19/16 10:25 Dose: Not Given Bupropion HCl (Wellbutrin Xl -) 150 mg PO DAILY [facility] Last Admin: 11/19/16 10:24 Dose: 150 mg Carvedilol (Coreg -) 25 mg PO BID [facility] Last Admin: 11/19/16 10:25 Dose: 25 mg Donepezil HCl (Aricept -) 5 mg PO BID [facility] Last Admin: 11/19/16 10:25 Dose: 5 mg Glipizide (Glucotrol -) 5 mg PO DAILY@0700 [facility] Last Admin: 11/19/16 07:30 Dose: Not Given Labetalol HCl (Normodyne Injection -) 5 mg IVPUSH PRN PRN PRN Reason: For systolic BP >190 Levetiracetam (Keppra Injection -) 500 mg IVPB BID [facility] Magnesium Oxide (Mag-Ox -) 400 mg PO BID [facility] Last Admin: 11/19/16 10:25 Dose: 400 mg Memantine (Namenda -) 5 mg PO BID [facility] Last Admin: 11/19/16 10:25 Dose: 5 mg Oxycodone HCl (Roxicodone -) 5 mg PO Q6H PRN PRN Reason: PAIN Polyethylene Glycol (Miralax (For Daily Use) -) 17 gm PO DAILY [facility] Last Admin: 11/19/16 10:26 Dose: Not Given Pramipexole Dihydrochloride (Mirapex -) 0.125 mg PO HS [facility] Last Admin: 11/18/16 21:38 Dose: 0.125 mg - Objective Vital Signs: Vital Signs Temperature 98 F 11/19/16 18:12 Pulse Rate 114 H 11/19/16 18:12 Respiratory Rate 20 11/19/16 18:12 Blood Pressure 109/77 11/19/16 18:12 O2 Sat by Pulse Oximetry (%) 99 11/19/16 08:00 Constitutional: Yes: Well Nourished, No Distress, Calm Cardiovascular: Yes: Regular Rate and Rhythm Respiratory: Yes: Regular Gastrointestinal: Yes: Normal Bowel Sounds Labs: CBC, BMP 11/18/16 06:20 11/19/16 06:30 INR, PTT INR 1.35 (0.82-1.09) H 11/19/16 06:30 Problem List - Problems (1) Weakness Assessment/Plan: right arm- resolved walking in the hallway with the cane Code(s): R53.1 - WEAKNESS (2) CVA (cerebral vascular accident) Code(s): I63.9 - CEREBRAL INFARCTION, UNSPECIFIED (3) Acute prerenal azotemia Assessment/Plan: -seen by nephrology -renal U/S insignificant Code(s): R79.89 - OTHER SPECIFIED ABNORMAL FINDINGS OF BLOOD CHEMISTRY (4) Slurred speech Assessment/Plan: resolved Code(s): R47.81 - SLURRED SPEECH Assessment/Plan CVA vs TIA CTA neurology consult seen by nephrology, stable at the moment d/c home if stable on keppra and as per neurology
--- NOTE | 2016-11-19 18:41 | PN ---
Progress Note (short form) - Note Progress Note: tia ckd dm htn h/o cva Current Medications Acetaminophen (Tylenol -) 650 mg PO Q6H PRN PRN Reason: FEVER OR PAIN Acetaminophen (Tylenol -) 325 mg PO Q6H PRN PRN Reason: PAIN Apixaban (Eliquis -) 5 mg PO BID [facility] Last Admin: 11/19/16 10:25 Dose: Not Given Apixaban (Eliquis -) 5 mg PO BID [facility] Last Admin: 11/19/16 10:25 Dose: Not Given Bupropion HCl (Wellbutrin Xl -) 150 mg PO DAILY [facility] Last Admin: 11/19/16 10:24 Dose: 150 mg Carvedilol (Coreg -) 25 mg PO BID [facility] Last Admin: 11/19/16 10:25 Dose: 25 mg Donepezil HCl (Aricept -) 5 mg PO BID [facility] Last Admin: 11/19/16 10:25 Dose: 5 mg Glipizide (Glucotrol -) 5 mg PO DAILY@0700 [facility] Last Admin: 11/19/16 07:30 Dose: Not Given Labetalol HCl (Normodyne Injection -) 5 mg IVPUSH PRN PRN PRN Reason: For systolic BP >190 Levetiracetam (Keppra Injection -) 500 mg IVPB BID [facility] Magnesium Oxide (Mag-Ox -) 400 mg PO BID [facility] Last Admin: 11/19/16 10:25 Dose: 400 mg Memantine (Namenda -) 5 mg PO BID [facility] Last Admin: 11/19/16 10:25 Dose: 5 mg Oxycodone HCl (Roxicodone -) 5 mg PO Q6H PRN PRN Reason: PAIN Polyethylene Glycol (Miralax (For Daily Use) -) 17 gm PO DAILY [facility] Last Admin: 11/19/16 10:26 Dose: Not Given Pramipexole Dihydrochloride (Mirapex -) 0.125 mg PO HS [facility] Last Admin: 11/18/16 21:38 Dose: 0.125 mg Last Vital Signs Temp Pulse Resp BP Pulse Ox 98 F 114 H 20 109/77 99 11/19/16 18:12 11/19/16 18:12 11/19/16 18:12 11/19/16 18:12 11/19/16 08:00 lungs clear heart s1s2 Abd soft nontender ext no edema CBC, BMP 11/18/16 06:20 11/19/16 06:30 IMP CKD s/p GERRI on CKD - improved Plan- follow uo sono of kidneys and bladder (results are still pending) Problem List - Problems (1) Acute prerenal azotemia Code(s): R79.89 - OTHER SPECIFIED ABNORMAL FINDINGS OF BLOOD CHEMISTRY
[2016-11-19] MEDS ORDERED: PT OWN MED DRAWER 7, Y5N ONE (21:26)
[2016-11-19] MEDS: PRAMIPEXOLE DIHYDROCHLORIDE 0.125 MG TABLET PO SCH (21:30)
[2016-11-20] MEDS: glipiZIDE 5 MG TABLET (FP) PO SCH (06:48)
[2016-11-20 07:34] LABS: EOSINOPHIL 2.3 % (0-4.5); MCH 30.2 pg (25.7-33.7); MCHC 32.9 g/dl (32.0-36.0); MEAN CELL VOLUME 91.8 fl (80-96); MEAN PLT VOLUME 8.4 fl (7.5-11.1); NEUTROPHILS 60.9 % (42.8-82.8); PLATELET COUNT 189 K/MM3 (134-434); RDW 14.1 % (11.6-15.6)
[2016-11-20 07:51] LABS: THYROID STIMULATING HORMONE 1.21 uIU/ml (0.358-3.74)
--- NOTE | 2016-11-20 09:27 | PN ---
Progress Note (short form) - Note Progress Note: HPI: 71 year old female with a past medical DM, HTN, CVA, has an ACD, seizures presented to ER on 11/17/16 with B/L lower extremity weakness, tremors in the hands, and slurred speech. Patient on eliquis 2.5 bid. At around 4:35 brigitte zimmerman was called. Patient states that she was lying in bed and all of the sudden she felt heaviness of the right side of her body, she states that she is unable to move or get out of bed. A few minuets earlier nurse states she went to get up to go to the bathroom walked with assistance, half hr later when symptoms began. Denies headache, lightheadedness, chest pain, palpitations, dizziness, fever, chills, leg swelling Pt. was noted to be aphasic with difficulty getting words out but there is a suspicion that she may have been dysarthric, she had right arm/leg weakness with ?? right central facial weakness. Her NIHSS is documented to be 20 at the time brigitte zimmerman was called. see on 11/18/16 6am, she appeared with BP of 137/82, HR of 80, regular. I examined the patient downstairs in radiology right afetr she had her head CT.Pt was awake, alert, oriented to place/person. She was mildly dysarthric , could follow 2 step commands. She c/o difficulty speaking and right arm/leg weakness but informed me that it was improving. She scored 5 on the NIHSS, as per Dr. Dior she was neurologically improving. As per the accompanying doctors description she was noted to be aphasic earlier but to my exam she was dysarthric. FU : feels much better now, HX of seizures on lamictal -- 100BID , typical sz may become tremulous and speech issues, 2 seizures this month, sees DR Pak CTA reviewed. IMPRESSION: Atheromatous calcified plaques in the cavernous carotid artery, bilaterally as well as in the intradural portion of both distal vertebral arteries. Otherwise, no gross focal stenosis, aneurysm, major artery cutoff or vascular malformation is identified within the central intracranial arterial circulation. 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 due to microlithiasis, subclinical vs. perforated diverticulum. elev amylase lipase) Renal/: Yes: Renal Inusuff Psych: Yes: Anxiety Endocrine: Yes: Diabetes Mellitus - Past Surgical History Past Surgical History: Yes: AICD, Colonoscopy (04/2014 severe diverticulosis and adhesions w/sigmoid inflamm, int hemorr, hyperplastic polyps icv, melanosis coli ), Hysterectomy, Stent - Alcohol/Substance Use Hx Alcohol Use: No - Smoking History Smoking history: Former smoker Have you smoked in the past 12 months: No Aproximately how many cigarettes per day: 0 If you are a former smoker, when did you quit?: 1981 - Social History Usual Living Arrangement: Alone ADL: Independent Occupation: No checmical exposure in workplace. History of Recent Travel: No Home Medications - Allergies Allergies/Adverse Reactions: Allergies Allergy/AdvReac Type Severity Reaction Status Date / Time No Known Drug Allergies Allergy Verified 11/17/16 11:54 - Home Medications Home Medications: Ambulatory Orders Apixaban [Eliquis] 2.5 mg PO BID 04/18/16 Digoxin [Lanoxin -] 0.125 mg PO DAILY 04/18/16 Glipizide [Glipizide Xl] 5 mg PO DAILY 04/18/16 Lamotrigine 100 mg PO BID 04/18/16 Bupropion HCl [Wellbutrin Sr] 150 mg PO DAILY 11/17/16 Donepezil HCl [Aricept] 10 mg PO DAILY 11/17/16 Memantine HCl [Namenda -] 10 mg PO DAILY 11/17/16 Pramipexole Di-HCl [Mirapex] 0.25 mg PO DAILY 11/17/16 Carvedilol [Coreg -] 12.5 mg PO DAILY 11/18/16 Family Disease History - Family Disease History Family Disease History: CA: Sister (Breast), Other: Son (CVA age 40) Physical Exam-Neuro Vital Signs: Vital Signs Temperature 97.5 F L 11/20/16 08:00 Pulse Rate 118 H 11/20/16 08:00 Respiratory Rate 18 11/20/16 09:00 Blood Pressure 120/86 11/20/16 08:00 O2 Sat by Pulse Oximetry (%) 99 11/20/16 09:00 Labs: CBCD WBC 5.0 K/mm3 (4.0-10.0) D 11/20/16 06:30 RBC 4.08 M/mm3 (3.60-5.2) 11/20/16 06:30 Hgb 12.3 GM/dL (10.7-15.3) 11/20/16 06:30 Hct 37.4 % (32.4-45.2) 11/20/16 06:30 MCV 91.8 fl (80-96) 11/20/16 06:30 MCHC 32.9 g/dl (32.0-36.0) 11/20/16 06:30 RDW 14.1 % (11.6-15.6) 11/20/16 06:30 Plt Count 189 K/MM3 (134-434) 11/20/16 06:30 MPV 8.4 fl (7.5-11.1) 11/20/16 06:30 CMP Sodium 140 mmol/L (136-145) 11/19/16 06:30 Potassium 4.1 mmol/L (3.5-5.1) 11/19/16 06:30 Chloride 103 mmol/L (98-107) 11/19/16 06:30 Carbon Dioxide 27 mmol/L (21-32) 11/19/16 06:30 Anion Gap 10 (8-16) 11/19/16 06:30 BUN 15 mg/dL (7-18) 11/19/16 06:30 Creatinine 1.2 mg/dL (0.55-1.02) H 11/19/16 06:30 Creat Clearance w eGFR 44.29 (>60) 11/19/16 06:30 Calcium 9.3 mg/dL (8.5-10.1) 11/19/16 06:30 Total Bilirubin 1.0 mg/dL (0.2-1.0) 11/19/16 06:30 AST 34 U/L (15-37) 11/19/16 06:30 ALT 25 U/L (12-78) 11/19/16 06:30 Alkaline Phosphatase 120 U/L (45-117) H 11/19/16 06:30 Total Protein 7.6 g/dl (6.4-8.2) 11/19/16 06:30 Albumin 3.7 g/dl (3.4-5.0) 11/19/16 06:30 - Neuro Exam Level Of Consciousness: Yes: Alert Speech: Other (mild dysarthria) Dominant Hand: Right Cranial Nerves II-XII Intact: No (slight left diminished left angle of mouth) Gag: Present DTR's: 0 Left Achilles, 0 Right Achilles, 2+ Right Bicep, 2+ Right Tricep, 2+ Right Brachioradialis, 3+ Left Bicep, 3+ Left Tricep, 3+ Left Brachioradialis Response to light touch: Normal Response to pain prick: Normal Motor Strength: 4/5: Right Arm, Right Leg (IP-4/5, Quads-3/5(last night it was 5 /5 to my exam)), 5/5: Left Arm, Left Leg Gait: Deferred NIH Stroke Scale - Last Known Well Date/Time & Onset Symptom Onset Date: 11/21/16 - Initial Evaluation Level of consciousness: Alert Ask patient the month & their age: Answers Both Correctly Ask Patient to open & close eyes; make fist and let go.: Obeys Both Correctly Best gaze (horizontal eye movement): Normal Visual Field Testing: No Visual Loss Facial Palsy(Show teeth or raise eyebrows & close eyes: Minor Paralysis ( Flattened nasolabial fold, asymmetry on smiling). Motor Function - Left Arm: No Drift;extends limb 90 (or siting 45) degress & hold full 10 seconds Motor Function - Right Arm: Drift; holds 90(or 45) degress, but drifts down before full 10 seconds Motor Function - Left Leg: No Drift; leg holds 30 degree position for full 5 seconds. Motor Function - Right Leg: Some Effort against gravity Sensory (arms, legs, trunk, face): Normal; no sensory loss Best Language: No Aphasia; normal Dysarthria/Articulation: Mild to moderate dysarthria;slurs some words/ understood w/difficulty Extinction and Inattention: No abnormality - Total Score NIH Stroke Scale Score: 5 Imaging - Results Cat Scan: Report Reviewed (-I spoke to the radiologist orthodontic laboratory technician who reported no scute changes on head CT and right parietal hypodensity was considered an artifact.), Image Reviewed (No evidence of acute ischemia/hge. to my exam.) Assessment/Plan Pt. with change in her neurologic status-she developed an aphasia(?? dysarthria ) and worsened right hemiparesis, upon initial exam pt had a NIHSS of 20, when i examined her at 6am she was scoring 5, a clear improvement(pls. see detailied examination). Given that pt. was improving she was deemed to be not a candidate for rTPA. As to the nature of event the differential includes a vertebro- basilar TIA, less likely an ant. circulation ischemic event and a partial seizure(she has a hx. of seizures. much better this AM suspect this was a seizure increased dose of eliquis ( ? post vascular events, cant get MRI) , no clear symptomatic vessel started on keppra 500BID ( watch creatinine) and would continue LAMICTAL Dr Rincon
[2016-11-20] MEDS: CARVEDILOL 25 MG TABLET (FP) PO SCH ×2 (09:38→21:38)
[2016-11-20] MEDS: MEMANTINE HCL 5 MG TABLET (UD) PO SCH ×2 (09:38→21:39)
[2016-11-20] MEDS: APIXABAN 5 MG TABLET PO SCH ×2 (09:38→21:39)
[2016-11-20] MEDS: MAGNESIUM OXIDE 400 MG TABLET (FP) PO SCH ×2 (09:38→21:38)
[2016-11-20] MEDS: levETIRAcetam 500 MG/5 ML INJECTION VIAL IVPB SCH ×2 (09:38→21:39)
[2016-11-20] MEDS: DONEPEZIL HCL 5 MG TABLET (FP) PO SCH ×2 (09:38→21:38)
--- NOTE | 2016-11-20 10:20 | CONSULT ---
Admitting History and Physical - Primary Care Physician PCP: Kei Marlow - Admission History of Present Illness: Per neurology: "HX of seizures on lamictal -- 100BID , typical sz may become tremulous and speech issues, 2 seizures this month, sees DR Pak CTA reviewed. IMPRESSION: Atheromatous calcified plaques in the cavernous carotid artery, bilaterally as well as in the intradural portion of both distal vertebral arteries. Otherwise, no gross focal stenosis, aneurysm, major artery cutoff or vascular malformation is identified within the central intracranial arterial circulation. 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 due to microlithiasis, subclinical vs. perforated diverticulum. elev amylase lipase) Renal/: Yes: Renal Inusuff Psych: Yes: Anxiety Endocrine: Yes: Diabetes Mellitus - Past Surgical History Past Surgical History: Yes: AICD, Colonoscopy (04/2014 severe diverticulosis and adhesions w/sigmoid inflamm, int hemorr, hyperplastic polyps icv, melanosis coli ), Hysterectomy, Stent - Smoking History Smoking history: Former smoker Have you smoked in the past 12 months: No Aproximately how many cigarettes per day: 0 If you are a former smoker, when did you quit?: 1982 - Alcohol/Substance Use Hx Alcohol Use: No - Social History ADL: Independent Occupation: No checmical exposure in workplace. History of Recent Travel: No History - Admission Reason For Visit: STROKE; WEAKNESS - Diagnostics X-ray: Report Reviewed CT Scan: Report Reviewed Modified Barium Swallow: Report Reviewed (last mbs 05/31/16. c5-6 osteophyte, Impaired laryngeal elevation/epiglottic inversion, with stasis of solids in pharynx.) - General Mental Status: Alert and Oriented, Able to Follow Commands, Forgetful (at baseline) Attention: Intact Ability to Follow Directions: Good Head/Neck Control: WFL - Hearing Hearing: Functional Speech Evaluation - Communication Primary Language: EMIRATI Communication: Yes: Within Normal Limits Oral Expression Ability: Yes: No Impairment - Speech Production Apraxia: No Able to Make Needs Known: Yes: WNL Intelligibility: Yes: WNL - Speech Characteristics Voice Loudness: Normal Voice Pitch: Yes: Normal Voice Phonatory-based Quality: Yes: Hoarse (mild) Speech Pattern: Normal Speech Clarity: < 100% Nasal Resonance: Normal Articulation: Yes: Precise Rate of Speech: Intact - Language/Auditory Comprehension Follows: Yes: 2 Stage Simple Commands Observation: Comprehends Conversational Speech: Yes - Language/Verbal Expression Able to Respond to Simple Queries: Yes: WNL Able to Communicate Wants and Needs: Yes: WNL Functional Communication Status: Yes: WNL - Swallow Evaluation/Bedside Assessment Current Nutritional Intake: Dysphagia Whole, Thin Liquids Oral Secretions: Yes: WFL Dentition: Yes: Missing Teeth Facial Symmetry at Rest: Symmetrical Facial Symmetry on Retraction: Symmetrical Facial Movement: Controlled Against Resistance Opening: Normal Against Resistance Closing: Normal Pucker Lips: Normal Smile: Normal Lingual Movement: Normal, Symmetric Lingual Speed of Movement: Normal Lingual Movement Strgth Against Opposition: Normal Lingual Movement Characteristics: Normal Velopharyngeal Movement: Normal Laryngeal Elevation: Impaired Laryngeal Movement: Able to Palpate, Reduced Excursion, Reduced Velocity Rate of Intake: WFL Bolus Size: WFL Labial Seal: WFL Oral Prep Time: WFL A-P Transit: WFL Pocketing: None Coughing/Throat Clear: No Change in Voice: No Recommendations - Speech Evaluation, Impression/Plan Impression: Pt well known to me from previous swallowing evaluations as an out pt. Pt with moderate dysphagia, last mbs 05/31/16. c5-6 osteophyte,Impaired laryngeal elevation/epiglottic inversion, with stasis of solids in pharynx. Swallowing tx rec but no follow through, likely because of memory deficits. She reports solids do come back up at times, but denies PNA, weight loss,need for Heimlich. Speech/Swallowing function at baseline. Memory deficits at baseline - Disposition Discharge to: To be Determined (Swallowing tx upon d/c-homecare/[facility] opd) - Dysphagia Impressions/Plan Swallowing Skills: Impaired Dysphagia Impressions: Moderate Impairment *Silent aspiration: cannot be R/O at bedside Recommendations: Other (Very soft foods, or cut up small. Pt doesnt want chopped food. Effortful swallow, with chin tuck, twice to three times, follow with sip of liquid.) - Recommendations Diet Consistency: Dysphagia Whole Medication Administration: Crushed with applesauce Liquids: Thin Liquids
[2016-11-20] MEDS: POLYETHYLENE GLYCOL 3350 119 GM BTL PO SCH (10:27)
--- NOTE | 2016-11-20 11:22 | PN ---
Progress Note, Physician History of Present Illness: Ms. Mcleod is a 71 year old female with a significant past medical history of DM, HTN, stroke, seizure, who presents to the emergency department after she began having weakness ELSIE of legs, slurring of speach, and shaking of her R arm this morning around 1am. She decided not to present last night as it was not very bad at the time, but came in as it was much worse upon waking up this morning. The patient denies chest pain, shortness of breath, headache and dizziness. Denies fever, chills, nausea, vomit, diarrhea and constipation. Denies dysuria, frequency, urgency and hematuria. Allergies: NKDA Past surgical history:hysterectomy, left arm break Social history: prior smoking history of approx. 30 pack years PMD - Ele [facility] CAD-->PCI 2014 ICD 2014 Medical History Reviewed Condition Date Treating Physician Comments anxiety/depression atrial fibrillation CVA (2009) with right side weakness Diabetes mellitus, type II Diverticulitis/colitis Hyperlipidemia Hypertension Renal insufficiency seizures Systolic heart failure; s/p ICD 2014 CAD-->PCI 2015 ICD 2014 - Current Medication List Current Medications: Active Medications Acetaminophen (Tylenol -) 650 mg PO Q6H PRN PRN Reason: FEVER OR PAIN Acetaminophen (Tylenol -) 325 mg PO Q6H PRN PRN Reason: PAIN Apixaban (Eliquis -) 5 mg PO BID [facility] Last Admin: 11/20/16 09:38 Dose: 5 mg Bupropion HCl (Wellbutrin Xl -) 150 mg PO DAILY [facility] Last Admin: 11/20/16 09:38 Dose: 150 mg Carvedilol (Coreg -) 25 mg PO BID [facility] Last Admin: 11/20/16 09:38 Dose: 25 mg Donepezil HCl (Aricept -) 5 mg PO BID [facility] Last Admin: 11/20/16 09:38 Dose: 5 mg Glipizide (Glucotrol -) 5 mg PO DAILY@0700 [facility] Last Admin: 11/20/16 06:48 Dose: Not Given Labetalol HCl (Normodyne Injection -) 5 mg IVPUSH PRN PRN PRN Reason: For systolic BP >190 Levetiracetam (Keppra Injection -) 500 mg IVPB BID [facility] Last Admin: 11/20/16 09:38 Dose: 500 mg Magnesium Oxide (Mag-Ox -) 400 mg PO BID [facility] Last Admin: 11/20/16 09:38 Dose: 400 mg Memantine (Namenda -) 5 mg PO BID [facility] Last Admin: 11/20/16 09:38 Dose: 5 mg Oxycodone HCl (Roxicodone -) 5 mg PO Q6H PRN PRN Reason: PAIN Polyethylene Glycol (Miralax (For Daily Use) -) 17 gm PO DAILY [facility] Last Admin: 11/19/16 10:26 Dose: Not Given Pramipexole Dihydrochloride (Mirapex -) 0.125 mg PO HS [facility] Last Admin: 11/19/16 21:30 Dose: 0.125 mg - Objective Vital Signs: Vital Signs Temperature 97.5 F L 11/20/16 08:00 Pulse Rate 118 H 11/20/16 08:00 Respiratory Rate 18 11/20/16 09:00 Blood Pressure 120/86 11/20/16 08:00 O2 Sat by Pulse Oximetry (%) 99 11/20/16 09:00 Eyes: Yes: WNL, Conjunctiva Clear, EOM Intact HENT: Yes: WNL, Atraumatic, Normocephalic Neck: Yes: WNL, Supple, Trachea Midline Cardiovascular: Yes: Pulse Irregular, Murmur, S1, S2 Respiratory: Yes: WNL, Regular, CTA Bilaterally Gastrointestinal: Yes: WNL, Normal Bowel Sounds Genitourinary: Yes: WNL Musculoskeletal: Yes: WNL Extremities: Yes: WNL Edema: No Integumentary: Yes: WNL Neurological: Yes: Alert, Oriented, Weakness ...Motor Strength: WNL Psychiatric: Yes: WNL Labs: CBC, BMP 11/20/16 06:30 11/19/16 06:30 INR, PTT INR 1.35 (0.82-1.09) H 11/19/16 06:30 Problem List - Problems (1) Abdominal pain Code(s): R10.9 - UNSPECIFIED ABDOMINAL PAIN Qualifiers: Abdominal location: generalized Qualified Code(s): R10.84 - Generalized abdominal pain (2) Acute on chronic systolic and diastolic heart failure, NYHA class 4 Code(s): I50.43 - ACUTE ON CHRONIC COMBINED SYSTOLIC AND DIASTOLIC HRT FAIL (3) Atypical chest pain Code(s): R07.89 - OTHER CHEST PAIN (4) Coronary artery disease Code(s): I25.10 - ATHSCL HEART DISEASE OF [place] CORONARY ARTERY W/O ANG PCTRS Qualifiers: Coronary Disease-Associated Artery/Lesion type: [place]into artery [place] vs. transplanted heart: minto heart Associated angina: without angina Qualified Code(s): I25.10 - Atherosclerotic heart disease of [place] coronary artery without angina pectoris (5) Elevated lactic acid level Code(s): E87.2 - ACIDOSIS (6) Elevated lipase Code(s): R74.8 - ABNORMAL LEVELS OF OTHER SERUM ENZYMES (7) Hyperkalemia Code(s): E87.5 - HYPERKALEMIA (8) Shortness of breath Code(s): R06.02 - SHORTNESS OF BREATH (9) Tachyarrhythmia Code(s): R00.0 - TACHYCARDIA, UNSPECIFIED (10) Weakness Code(s): R53.1 - WEAKNESS (11) Arrhythmia Code(s): I49.9 - CARDIAC ARRHYTHMIA, UNSPECIFIED (12) Cardiomegaly Code(s): I51.7 - CARDIOMEGALY (13) Diabetes mellitus Code(s): E11.9 - TYPE 2 DIABETES MELLITUS WITHOUT COMPLICATIONS Qualifiers: Diabetes mellitus type: type 2 Diabetes mellitus complication status: with other specified complication (14) Acute CVA (cerebrovascular accident) Code(s): I63.9 - CEREBRAL INFARCTION, UNSPECIFIED (15) Acute coronary syndrome Code(s): I24.9 - ACUTE ISCHEMIC HEART DISEASE, UNSPECIFIED (16) Zuawb-ve-avwfsal renal failure Code(s): N17.9 - ACUTE KIDNEY FAILURE, UNSPECIFIED N18.9 - CHRONIC KIDNEY DISEASE, UNSPECIFIED (17) Anasarca Code(s): R60.1 - GENERALIZED EDEMA (18) Anemia Code(s): D64.9 - ANEMIA, UNSPECIFIED Qualifiers: Other causes of anemia: chronic disease, other (19) Ascites Code(s): R18.8 - OTHER ASCITES Qualifiers: Ascites type: other type Qualified Code(s): R18.8 - Other ascites (20) Asterixis Code(s): R27.8 - OTHER LACK OF COORDINATION (21) Atrial fibrillation and flutter Code(s): I48.91 - UNSPECIFIED ATRIAL FIBRILLATION I48.92 - UNSPECIFIED ATRIAL FLUTTER (22) Atrial fibrillation with RVR Code(s): I48.91 - UNSPECIFIED ATRIAL FIBRILLATION (23) Atrial flutter Code(s): I48.92 - UNSPECIFIED ATRIAL FLUTTER (24) CAP (community acquired pneumonia) Code(s): J18.9 - PNEUMONIA, UNSPECIFIED ORGANISM (25) CHF (congestive heart failure) Code(s): I50.9 - HEART FAILURE, UNSPECIFIED (26) CHF exacerbation Code(s): I50.9 - HEART FAILURE, UNSPECIFIED (27) CVA (cerebral vascular accident) Code(s): I63.9 - CEREBRAL INFARCTION, UNSPECIFIED (28) Cardiac cirrhosis Code(s): K76.1 - CHRONIC PASSIVE CONGESTION OF LIVER (29) Chest pain at rest Code(s): R07.9 - CHEST PAIN, UNSPECIFIED (30) Chronic leukopenia Code(s): D72.819 - DECREASED WHITE BLOOD CELL COUNT, UNSPECIFIED (31) DVT prophylaxis Code(s): YTG2161 - (32) Dehydration Code(s): E86.0 - DEHYDRATION (33) Dementia Code(s): F03.90 - UNSPECIFIED DEMENTIA WITHOUT BEHAVIORAL DISTURBANCE (34) Diarrhea Code(s): R19.7 - DIARRHEA, UNSPECIFIED (35) Elevated CA-125 Code(s): R97.1 - ELEVATED CANCER ANTIGEN 125 [CA 125] (36) Elevated troponin Code(s): R74.8 - ABNORMAL LEVELS OF OTHER SERUM ENZYMES (37) GI bleed Code(s): K92.2 - GASTROINTESTINAL HEMORRHAGE, UNSPECIFIED Qualifiers: GI bleed type/associated pathology: anorectal hemorrhage Qualified Code (s): K62.5 - Hemorrhage of anus and rectum (38) Hemorrhoids Code(s): K64.9 - UNSPECIFIED HEMORRHOIDS Qualifiers: Hemorrhoid type: third degree Qualified Code(s): K64.2 - Third degree hemorrhoids (39) Hyperglycemia Code(s): R73.9 - HYPERGLYCEMIA, UNSPECIFIED (40) Hyperlipidemia Code(s): E78.5 - HYPERLIPIDEMIA, UNSPECIFIED (41) ICD (implantable cardioverter-defibrillator) in place Code(s): Z95.810 - PRESENCE OF AUTOMATIC (IMPLANTABLE) CARDIAC DEFIBRILLATOR (42) Mitral regurgitation and aortic stenosis Code(s): I08.0 - RHEUMATIC DISORDERS OF BOTH MITRAL AND AORTIC VALVES (43) NSTEMI (non-ST elevated myocardial infarction) Code(s): I21.4 - NON-ST ELEVATION (NSTEMI) MYOCARDIAL INFARCTION (44) Pancreatitis Code(s): K85.9 - ACUTE PANCREATITIS, UNSPECIFIED * DO NOT USE * Qualifiers: Chronicity: acute Pancreatitis type: other (45) Paroxysmal atrial fibrillation Code(s): I48.0 - PAROXYSMAL ATRIAL FIBRILLATION (46) Partial symptomatic epilepsy with complex partial seizures, not intractable , with status epilepticus Code(s): G40.201 - LOCAL-REL SYMPTC EPI W CMPLX PRT SEIZ, NOT NTRCT, W STAT EPI (47) Pleural effusion Code(s): J90 - PLEURAL EFFUSION, NOT ELSEWHERE CLASSIFIED (48) Poor appetite Code(s): R63.0 - ANOREXIA (49) Pulmonary embolism Code(s): I26.99 - OTHER PULMONARY EMBOLISM WITHOUT ACUTE COR PULMONALE (50) Pulmonary hypertension Code(s): I27.2 - OTHER SECONDARY PULMONARY HYPERTENSION (51) Rapid atrial fibrillation Code(s): I48.91 - UNSPECIFIED ATRIAL FIBRILLATION (52) Rash and nonspecific skin eruption Code(s): R21 - RASH AND OTHER NONSPECIFIC SKIN ERUPTION (53) Systolic and diastolic CHF w/reduced LV function, NYHA class 4 Code(s): I50.40 - UNSP COMBINED SYSTOLIC AND DIASTOLIC (CONGESTIVE) HRT FAIL (54) TIA (transient ischemic attack) Code(s): G45.9 - TRANSIENT CEREBRAL ISCHEMIC ATTACK, UNSPECIFIED (55) Anxiety and depression Code(s): F41.8 - OTHER SPECIFIED ANXIETY DISORDERS (56) Atrial fibrillation Code(s): I48.91 - UNSPECIFIED ATRIAL FIBRILLATION Qualifiers: Atrial fibrillation type: chronic Qualified Code(s): I48.2 - Chronic atrial fibrillation (57) CKD (chronic kidney disease) Code(s): N18.9 - CHRONIC KIDNEY DISEASE, UNSPECIFIED Qualifiers: Chronic kidney disease stage: unspecified stage Qualified Code(s): N18.9 - Chronic kidney disease, unspecified (58) History of CVA (cerebrovascular accident) Code(s): Z86.73 - PRSNL HX OF TIA (TIA), AND CEREB INFRC W/O RESID DEFICITS (59) Hypertension Code(s): I10 - ESSENTIAL (PRIMARY) HYPERTENSION Qualifiers: Hypertension type: essential hypertension Qualified Code(s): I10 - Essential (primary) hypertension (60) Renal mass Code(s): N28.89 - OTHER SPECIFIED DISORDERS OF KIDNEY AND URETER (61) Seizure disorder Code(s): G40.909 - EPILEPSY, UNSP, NOT INTRACTABLE, WITHOUT STATUS EPILEPTICUS Assessment/Plan ? CVA ?seizures ?TIA aphasia and weakness from yesterday resolved HTN CAD-->PCI 2015 ICD 2015 anxiety/depression atrial fibrillation CVA (2010) with right side weakness Diabetes mellitus, type II Diverticulitis/colitis Hyperlipidemia Hypertension Renal insufficiency seizures Systolic heart failure; s/p ICD 2014 CAD-->PCI 2015 ICD 2015 Plan; f/u Neurology consult cont ac off digoxin stable on increased dose of Coreg neuro eval cont telemetry
--- NOTE | 2016-11-20 12:09 | PN ---
Progress Note, Physician History of Present Illness: Pt seen and examined at bedside. She is awake and alert. She denies lower extremity edema. - Current Medication List Current Medications: Active Medications Acetaminophen (Tylenol -) 650 mg PO Q6H PRN PRN Reason: FEVER OR PAIN Acetaminophen (Tylenol -) 325 mg PO Q6H PRN PRN Reason: PAIN Apixaban (Eliquis -) 5 mg PO BID COUNT INCLUDES [facility] Last Admin: 11/20/16 09:38 Dose: 5 mg Bupropion HCl (Wellbutrin Xl -) 150 mg PO DAILY COUNT INCLUDES [facility] Last Admin: 11/20/16 09:38 Dose: 150 mg Carvedilol (Coreg -) 25 mg PO BID COUNT INCLUDES [facility] Last Admin: 11/20/16 09:38 Dose: 25 mg Donepezil HCl (Aricept -) 5 mg PO BID COUNT INCLUDES [facility] Last Admin: 11/20/16 09:38 Dose: 5 mg Glipizide (Glucotrol -) 5 mg PO DAILY@0700 [facility] Last Admin: 11/20/16 06:48 Dose: Not Given Labetalol HCl (Normodyne Injection -) 5 mg IVPUSH PRN PRN PRN Reason: For systolic BP >190 Levetiracetam (Keppra Injection -) 500 mg IVPB BID COUNT INCLUDES [facility] Last Admin: 11/20/16 09:38 Dose: 500 mg Magnesium Oxide (Mag-Ox -) 400 mg PO BID COUNT [facility]CLUDES [facility] Last Admin: 11/20/16 09:38 Dose: 400 mg Memantine (Namenda -) 5 mg PO BID COUNT [facility]CLUD[facility] Last Admin: 11/20/16 09:38 Dose: 5 mg Oxycodone HCl (Roxicodone -) 5 mg PO Q6H PRN PRN Reason: PAIN Polyethylene Glycol (Miralax (For Daily Use) -) 17 gm PO DAILY COUNT [facility]CLUDES [facility] Last Admin: 11/19/16 10:26 Dose: Not Given Pramipexole Dihydrochloride (Mirapex -) 0.125 mg PO HS COUNT [facility]CLUDES [facility] Last Admin: 11/19/16 21:30 Dose: 0.125 mg - Objective Vital Signs: Vital Signs Temperature 97.5 F L 11/20/16 08:00 Pulse Rate 118 H 11/20/16 08:00 Respiratory Rate 18 11/20/16 09:00 Blood Pressure 120/86 11/20/16 08:00 O2 Sat by Pulse Oximetry (%) 99 11/20/16 09:00 Constitutional: Yes: Calm Eyes: Yes: Conjunctiva Clear HENT: Yes: Atraumatic Neck: Yes: Supple Cardiovascular: Yes: S1, S2 Respiratory: Yes: CTA Bilaterally Gastrointestinal: Yes: Soft Genitourinary: Yes: WNL Musculoskeletal: Yes: WNL Edema: Yes Edema: LLE: Trace, RLE: Trace Neurological: Yes: Oriented Psychiatric: Yes: Oriented Labs: CBC, BMP 11/20/16 06:30 11/19/16 06:30 INR, PTT INR 1.35 (0.82-1.09) H 11/19/16 06:30 Problem List - Problems (1) CHF exacerbation Code(s): I50.9 - HEART FAILURE, UNSPECIFIED (2) CVA (cerebral vascular accident) Code(s): I63.9 - CEREBRAL INFARCTION, UNSPECIFIED Assessment/Plan Current Medications Generic Name Dose Route Start Last Admin Trade Name Freq PRN Reason Stop Dose Admin Acetaminophen 650 mg 11/17/16 16:27 Tylenol - PO Q6H PRN FEVER OR PAIN Acetaminophen 325 mg 11/19/16 06:48 Tylenol - PO Q6H PRN PAIN Apixaban 5 mg 11/19/16 10:00 11/20/16 09:38 Eliquis - PO 5 mg BID ROSA Administration Bupropion HCl 150 mg 11/18/16 10:00 11/20/16 09:38 Wellbutrin Xl - PO 150 mg DAILY ROSA Administration Carvedilol 25 mg 11/18/16 10:00 11/20/16 09:38 Coreg - PO 25 mg BID ROSA Administration Donepezil HCl 5 mg 11/17/16 22:00 11/20/16 09:38 Aricept - PO 5 mg BID ROSA Administration Glipizide 5 mg 11/18/16 07:00 11/20/16 06:48 Glucotrol - PO Not Given DAILY@0700 ROSA Labetalol HCl 5 mg 11/17/16 16:26 Normodyne Injection - IVPUSH PRN PRN For systolic BP >190 Levetiracetam 500 mg 11/20/16 10:00 11/20/16 09:38 Keppra Injection - IVPB 500 mg BID ROSA Administration Magnesium Oxide 400 mg 11/19/16 10:00 11/20/16 09:38 Mag-Ox - PO 400 mg BID ROSA Administration Memantine 5 mg 11/17/16 22:00 11/20/16 09:38 Namenda - PO 5 mg BID ROSA Administration Oxycodone HCl 5 mg 11/19/16 06:48 Roxicodone - PO Q6H PRN PAIN Polyethylene Glycol 17 gm 11/18/16 10:00 11/19/16 10:26 Miralax (For Daily Use) - PO Not Given DAILY ROSA Pramipexole Dihydrochloride 0.125 mg 11/17/16 22:00 11/19/16 21:30 Mirapex - PO 0.125 mg HS ROSA Administration Impression 1. lower extremity weakness 2. CKD 3. HTN 4. CHF 5. hx CVA 6. hx pancreatitis 7. epilepsy Plan - renal function is stable - cont workup per neurology - will see pt in office - avoid nsaids and nephrotoxic agents - check mag level Dr Healy
--- NOTE | 2016-11-20 16:31 | PN ---
Progress Note, Physician Chief Complaint: PATIENT AWAKE AND ALERT X 2 DEMENTIA PROGRESSIVE EVENTS AND CHARTS REVIEWED - Current Medication List Current Medications: Active Medications Acetaminophen (Tylenol -) 650 mg PO Q6H PRN PRN Reason: FEVER OR PAIN Acetaminophen (Tylenol -) 325 mg PO Q6H PRN PRN Reason: PAIN Apixaban (Eliquis -) 5 mg PO BID COUNT [facility]CLUDES [facility] Last Admin: 11/20/16 09:38 Dose: 5 mg Bupropion HCl (Wellbutrin Xl -) 150 mg PO DAILY COUNT INCLUDES [facility] Last Admin: 11/20/16 09:38 Dose: 150 mg Carvedilol (Coreg -) 25 mg PO BID COUNT [facility]CLUDES [facility] Last Admin: 11/20/16 09:38 Dose: 25 mg Donepezil HCl (Aricept -) 5 mg PO BID COUNT [facility]CLUDES [facility] Last Admin: 11/20/16 09:38 Dose: 5 mg Glipizide (Glucotrol -) 5 mg PO DAILY@0700 COUNT [facility] Last Admin: 11/20/16 06:48 Dose: Not Given Labetalol HCl (Normodyne Injection -) 5 mg IVPUSH PRN PRN PRN Reason: For systolic BP >190 Levetiracetam (Keppra Injection -) 500 mg IVPB BID COUNT [facility]CLUDES [facility] Last Admin: 11/20/16 09:38 Dose: 500 mg Magnesium Oxide (Mag-Ox -) 400 mg PO BID COUNT [facility]CLUDES [facility] Last Admin: 11/20/16 09:38 Dose: 400 mg Memantine (Namenda -) 5 mg PO BID COUNT [facility]CLUDES [facility] Last Admin: 11/20/16 09:38 Dose: 5 mg Oxycodone HCl (Roxicodone -) 5 mg PO Q6H PRN PRN Reason: PAIN Polyethylene Glycol (Miralax (For Daily Use) -) 17 gm PO DAILY COUNT INCLUDES [facility] Last Admin: 11/20/16 10:27 Dose: Not Given Pramipexole Dihydrochloride (Mirapex -) 0.125 mg PO HS COUNT INCLUDES [facility] Last Admin: 11/19/16 21:30 Dose: 0.125 mg - Objective Vital Signs: Vital Signs Temperature 98.1 F 11/20/16 14:00 Pulse Rate 115 H 11/20/16 14:00 Respiratory Rate 18 11/20/16 14:00 Blood Pressure 114/75 11/20/16 14:00 O2 Sat by Pulse Oximetry (%) 99 11/20/16 09:00 Constitutional: Yes: Mild Distress Eyes: Yes: WNL HENT: Yes: WNL Neck: Yes: WNL Cardiovascular: Yes: Pulse Irregular Respiratory: Yes: WNL Gastrointestinal: Yes: WNL Genitourinary: Yes: WNL Musculoskeletal: Yes: WNL Extremities: Yes: WNL Edema: No Peripheral Pulses WNL: Yes Integumentary: Yes: WNL Wound/Incision: Yes: Clean/Dry Neurological: Yes: WNL ...Motor Strength: WNL Psychiatric: Yes: Other Labs: CBC, BMP 11/20/16 06:30 11/19/16 06:30 INR, PTT INR 1.35 (0.82-1.09) H 11/19/16 06:30 Problem List - Problems (1) CVA (cerebral vascular accident) Code(s): I63.9 - CEREBRAL INFARCTION, UNSPECIFIED (2) ICD (implantable cardioverter-defibrillator) in place Code(s): Z95.810 - PRESENCE OF AUTOMATIC (IMPLANTABLE) CARDIAC DEFIBRILLATOR (3) Paroxysmal atrial fibrillation Code(s): I48.0 - PAROXYSMAL ATRIAL FIBRILLATION (4) Systolic and diastolic CHF w/reduced LV function, NYHA class 4 Code(s): I50.40 - UNSP COMBINED SYSTOLIC AND DIASTOLIC (CONGESTIVE) HRT FAIL (5) TIA (transient ischemic attack) Code(s): G45.9 - TRANSIENT CEREBRAL ISCHEMIC ATTACK, UNSPECIFIED (6) History of CVA (cerebrovascular accident) Code(s): Z86.73 - PRSNL HX OF TIA (TIA), AND CEREB INFRC W/O RESID DEFICITS (7) Hypertension Code(s): I10 - ESSENTIAL (PRIMARY) HYPERTENSION Qualifiers: Hypertension type: essential hypertension Qualified Code(s): I10 - Essential (primary) hypertension (8) Seizure disorder Code(s): G40.909 - EPILEPSY, UNSP, NOT INTRACTABLE, WITHOUT STATUS EPILEPTICUS Assessment/Plan ACUTE AND CHRONIC CVA SEIZURE D/O NEURO CHECKS LIPID PANEL AND A1C REVIEWED ON STATIN AND AC NO MRI PATIENT HAS ICD PT EVAL [facility] AND [facility] FOR SEIZURES
--- NOTE | 2016-11-20 19:27 | PN ---
Progress Note (short form) - Note Progress Note: Vascular Surgery Pt seen and examined. Doing well. No signs of any weaknesses. Neurology eval -- probably event secondary to posterior circulation defecit. No carotid bruits. Medical management. Zechariah Logan DO
[2016-11-20] MEDS ORDERED: PT OWN MED DRAWER 7, Y5N ONE (21:27)
[2016-11-20] MEDS: PRAMIPEXOLE DIHYDROCHLORIDE 0.125 MG TABLET PO SCH (21:39)
[2016-11-20] MEDS ORDERED: INSULIN (NOVOLOG) ASPART 100 UNITS/ML 10ML VIAL ONE (21:54)
[2016-11-21] MEDS: glipiZIDE 5 MG TABLET (FP) PO SCH (06:15)
[2016-11-21 07:42] LABS: ANION GAP 7 (8-16); CO2 29 mmol/L (21-32); CREATININE 1.3 mg/dL (0.55-1.02); GLUCOSE,RANDOM 131 mg/dL (74-106); MAGNESIUM 2.1 mg/dL (1.8-2.4)
[2016-11-21] MEDS: MEMANTINE HCL 5 MG TABLET (UD) PO SCH (09:56)
[2016-11-21] MEDS: DONEPEZIL HCL 5 MG TABLET (FP) PO SCH (09:56)
[2016-11-21] MEDS: MAGNESIUM OXIDE 400 MG TABLET (FP) PO SCH (09:56)
[2016-11-21] MEDS: CARVEDILOL 25 MG TABLET (FP) PO SCH (09:56)
[2016-11-21] MEDS: levETIRAcetam 500 MG/5 ML INJECTION VIAL IVPB SCH (09:57)
[2016-11-21] MEDS: POLYETHYLENE GLYCOL 3350 119 GM BTL PO SCH (09:57)
[2016-11-21] MEDS: APIXABAN 5 MG TABLET PO SCH (09:57)
--- NOTE | 2016-11-21 10:44 | PN ---
Progress Note, Physician Chief Complaint: Difficulty walking, speaking, f/u on code erasmo History of Present Illness: HPI: "71 year old female with a past medical DM, HTN, CVA, has an ACD, seizures presented to ER on 11/17/16 with B/L lower extremity weakness, tremors in the hands, and slurred speech. Patient on eliquis 2.5 bid. At around 4:35 brigitte zimmerman was called. Patient states that she was lying in bed and all of the sudden she felt heaviness of the right side of her body, she states that she is unable to move or get out of bed. A few minuets earlier nurse states she went to get up to go to the bathroom walked with assistance, half hr later when symptoms began. Denies headache, lightheadedness, chest pain, palpitations, dizziness, fever, chills, leg swelling Pt. was noted to be aphasic with difficulty getting words out but there is a suspicion that she may have been dysarthric, she had right arm/leg weakness with ?? right central facial weakness. Her NIHSS is documented to be 20 at the time brigitte zimmerman was called. see on 11/18/16 6am, she appeared with BP of 137/82, HR of 80, regular. I examined the patient downstairs in radiology right afetr she had her head CT.Pt was awake, alert, oriented to place/person. She was mildly dysarthric , could follow 2 step commands. She c/o difficulty speaking and right arm/leg weakness but informed me that it was improving. She scored 5 on the NIHSS, as per Dr. Dior she was neurologically improving. As per the accompanying doctors description she was noted to be aphasic earlier but to my exam she was dysarthric." FU : feels much better now, residual gait difficulty. She has baseline right sided weakness, which is pre-existing. She no longer has language or speech difficulty. She feels like her legs are weak, but I cannot elicit any focal weakness beyond what she had at baseline. She may be referring more to imbalance. HX of seizures on lamictal -- 100BID , typical sz may become tremulous and speech issues, 2 seizures this month, sees DR Pak CTA reviewed. IMPRESSION: Atheromatous calcified plaques in the cavernous carotid artery, bilaterally as well as in the intradural portion of both distal vertebral arteries. Otherwise, no gross focal stenosis, aneurysm, major artery cutoff or vascular malformation is identified within the central intracranial arterial circulation. - Current Medication List Current Medications: Active Medications Acetaminophen (Tylenol -) 650 mg PO Q6H PRN PRN Reason: FEVER OR PAIN Acetaminophen (Tylenol -) 325 mg PO Q6H PRN PRN Reason: PAIN Apixaban (Eliquis -) 5 mg PO BID [facility] Last Admin: 11/21/16 09:57 Dose: 5 mg Bupropion HCl (Wellbutrin Xl -) 150 mg PO DAILY [facility] Last Admin: 11/21/16 09:56 Dose: 150 mg Carvedilol (Coreg -) 25 mg PO BID [facility] Last Admin: 11/21/16 09:56 Dose: 25 mg Donepezil HCl (Aricept -) 5 mg PO BID [facility] Last Admin: 11/21/16 09:56 Dose: 5 mg Glipizide (Glucotrol -) 5 mg PO DAILY@0700 [facility] Last Admin: 11/21/16 06:15 Dose: Not Given Labetalol HCl (Normodyne Injection -) 5 mg IVPUSH PRN PRN PRN Reason: For systolic BP >190 Levetiracetam (Keppra Injection -) 500 mg IVPB BID [facility] Last Admin: 11/21/16 09:57 Dose: 500 mg Magnesium Oxide (Mag-Ox -) 400 mg PO BID [facility] Last Admin: 11/21/16 09:56 Dose: 400 mg Memantine (Namenda -) 5 mg PO BID [facility] Last Admin: 11/21/16 09:56 Dose: 5 mg Oxycodone HCl (Roxicodone -) 5 mg PO Q6H PRN PRN Reason: PAIN Polyethylene Glycol (Miralax (For Daily Use) -) 17 gm PO DAILY [facility] Last Admin: 11/21/16 09:57 Dose: Not Given Pramipexole Dihydrochloride (Mirapex -) 0.125 mg PO HS [facility] Last Admin: 11/20/16 21:39 Dose: 0.125 mg - Objective Vital Signs: Vital Signs Temperature 98.1 F 11/21/16 06:00 Pulse Rate 125 H 11/21/16 06:00 Respiratory Rate 20 11/21/16 06:00 Blood Pressure 116/76 11/21/16 06:00 O2 Sat by Pulse Oximetry (%) 98 11/20/16 20:39 Neurological: Yes: Cran Nerves II-XII Intact, Pre-Existing Deficit (right sided weakness 5-/5, gait is slow, mildly wide based. subjectively worse than baseline, but mildly so.) Labs: CBC, BMP 11/20/16 06:30 11/21/16 06:40 INR, PTT INR 1.35 (0.82-1.09) H 11/19/16 06:30 - ....Imaging Cat Scan: Report Reviewed, Image Reviewed (white matter small vessel disease, cta shows atheromatous plaque bilateral carotids) Problem List - Problems (1) Gait difficulty Assessment/Plan: may be new small vessel ischemic event. As she is not an MRI candidate, I don' t think that we'll be able to know for certain with CT scan, but repeat CT head may sometimes be useful so I'll order this to see if anything new turns up. Seizure is possible, with prolonged postictal period, as well, and I don't think we'll ever be 100% certain which of the above this is. If she doesn't return to baseline, a new stroke is favored, though. Would recommend rehab for her gait. Code(s): R26.9 - UNSPECIFIED ABNORMALITIES OF GAIT AND MOBILITY (2) Epilepsy Assessment/Plan: possible seizure vs. stroke. Keppra added to lamictal. Continue this. Code(s): G40.909 - EPILEPSY, UNSP, NOT INTRACTABLE, WITHOUT STATUS EPILEPTICUS
--- NOTE | 2016-11-21 12:24 | PN ---
Progress Note, EMERGENCY MEDICAL TECHNICIAN BASIC - Note Progress Note: Selected Entries 11/19/16 11/19/16 11/20/16 12:38 22:54 01:52 Breakfast 75% Supper 100% Temperature 97.8 F 11/20/16 11/20/16 11/20/16 08:00 14:00 17:13 Breakfast Supper Temperature 97.5 F L 98.1 F 98.5 F 11/20/16 11/20/16 11/20/16 20:39 21:15 22:00 Breakfast Supper 100% 100% Temperature 97.5 F L 11/21/16 11/21/16 11/21/16 02:00 06:00 10:00 Breakfast Supper Temperature 97.8 F 98.1 F 97.8 F Tolerating diet overtly. Suggest swallowing tx upon d/c. Reviewed with staff.
--- NOTE | 2016-11-21 16:09 | PN ---
Progress Note, Physician History of Present Illness: Pt seen and examined at bedside. She is awake and alert. She feels that her legs are getting stronger. - Current Medication List Current Medications: Active Medications Acetaminophen (Tylenol -) 650 mg PO Q6H PRN PRN Reason: FEVER OR PAIN Acetaminophen (Tylenol -) 325 mg PO Q6H PRN PRN Reason: PAIN Apixaban (Eliquis -) 5 mg PO BID [facility] Last Admin: 11/21/16 09:57 Dose: 5 mg Bupropion HCl (Wellbutrin Xl -) 150 mg PO DAILY [facility] Last Admin: 11/21/16 09:56 Dose: 150 mg Carvedilol (Coreg -) 25 mg PO BID [facility] Last Admin: 11/21/16 09:56 Dose: 25 mg Donepezil HCl (Aricept -) 5 mg PO BID [facility] Last Admin: 11/21/16 09:56 Dose: 5 mg Glipizide (Glucotrol -) 5 mg PO DAILY@0700 [facility] Last Admin: 11/21/16 06:15 Dose: Not Given Labetalol HCl (Normodyne Injection -) 5 mg IVPUSH PRN PRN PRN Reason: For systolic BP >190 Levetiracetam (Keppra Injection -) 500 mg IVPB BID [facility] Last Admin: 11/21/16 09:57 Dose: 500 mg Magnesium Oxide (Mag-Ox -) 400 mg PO BID [facility] Last Admin: 11/21/16 09:56 Dose: 400 mg Memantine (Namenda -) 5 mg PO BID [facility] Last Admin: 11/21/16 09:56 Dose: 5 mg Oxycodone HCl (Roxicodone -) 5 mg PO Q6H PRN PRN Reason: PAIN Polyethylene Glycol (Miralax (For Daily Use) -) 17 gm PO DAILY [facility] Last Admin: 11/21/16 09:57 Dose: Not Given Pramipexole Dihydrochloride (Mirapex -) 0.125 mg PO HS [facility] Last Admin: 11/20/16 21:39 Dose: 0.125 mg - Objective Vital Signs: Vital Signs Temperature 97.8 F 11/21/16 10:00 Pulse Rate 117 H 11/21/16 10:00 Respiratory Rate 20 11/21/16 10:00 Blood Pressure 119/72 11/21/16 10:00 O2 Sat by Pulse Oximetry (%) 98 11/21/16 10:00 Constitutional: Yes: Calm Eyes: Yes: Conjunctiva Clear HENT: Yes: Atraumatic Neck: Yes: Supple Cardiovascular: Yes: S1, S2 Respiratory: Yes: CTA Bilaterally Gastrointestinal: Yes: Soft Musculoskeletal: Yes: Muscle Weakness Edema: No Neurological: Yes: Oriented Labs: CBC, BMP 11/20/16 06:30 11/21/16 06:40 INR, PTT INR 1.35 (0.82-1.09) H 11/19/16 06:30 Problem List - Problems (1) CHF exacerbation Code(s): I50.9 - HEART FAILURE, UNSPECIFIED (2) CVA (cerebral vascular accident) Code(s): I63.9 - CEREBRAL INFARCTION, UNSPECIFIED Assessment/Plan Current Medications Generic Name Dose Route Start Last Admin Trade Name Freq PRN Reason Stop Dose Admin Acetaminophen 650 mg 11/17/16 16:27 Tylenol - PO Q6H PRN FEVER OR PAIN Acetaminophen 325 mg 11/19/16 06:48 Tylenol - PO Q6H PRN PAIN Apixaban 5 mg 11/19/16 10:00 11/21/16 09:57 Eliquis - PO 5 mg BID ROSA Administration Bupropion HCl 150 mg 11/18/16 10:00 11/21/16 09:56 Wellbutrin Xl - PO 150 mg DAILY [facility] Administration Carvedilol 25 mg 11/18/16 10:00 11/21/16 09:56 Coreg - PO 25 mg BID [facility] Administration Donepezil HCl 5 mg 11/17/16 22:00 11/21/16 09:56 Aricept - PO 5 mg BID ROSA Administration Glipizide 5 mg 11/18/16 07:00 11/21/16 06:15 Glucotrol - PO Not Given DAILY@0700 [facility] Labetalol HCl 5 mg 11/17/16 16:26 Normodyne Injection - IVPUSH PRN PRN For systolic BP >190 Levetiracetam 500 mg 11/20/16 10:00 11/21/16 09:57 Keppra Injection - IVPB 500 mg BID [facility]A Administration Magnesium Oxide 400 mg 11/19/16 10:00 11/21/16 09:56 Mag-Ox - PO 400 mg BID [facility] Administration Memantine 5 mg 11/17/16 22:00 08/08/17 09:56 Namenda - PO 5 mg BID [facility]A Administration Oxycodone HCl 5 mg 11/19/16 06:48 Roxicodone - PO Q6H PRN PAIN Polyethylene Glycol 17 gm 11/18/16 10:00 11/21/16 09:57 Miralax (For Daily Use) - PO Not Given DAILY [facility] Pramipexole Dihydrochloride 0.125 mg 11/17/16 22:00 11/20/16 21:39 Mirapex - PO 0.125 mg HS ROSA Administration Laboratory Tests 11/21/16 06:40 Magnesium 2.1 D Impression 1. lower extremity weakness 2. CKD 3. HTN 4. CHF 5. hx CVA 6. hx pancreatitis 7. epilepsy Plan - mag level has normalized - cont current meds - renal function is stable - cont workup per neurology - will see pt in office - avoid nsaids and nephrotoxic agents Dr Healy
--- NOTE | 2016-11-21 16:26 | DS ---
Physical Examination Vital Signs: Vital Signs Temperature 97.8 F 11/21/16 10:00 Pulse Rate 117 H 11/21/16 10:00 Respiratory Rate 20 11/21/16 10:00 Blood Pressure 119/72 11/21/16 10:00 O2 Sat by Pulse Oximetry (%) 98 11/21/16 10:00 Constitutional: Yes: No Distress Eyes: Yes: WNL HENT: Yes: WNL Neck: Yes: WNL Cardiovascular: Yes: Pulse Irregular Respiratory: Yes: WNL Gastrointestinal: Yes: WNL Musculoskeletal: Yes: WNL Extremities: Yes: WNL Edema: No Peripheral Pulses WNL: Yes Integumentary: Yes: WNL Wound/Incision: Yes: Clean/Dry Neurological: Yes: WNL, Pre-Existing Deficit ...Motor Strength: WNL Psychiatric: Yes: WNL Labs: CBC, BMP 11/20/16 06:30 11/21/16 06:40 Discharge Summary Reason For Visit: STROKE; WEAKNESS Current Active Problems Abdominal pain (Acute) Acute on chronic systolic and diastolic heart failure, NYHA class 4 (Acute) Acute prerenal azotemia (Acute) Atypical chest pain (Acute) Coronary artery disease (Acute) Elevated lactic acid level (Acute) Elevated lipase (Acute) Epilepsy (Acute) Gait difficulty (Acute) Hyperkalemia (Acute) Shortness of breath (Acute) Slurred speech (Acute) Tachyarrhythmia (Acute) Weakness (Acute) Arrhythmia (Chronic) Cardiomegaly (Chronic) Diabetes mellitus (Chronic) Procedures: Principal: ct brain Hospital Course: admitted for slurred speech, worked up see neurology and dr marlow in 1 weeek Condition: Improved - Instructions Diet, Activity, Other Instructions: Follow up with Neurology within next 2 weeks- Dr Arben Rincon at follow up with PCP in next 2 weeks Follow the dysphagia diet see dr marlow in 2 days Referrals: Kei Marlow MD [Primary Care Provider] - Disposition: HOME - Home Medications Comprehensive Discharge Medication List: Ambulatory Orders Digoxin [Lanoxin -] 0.125 mg PO DAILY 04/18/16 Glipizide [Glipizide Xl] 5 mg PO DAILY 04/18/16 Lamotrigine 100 mg PO BID 04/18/16 Bupropion HCl [Wellbutrin Sr] 150 mg PO DAILY 11/17/16 Donepezil HCl [Aricept] 10 mg PO DAILY 11/17/16 Memantine HCl [Namenda -] 10 mg PO DAILY 11/17/16 Pramipexole Di-HCl [Mirapex] 0.25 mg PO DAILY 11/17/16 Carvedilol [Coreg -] 12.5 mg PO DAILY 11/18/16 Acetaminophen [Tylenol .Regular Strength -] 325 mg PO Q6H PRN #0 tablet Acetaminophen [Tylenol .Regular Strength -] 650 mg PO Q6H PRN #0 tablet Apixaban [Eliquis -] 5 mg PO BID tablet 11/21/16 Apixaban [Eliquis -] 5 mg PO BID #60 tablet 11/21/16 Bupropion HCl [Wellbutrin Xl -] 150 mg PO DAILY tab 11/21/16 Carvedilol [Coreg -] 25 mg PO BID tablet 11/21/16 Donepezil HCl [Aricept -] 5 mg PO BID tablet 11/21/16 Glipizide [Glucotrol -] 5 mg PO DAILY@0700 tablet 11/21/16 Levetiracetam [Keppra -] 500 mg PO BID #60 tablet 11/21/16 Magnesium Oxide [Mag-Ox -] 400 mg PO BID tablet 11/21/16 Memantine HCl [Namenda -] 5 mg PO BID tab 11/21/16 Polyethylene Glycol 3350 [Miralax 119 gm Btl -] 17 gm PO DAILY bottle 11/21/16 Pramipexole Dihydrochloride [Mirapex -] 0.125 mg PO HS tablet 11/21/16
[2016-11-21 18:12] VITALS: BP 133/95; PULSE 119; TEMP 98.3
== END 2016-11-21 18:30 | disposition home or self-care (01) | DRG 101 ==
LOC: JER 11:45 → JERBED 16:18 → J4S 17:20
PROVIDERS: ADMIT Family Medicine; ATTEND Family Medicine
DX: G40.909 Epilepsy, unspecified, not intractable, without status epilepticus (principal); G81.91 Hemiplegia, unspecified affecting right dominant side; I13.0 Hypertensive heart and chronic kidney disease with heart failure and stage 1 through stage 4 chronic kidney disease, or unspecified chronic kidney disease; I50.40 Unspecified combined systolic (congestive) and diastolic (congestive) heart failure; N17.9 Acute kidney failure, unspecified; R47.01 Aphasia; F41.8 Other specified anxiety disorders; I48.0 Paroxysmal atrial fibrillation; E78.5 Hyperlipidemia, unspecified; I25.10 Atherosclerotic heart disease of native coronary artery without angina pectoris; K57.90 Diverticulosis of intestine, part unspecified, without perforation or abscess without bleeding; I35.0 Nonrheumatic aortic (valve) stenosis; I34.0 Nonrheumatic mitral (valve) insufficiency; K64.8 Other hemorrhoids; R79.89 Other specified abnormal findings of blood chemistry; R26.9 Unspecified abnormalities of gait and mobility; F03.90 Unspecified dementia, unspecified severity, without behavioral disturbance, psychotic disturbance, mood disturbance, and anxiety; E11.9 Type 2 diabetes mellitus without complications; R00.0 Tachycardia, unspecified; R29.720 NIHSS score 20; E86.0 Dehydration; E87.5 Hyperkalemia; N18.9 Chronic kidney disease, unspecified; Z95.810 Presence of automatic (implantable) cardiac defibrillator; Z95.5 Presence of coronary angioplasty implant and graft; Z87.891 Personal history of nicotine dependence
CPT/HCPCS: 36415; 70450-TC; 70496-TC; 71010-TC; 76775-TC; 80048; 80053; 80061; 80162; 81003; 81015; 82553; 83036; 83721; 83735; 84100; 84443; 84484; 85025; 85027; 85610; 85651; 85730; 86140; 87070; 87205; 93005; 93010; 97116-GP; 99284-25

== ENCOUNTER → 2016-12-27 | Day surgery (SDC) | payer OTHER ==
--- NOTE | 2016-12-28 08:28 | OP ---
DATE OF OPERATION: 12/27/2016 PREOPERATIVE DIAGNOSIS: Abnormal right mammography. POSTOPERATIVE DIAGNOSIS: Abnormal right mammography. PROCEDURE: Right breast stereotactic needle biopsy with clip. SURGEON: Starr Feliciano MD ANESTHESIA: Local. COMPLICATIONS: None. This was a sterile procedure. INDICATION FOR PROCEDURE: Patient presented with a screening mammography that noted a new area of clustering calcifications in the slightly inferior outer right breast. Recommendation was a needle biopsy. The procedure was discussed with her, all the questions answered. PROCEDURE IN DETAIL: Patient brought to [facility] in [place], laid prone on the [place] table. Using a lateral approach, the calcifications in the slightly inferior outer right breast were identified. A sterile prep obtained. A target was chosen. There was a positive stroke margin. Using Betadine and 1% lidocaine, a petite Suros needle was used to take several cores from this area. Specimen radiograph showed cores of calcifications. These were handled using the calcification protocol. A clip was deployed in the area. Hemostasis was assured with direct pressure. Steri-Strips were used to close the incision. She tolerated the procedure well and left the breast room and signed out in good condition. STARR FELICIANO M.D. [id number]
--- NOTE | 2016-12-28 16:09 | PATH ---
Surgical Pathology Report Patient Name: ENRIQUE RASHID [facility]. Rec. #: [id number] /Age/Gender: 1945 (Age: 71) / F Account: [id number] Location: [facility] Taken: 12/27/2016 Received: 12/27/2016 Reported: 12/28/2016 Physicians: Starr Orozco M.D. Specimen(s) Received A: RIGHT BREAST WITH CALCIFICATIONS STEREOTACTIC BIOPSY B: RIGHT BREAST WITHOUT CALCIFICATIONS STEREOTACTIC BIOPSY Clinical History Mammographic findings: Microcalcification, suspicious Final Diagnosis A. BREAST, RIGHT, WITH CALCIFICATIONS, STEREOTACTIC BIOPSY: BENIGN BREAST TISSUE SHOWING STROMAL FIBROSIS AND FEW CALCIFICATIONS IN ASSOCIATION WITH BENIGN GLANDULAR PARENCHYMA. B. BREAST, RIGHT, WITHOUT CALCIFICATIONS, STEREOTACTIC BIOPSY: BENIGN BREAST TISSUE SHOWING STROMAL FIBROSIS AND CALCIFICATIONS IN ASSOCIATION WITH BENIGN GLANDULAR PARENCHYMA. Electronically Signed Elba Rubi M.D. Gross Description A. Received in formalin, labeled "right breast with calcifications," are 5 underwood-yellow, cylindrical portions of fibroadipose tissue ranging from 1.0-2.5 cm. in length and averaging 0.1 cm. in diameter. The specimen is submitted in toto in one cassette. B. Received in formalin, labeled "right breast without calcifications," are 4 underwood-yellow, cylindrical portions of fibroadipose tissue ranging from 1.0-4.0 cm. in length and averaging 0.1 cm. in diameter. The specimen is submitted in toto in one cassette. Time to formalin fixation: Not given Total formalin fixation time: Approximately 6 hours 12/27/201612/27/2016
== END | disposition home or self-care (01) ==
LOC: FMAMMOTONE 09:20
PROVIDERS: ATTEND Surgery
PROC: 0HBT3ZX Excision of Right Breast, Percutaneous Approach, Diagnostic (ICD-10-PCS; principal; 2016-12-27)
DX: N60.31 Fibrosclerosis of right breast (principal); R92.1 Mammographic calcification found on diagnostic imaging of breast; N64.89 Other specified disorders of breast
CPT/HCPCS: 19081; 87899; 88305-TC; A4648

== ENCOUNTER 2018-08-20 13:01 | Inpatient (IN) | payer OTHER ==
--- NOTE | 2018-08-20 13:24 | PDOC ---
History of Present Illness - General Stated Complaint: NUMBNESS Time Seen by Provider: 08/20/18 13:23 - History of Present Illness Initial Comments: 08/20/18 13:23 Ms. Mcleod is a 72 yo female w/ pmh of DM, HTN, afib, Stroke (now on eliquis, residual R sided weakness), seziure disorder who presents for evaluation of 1 month history of increasing dyspnea on exertion with additional R sided parasthesias and pain she reports occurs from her R neck and goes intermittently down to her R legs. Patient presented to PCP today and was sent to ER for further evaluation and Neurology consult. The patient denies chest pain, headache and dizziness. Denies fever, chills, nausea, vomit, diarrhea and constipation. Denies dysuria, frequency, urgency and hematuria. tPA Exclusion checklist 3-4.5h - Time Elapsed Date last known well: 07/21/18 Time last known well: 08:00 Elaspsed time: 30 Day(s) and 10 Hour(s) and 42 Minutes - Thrombolytic Therapy Candidate Is patient eligible for thrombolytic therapy: No - Exclusion Criteria 3-4.5 hr SBP greater than 185 or DBP greater than 110mmHg despite tx: No Recent IC/spinal surgery,head trauma or stroke<3mos.: No Hx IC hemorrhage, IC neoplasm, AV malformation or aneurysm: No Active internal bleeding: No Blding diathesis(low plt ct, inc PTT,INR>1.7 or use of NOAC): No Symptoms suggest subarachnoid hemorrhage: No CT demonstrates multilobar infarct(>1/3 cerebral hemiphere): No Arterial puncture at noncompressible site in previous 7 days: No Blood glucose concentration less than 50mg/dL (2.7mmol/L): No - Relative Exclusion Criteria 3-4.5 hr Life expectancy <1 yr or severe co-morbid illness: No : No Patient/family refused: No Rapid improvement: No Stroke severity too mild: Yes Recent acute NC (w/in previous 3 months): No Seizure at onset with postictal residual neuro impairments: No Major surgery or serious trauma w/in previous 14 days: No Recent GI or hemorrhage (w/in previous 21 days): No - Add'l Relative Exclusion 3-4.5 hr Age > 80: No Hx of both diabetes AND prior ischemic stroke: Yes Taking an oral anticoagulant regardless of INR: No NIHSS >25: No - Ineligibility reason(s) Reasons No tPA given: Outside of window - delayed arrival, See reason(s) noted above NIH Stroke Scale - Last Known Well Date/Time & Onset Date Last Known Well: 07/21/18 Time Last Known Well: 08:00 - Initial Evaluation Level of consciousness: Alert Ask patient the month and their age: Answers both correctly Ask patient to open & close eyes; make fist and let go: Obeys both correctly Best gaze (horizontal eye movement): Normal Visual field testing: No visual field loss Facial paresis (Show teeth/raise eyebrows/close eyes tight): Normal symmetrical movement Motor Function: Left Arm: Normal Motor Function: Right Arm: Normal (extends arm 90 (or 45) degrees for 10 seconds without drift Motor Function: Left Leg: Normal (extends leg 30 degrees for 5 seconds without drift) Motor Function: Right Leg: Some effort against gravity Limb Ataxia: No ataxia Sensory(Use pinprick test arms,legs,trunk,face/side to side): Normal Best language (Describe picture, name items, read sentences): No Aphasia Dysarthria (read several words): Normal articulation Extinction and Inattention: No abnormality - Total Score NIH Stroke Scale Score: 2 Past History - Past Medical History Allergies/Adverse Reactions: Allergies Allergy/AdvReac Type Severity Reaction Status Date / Time No Known Drug Allergies Allergy Verified 11/17/16 11:54 Home Medications: Ambulatory Orders Carvedilol [Coreg -] 25 mg PO BID tablet 11/21/16 Apixaban [Eliquis -] 2.5 mg PO BID 08/20/18 Atorvastatin Calcium [Lipitor] 10 mg PO DAILY 08/20/18 Ezetimibe/Simvastatin [Ezetimibe-Simvastatin 10-10 mg] 1 each PO DAILY 08/20/18 Hydralazine HCl 10 mg PO BID 08/20/18 Magnesium Oxide [Magnesium] 400 mg PO BID 08/20/18 Sacubitril/Valsartan [Entresto 24 mg-26 mg Tablet] 1 tab PO DAILY 08/20/18 levETIRAcetam [Keppra -] 1,000 mg PO BID 08/20/18 Anemia: No Asthma: No Cancer: No Cardiac Disorders: Yes (HEART MURMUR, AFIB, AICD) CVA: Yes (TIA 2009) COPD: No CHF: No Dementia: No Diabetes: Yes (NIDDM) GI Disorders: (DIVERTICULAR DISEASE) Disorders: No HTN: Yes Hypercholesterolemia: Yes Liver Disease: No Seizures: Yes (2009) Thyroid Disease: No - Surgical History Abdominal Surgery: No Appendectomy: No Cardiac Surgery: Yes (cardiac stent/AICD) Cholecystectomy: No Lung Surgery: No Neurologic Surgery: No Orthopedic Surgery: Yes (CARPAL TUNNEL RELEASE, RIGHT ARM PINNING W/ RODS) - Immunization History Immunization Up to Date: Yes - Suicide/Smoking/Psychosocial Hx Smoking Status: Yes Smoking History: Former smoker Have you smoked in the past 12 months: No Number of Cigarettes Smoked Daily: 0 If you are a former smoker, when did you quit?: 1985 Cigars Per Day: 0 Information on smoking cessation initiated: No Hx Alcohol Use: No Drug/Substance Use Hx: No Substance Use Type: None Hx Substance Use Treatment: No Review of Systems - Review of Systems Comments:: 08/20/18 13:23 GENERAL/CONSTITUTIONAL: No fever or chills. No weakness. HEAD, EYES, EARS, NOSE AND THROAT: No change in vision. No ear pain or discharge. No sore throat. CARDIOVASCULAR: +Increasing dyspnea on exertion. No chest pain RESPIRATORY: No cough, wheezing, or hemoptysis. GASTROINTESTINAL: No nausea, vomiting, diarrhea or constipation. GENITOURINARY: No dysuria, frequency, or change in urination. MUSCULOSKELETAL: No joint or muscle swelling or pain. No neck or back pain. SKIN: No rash NEUROLOGIC: +R whole body pain / parasthesias as reported. No headache, vertigo , loss of consciousness. ENDOCRINE: No increased thirst. No abnormal weight change HEMATOLOGIC/LYMPHATIC: No anemia, easy bleeding, or history of blood clots. ALLERGIC/IMMUNOLOGIC: No hives or skin allergy. *Physical Exam - Vital Signs Last Vital Signs Temp Pulse Resp BP Pulse Ox 98.8 F 52 L 18 150/80 98 08/20/18 13:13 08/20/18 13:13 08/20/18 13:13 08/20/18 13:13 08/20/18 13:13 - Physical Exam Comments: 08/20/18 13:23 GENERAL: Awake, alert, and fully oriented, in no acute distress HEAD: No signs of trauma, normocephalic, atraumatic EYES: PERRLA, EOMI, sclera anicteric, conjunctiva clear ENT: Auricles normal inspection, hearing grossly normal, nares patent, oropharynx clear without exudates. Moist mucosa NECK: Normal ROM, supple, no lymphadenopathy, JVD, or masses LUNGS: No distress, speaks full sentences, clear to auscultation bilaterally HEART: Regular rate and rhythm, normal S1 and S2, no murmurs, rubs or gallops, peripheral pulses normal and equal bilaterally. ABDOMEN: Soft, nontender, normoactive bowel sounds. No guarding, no rebound. No masses EXTREMITIES: Normal inspection, Normal range of motion, no edema. No clubbing or cyanosis. NEUROLOGICAL: Cranial nerves II through XII grossly intact. Normal speech, normal gait, no focal sensorimotor deficits SKIN: Warm, Dry, normal turgor, no rashes or lesions noted. ED Treatment Course - LABORATORY CBC & Chemistry Diagram: 08/20/18 14:00 08/20/18 17:50 Medical Decision Making - Medical Decision Making 08/20/18 17:45 Ms. Mcleod is a 72 yo female w/ pmh as described who presents for evaluation of 1 month history of right sided weakness and parasthesias concerning for stroke vs. exacerbation of weakness vs. spinal compression. Patient evaluated with cardiac as well as infectious labs as well as EKG, CXR, and head / c-spine CT. CT evaluation negative. CXR negative. EKG normal. Labs significant for creatine kinase elevated to 547. Patient hydrated. Labs otherwise grossly wnl. Patient will be admitted for further neurological evaluation. *DC/Admit/Observation/Transfer Diagnosis at time of Disposition: Weakness, History of TIA (transient ischemic attack) - Discharge Dispostion Decision to Admit order: Yes - Referrals - Patient Instructions - Post Discharge Activity
[2018-08-20 14:36] LABS: BASO % 1.4 % (0-2.0); EOS % 2.9 % (0-4.5); HEMATOCRIT 38.5 % (32.4-45.2); HEMOGLOBIN 12.6 GM/dL (10.7-15.3); LYMPH % 35.7 % (8-40); MCH 29.6 pg (25.7-33.7); MCHC 32.7 g/dl (32.0-36.0); MEAN CELL VOLUME 90.5 fl (80-96); MEAN PLT VOLUME 8.5 fl (7.5-11.1); MONO % 14.7 % (3.8-10.2); NEUT % 45.3 % (42.8-82.8); PLATELET COUNT 221 K/MM3 (134-434); RBC 4.26 M/mm3 (3.60-5.2); RDW 13.6 % (11.6-15.6); WHITE BLOOD COUNT 5.3 K/mm3 (4.0-10.0)
[2018-08-20 14:44] LABS: EPI CELLS 0.4 /HPF (0-5/HPF); URINE APPEARANCE CLEAR; URINE BACTERIA 4.6 /hpf (NEGATIVE); URINE BILIRUBIN NEGATIVE (NEGATIVE); URINE CASTS 1 /lpf (0-8); URINE COLOR YELLOW; URINE GLUCOSE (UA) NEGATIVE (NEGATIVE); URINE KETONE NEGATIVE (NEGATIVE); URINE LEUK ESTERASE 1+ (NEGATIVE); URINE NITRITE NEGATIVE (NEGATIVE); URINE PROTEIN NEGATIVE (NEGATIVE); URINE RBC 0 /hpf (0-4); URINE UROBILINOGEN 0.2 mg/dL (0.2-1.0); URINE WBC 2 /hpf (0-5)
[2018-08-20 14:53] LABS: INR 1.33 (0.83-1.09); PROTHROMBIN TIME (PATIENT) 15.7 SEC (9.7-13.0)
--- NOTE | 2018-08-20 15:27 | EKG ---
Test Reason : Blood Pressure : / mmHG Vent. Rate : 056 BPM Atrial Rate : 056 BPM P-R Int : 168 ms QRS Dur : 084 ms QT Int : 440 ms P-R-T Axes : 085 004 015 degrees QTc Int : 424 ms POOR DATA QUALITY, INTERPRETATION MAY BE ADVERSELY AFFECTED SINUS BRADYCARDIA POSSIBLE ANTERIOR INFARCT (CITED ON OR BEFORE 18-APR-2016) ABNORMAL ECG Confirmed by Ameya Mondragon MD ([id number]) on 08/20/2018 3:26:56 PM Referred By: Confirmed By:Ameya Mondragon MD
--- NOTE | 2018-08-20 16:01 | PDOC ---
Documentation entered by Phuong Childress SCRIBE, acting as scribe for Vera Ragland MD. Vera Ragland MD: This documentation has been prepared by the Monroe cisneros Amanda, SCRIBE, under my direction and personally reviewed by me in its entirety. I confirm that the documentation accurately reflects all work, treatment, procedures, and medical decision making performed by me. Attending Attestation - Resident Resident Name: Chase Su - [facility] HPI: 08/20/18 13:41 The patient is a 72 year old female, with a significant past medical history of DM, Afib, HTN, stroke, seizure, who presents to the emergency department with one month of increasing shortness of breath on exertion and right sided pain and tingling sent to the ED from Dr. Rubio office today. The patient denies chest pain, shortness of breath, headache and dizziness. The patient denies fever, chills, nausea, vomit, diarrhea and constipation. The patient denies dysuria, frequency, urgency and hematuria. Allergies: NKDA - Physicial Exam PE: 08/20/18 13:42 GENERAL: Awake, alert, and fully oriented, in no acute distress HEAD: No signs of trauma EYES: PERRLA, EOMI, sclera anicteric, conjunctiva clear ENT: Auricles normal inspection, hearing grossly normal, nares patent, oropharynx clear without exudates. Moist mucosa NECK: Normal ROM, supple, no lymphadenopathy, JVD, or masses LUNGS: Breath sounds equal, clear to auscultation bilaterally. No wheezes, and no crackles HEART: (+) systolic murmur 2/6. Regular rate and rhythm, normal S1 and S2, no rubs or gallops ABDOMEN: Soft, nontender, normoactive bowel sounds. No guarding, no rebound. No masses EXTREMITIES: Normal range of motion, no edema. No clubbing or cyanosis. No cords, erythema, or tenderness NEUROLOGICAL: (+) oriented x3. answering appropriately. slight word finding difficulty. diminished light touch sensation to entire right side. 5/5 muscle strength to b/l upper extremities. LLE is able to lift against gravity with a slight drift. RLE unable to lift against gravity. Cranial nerves II through XII grossly intact. Normal speech, SKIN: Warm, Dry, normal turgor, no rashes or lesions noted. - Medical Decision Making 08/20/18 15:54 Pt presents to the ED complaining of a one month history of R sided face and body weakness. History of TIA/ stroke in the past. Differential includes Stroke, metabolic abnormality, infection. will check labs and CT head, admit for CVA work up.
--- NOTE | 2018-08-20 17:41 | HP ---
Admitting History and Physical - Primary Care Physician PCP: Kei Marlow - Admission Chief Complaint: R sided numbness and weakness History of Present Illness: Patient is a 72 y/o female with past medical history of DM, Afib, Seizures, HTN , TIA. Patient presented to PMD office earlier today with complaints of R sided numbness and weakness for 1 month with SOB on exertion. Patient states weakness exacerbated with walking and can only walk 2 blocks before experiencing SOB. Patient is out of 6hr window for TPA treatment. Patient denies chest pain, dizziness. Denies nausea, vomiting, abdominal pain. 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 due to microlithiasis, subclinical vs. perforated diverticulum. elev amylase lipase) Renal/: Yes: Renal Inusuff Psych: Yes: Anxiety Endocrine: Yes: Diabetes Mellitus - Past Surgical History Past Surgical History: Yes: AICD, Colonoscopy (04/2014 severe diverticulosis and adhesions w/sigmoid inflamm, int hemorr, hyperplastic polyps icv, melanosis coli ), Hysterectomy, Stent - Smoking History Smoking history: Former smoker Have you smoked in the past 12 months: No Aproximately how many cigarettes per day: 0 If you are a former smoker, when did you quit?: 1985 - Alcohol/Substance Use Hx Alcohol Use: No - Social History Usual Living Arrangement: Yes: Alone ADL: Independent Occupation: No checmical exposure in workplace. History of Recent Travel: No Home Medications - Allergies Allergies/Adverse Reactions: Allergies Allergy/AdvReac Type Severity Reaction Status Date / Time No Known Drug Allergies Allergy Verified 11/17/16 11:54 - Home Medications Home Medications: Ambulatory Orders Carvedilol [Coreg -] 25 mg PO BID tablet 11/21/16 Apixaban [Eliquis -] 2.5 mg PO BID 08/20/18 Atorvastatin Calcium [Lipitor] 10 mg PO DAILY 08/20/18 Ezetimibe/Simvastatin [Ezetimibe-Simvastatin 10-10 mg] 1 each PO DAILY 08/20/18 Hydralazine HCl 10 mg PO BID 08/20/18 Magnesium Oxide [Magnesium] 400 mg PO BID 08/20/18 Sacubitril/Valsartan [Entresto 24 mg-26 mg Tablet] 1 tab PO DAILY 08/20/18 levETIRAcetam [Keppra -] 1,000 mg PO BID 08/20/18 Family Disease History - Family Disease History Family Disease History: CA: Sister (Breast), Other: Son (CVA age 40) Review of Systems - Review of Systems Constitutional: reports: Weakness Eyes: reports: No Symptoms HENT: reports: No Symptoms Neck: reports: No Symptoms Cardiovascular: reports: No Symptoms Respiratory: reports: Cough, SOB on Exertion Gastrointestinal: reports: Diarrhea Genitourinary: reports: Frequency Breasts: reports: No Symptoms Reported Musculoskeletal: reports: Muscle Weakness (R sided) Integumentary: reports: No Symptoms Neurological: reports: Numbness (R sided) Endocrine: reports: No Symptoms Hematology/Lymphatic: reports: No Symptoms Psychiatric: reports: No Symptoms Physical Examination Vital Signs: Vital Signs Temperature 97.4 F L 08/20/18 17:24 Pulse Rate 58 L 08/20/18 17:24 Respiratory Rate 18 08/20/18 13:13 Blood Pressure 149/75 08/20/18 17:24 O2 Sat by Pulse Oximetry (%) 99 08/20/18 17:24 Constitutional: Yes: No Distress, Calm Eyes: Yes: Conjunctiva Clear HENT: Yes: Atraumatic Neck: Yes: Supple Cardiovascular: Yes: Regular Rate and Rhythm Respiratory: Yes: Regular, CTA Bilaterally Gastrointestinal: Yes: Normal Bowel Sounds, Soft Musculoskeletal: Yes: Muscle Weakness Extremities: Yes: WNL Edema: No Neurological: Yes: Alert, Oriented, Weakness (RUE and RLE) Psychiatric: Yes: Alert, Oriented Labs: CBC, BMP 08/20/18 14:00 08/20/18 14:00 Imaging - Results Chest X-ray: Report Reviewed X-ray: Report Reviewed Cat Scan: Report Reviewed Problem List - Problems (1) Weakness Assessment/Plan: -fall precaution -PT -C-Spine CT scan shows no gross fracture, subluxation, or prevertebral soft tissue swelling, C3-4 mild central disc bulge without cord impingement, C4-5 minimal central disc bugle without cord impingement, C5-6 moderate degenerative disc disease and mild central disc bulge without cord impingement, prominent anterior spondylosis from C3-6 Code(s): R53.1 - WEAKNESS (2) Epilepsy Assessment/Plan: -continue Levetiractam Code(s): G40.909 - EPILEPSY, UNSP, NOT INTRACTABLE, WITHOUT STATUS EPILEPTICUS (3) Hyperlipidemia Assessment/Plan: -continue Atorvastatin -lipid profile Code(s): E78.5 - HYPERLIPIDEMIA, UNSPECIFIED (4) Paroxysmal atrial fibrillation Assessment/Plan: -continue Eliquis Code(s): I48.0 - PAROXYSMAL ATRIAL FIBRILLATION (5) TIA (transient ischemic attack) Assessment/Plan: -Neurology and Cardiology consult -Head CT scan shows no acute intracranial pathology -Carotid US ordered -tele monitoring -lipid profile -continue atorvastatin Code(s): G45.9 - TRANSIENT CEREBRAL ISCHEMIC ATTACK, UNSPECIFIED (6) Hypertension Assessment/Plan: -continue Hydralazine and Carvedilol -low Na diet Code(s): I10 - ESSENTIAL (PRIMARY) HYPERTENSION Qualifiers: Hypertension type: essential hypertension Qualified Code(s): I10 - Essential (primary) hypertension Assessment/Plan see problem list dvt ppx
[2018-08-20 18:38] LABS: ALBUMIN 3.7 g/dl (3.4-5.0); ALK PHOS 91 U/L (45-117); ANION GAP 5 MMOL/L (8-16); BILIRUBIN,TOTAL 0.4 mg/dL (0.2-1); BLOOD UREA NITROGEN 19 mg/dL (7-18); CALCIUM 9.5 mg/dL (8.5-10.1); CHLORIDE 106 mmol/L (98-107); CO2 27 mmol/L (21-32); CREATININE 1.2 mg/dL (0.55-1.3); GLUCOSE,RANDOM 83 mg/dL (74-106); POTASSIUM 4.7 mmol/L (3.5-5.1); SGOT/AST 35 U/L (15-37); SGPT/ALT 31 U/L (13-61); SODIUM 138 mmol/L (136-145)
[2018-08-20] MEDS: APIXABAN 2.5 MG TABLET PO SCH (22:04)
[2018-08-20] MEDS: CARVEDILOL 25 MG TABLET (FP) PO SCH (22:04)
[2018-08-20] MEDS: MAGNESIUM OXIDE 400 MG TABLET (FP) PO SCH (22:04)
[2018-08-20] MEDS: levETIRAcetam 500 MG TABLET (FP) PO SCH (22:04)
[2018-08-20] MEDS: INSULIN SLIDING SCALE (NOVOLOG) 1 VIAL SQ SCH (22:04)
[2018-08-20] MEDS: hydrALAZINE HCL 10 MG TABLET PO SCH (22:04)
[2018-08-20] MEDS: MELATONIN 5 MG TABLETS PO PRN (22:21)
[2018-08-20 22:37] LABS: ALBUMIN 3.4 g/dl (3.4-5.0); ALK PHOS 90 U/L (45-117); ANION GAP 6 MMOL/L (8-16); BILIRUBIN,TOTAL 0.4 mg/dL (0.2-1); BLOOD UREA NITROGEN 20 mg/dL (7-18); CALCIUM 9.1 mg/dL (8.5-10.1); CHLORIDE 107 mmol/L (98-107); CO2 27 mmol/L (21-32); CREATININE 1.3 mg/dL (0.55-1.3); GLUCOSE,RANDOM 132 mg/dL (74-106); POTASSIUM 4.3 mmol/L (3.5-5.1); SGOT/AST 32 U/L (15-37); SGPT/ALT 29 U/L (13-61); SODIUM 140 mmol/L (136-145); TOT PROT 7.2 g/dl (6.4-8.2)
--- NOTE | 2018-08-20 22:42 | CON.CARD ---
Consult - History of Present Illness History of Present Illness: Patient is a 72 y/o female with past medical history of DM, Afib, Seizures, HTN , TIA. Patient presented to PMD office earlier today with complaints of R sided numbness and weakness for 1 month with SOB on exertion. Patient states weakness exacerbated with walking and can only walk 2 blocks before experiencing SOB. Patient is out of 6hr window for TPA treatment. Patient denies chest pain, dizziness. Denies nausea, vomiting, abdominal pain. 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 due to microlithiasis, subclinical vs. perforated diverticulum. elev amylase lipase) Renal/: Yes: Renal Inusuff ...: No Psych: Yes: Anxiety Endocrine: Yes: Diabetes Mellitus - Past Surgical History Past Surgical History: Yes: AICD, Colonoscopy (04/2014 severe diverticulosis and adhesions w/sigmoid inflamm, int hemorr, hyperplastic polyps icv, melanosis coli ), Hysterectomy, Stent - Alcohol/Substance Use Hx Alcohol Use: No - Smoking History Smoking history: Never smoked Have you smoked in the past 12 months: No Aproximately how many cigarettes per day: 0 If you are a former smoker, when did you quit?: 1985 - Social History Usual Living Arrangement: Alone ADL: Independent Occupation: No checmical exposure in workplace. History of Recent Travel: No Home Medications - Allergies Allergies/Adverse Reactions: Allergies Allergy/AdvReac Type Severity Reaction Status Date / Time No Known Drug Allergies Allergy Verified 11/17/16 11:54 - Home Medications Home Medications: Ambulatory Orders Carvedilol [Coreg -] 25 mg PO BID tablet 11/21/16 Apixaban [Eliquis -] 2.5 mg PO BID 08/20/18 Atorvastatin Calcium [Lipitor] 10 mg PO DAILY 08/20/18 Ezetimibe/Simvastatin [Ezetimibe-Simvastatin 10-10 mg] 1 each PO DAILY 08/20/18 Hydralazine HCl 10 mg PO BID 08/20/18 Magnesium Oxide [Magnesium] 400 mg PO BID 08/20/18 Sacubitril/Valsartan [Entresto 24 mg-26 mg Tablet] 1 tab PO DAILY 08/20/18 levETIRAcetam [Keppra -] 1,000 mg PO BID 08/20/18 Family Disease History - Family Disease History Family Disease History: CA: Sister (Breast), Other: Son (CVA age 40) Vital Signs: Vital Signs Temperature 98.1 F 08/20/18 22:06 Pulse Rate 64 08/20/18 22:06 Respiratory Rate 20 08/20/18 22:06 Blood Pressure 153/69 08/20/18 22:06 O2 Sat by Pulse Oximetry (%) 99 08/20/18 22:06 - Other Data Labs, Other Data: CBC, BMP 08/20/18 14:00 08/20/18 21:30 INR, PTT INR 1.33 (0.83-1.09) H 08/20/18 14:00 Troponin, BNP 08/20/18 08/20/18 08/20/18 14:00 17:50 21:30 Troponin I Cancelled < 0.02 < 0.02 Troponin, BNP 08/20/18 08/20/18 08/20/18 14:00 17:50 21:30 Troponin I Cancelled < 0.02 < 0.02
--- NOTE | 2018-08-21 00:57 | CON.CARD ---
Consult Consult Specialty:: cardiology Reason for Consultation:: shortness of breath - History of Present Illness Chief Complaint: shortness of breath x 1 month History of Present Illness: Ms. Mcleod is a 72 year old black woman, with a PMHx of CAD (2VD, including 70 % proximal LAD and 40% mid RCA stenoses on 07/2014 [facility] coronary angiogram). systolic CHF (s/p [employer] ICD 10/2014 at [facility])) , aortic stenosis (most recently moderate), ? DM, Afib, HTN, stroke, seizure, who presents to the emergency department with one month of increasing shortness of breath on exertion and right sided pain and tingling sent to the ED from Dr. Rubio office today. She was noted to have elevated blood pressure in the ER. 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 due to microlithiasis, subclinical vs. perforated diverticulum. elev amylase lipase) Renal/: Yes: Renal Inusuff Reproductive: Yes: Postmenopausal ...: No Psych: Yes: Anxiety Endocrine: Yes: Diabetes Mellitus - Past Surgical History Past Surgical History: Yes: AICD, Colonoscopy (04/2014 severe diverticulosis and adhesions w/sigmoid inflamm, int hemorr, hyperplastic polyps icv, melanosis coli ), Hysterectomy, Stent - Alcohol/Substance Use Hx Alcohol Use: No - Smoking History Smoking history: Never smoked Have you smoked in the past 12 months: No Aproximately how many cigarettes per day: 0 If you are a former smoker, when did you quit?: 1985 - Social History Usual Living Arrangement: Alone ADL: Independent Occupation: No checmical exposure in workplace. History of Recent Travel: No Home Medications - Allergies Allergies/Adverse Reactions: Allergies Allergy/AdvReac Type Severity Reaction Status Date / Time No Known Drug Allergies Allergy Verified 11/17/16 11:54 - Home Medications Home Medications: Ambulatory Orders Carvedilol [Coreg -] 25 mg PO BID tablet 11/21/16 Atorvastatin Calcium [Lipitor] 10 mg PO DAILY 08/20/18 Ezetimibe/Simvastatin [Ezetimibe-Simvastatin 10-10 mg] 1 each PO DAILY 08/20/18 Hydralazine HCl 10 mg PO BID 08/20/18 Magnesium Oxide [Magnesium] 400 mg PO BID 08/20/18 Sacubitril/Valsartan [Entresto 24 mg-26 mg Tablet] 1 tab PO DAILY 08/20/18 Apixaban [Eliquis -] 2.5 mg PO BID #30 tab 08/22/18 Ezetimibe [Zetia -] 10 mg PO DAILY tablet 08/22/18 levETIRAcetam [Keppra -] 1,000 mg PO BID #30 tab 08/22/18 Family Disease History - Family Disease History Family Disease History: CA: Sister (Breast), Other: Son (CVA age 40) Review of Systems - Review of Systems Eyes: reports: No Symptoms HENT: reports: No Symptoms Neck: reports: No Symptoms Cardiovascular: reports: Shortness of Breath Respiratory: reports: Orthopnea, PND, SOB Gastrointestinal: reports: No Symptoms Genitourinary: reports: No Symptoms Breasts: reports: No Symptoms Reported Musculoskeletal: reports: Muscle Weakness Integumentary: reports: No Symptoms Neurological: reports: Weakness Endocrine: reports: No Symptoms Hematology/Lymphatic: reports: No Symptoms Psychiatric: reports: Anxiety - Risk Factors Known Risk Factors: Yes: Age, Diabetes Mellitus, Hypercholesterolemia, Hypertension, Prior [place] /Emb Stroke, Race, Other (CHF) Vital Signs: Vital Signs Temperature 98.1 F 08/20/18 22:06 Pulse Rate 64 08/20/18 22:06 Respiratory Rate 20 08/20/18 22:06 Blood Pressure 153/69 08/20/18 22:06 O2 Sat by Pulse Oximetry (%) 99 08/20/18 22:06 - Other Data Labs, Other Data: CBC, BMP 08/20/18 14:00 08/20/18 21:30 INR, PTT INR 1.33 (0.83-1.09) H 08/20/18 14:00 Troponin, BNP 08/20/18 08/20/18 08/20/18 14:00 17:50 21:30 Troponin I Cancelled < 0.02 < 0.02 Troponin, BNP 08/20/18 08/20/18 08/20/18 14:00 17:50 21:30 Troponin I Cancelled < 0.02 < 0.02 Imaging - Results Chest X-ray: Image Reviewed EKG: Image Reviewed Problem List - Problems (1) History of TIA (transient ischemic attack) Code(s): Z86.73 - PRSNL HX OF TIA (TIA), AND CEREB INFRC W/O RESID DEFICITS (2) Weakness Assessment/Plan: right-sided limited motion of neck extending into right hand; off and on for weeks Code(s): R53.1 - WEAKNESS (3) Acute on chronic systolic and diastolic heart failure, NYHA class 4 Assessment/Plan: Continue Entresto, carvedilol, hydralazine. Add isordil. (If BUN/Cr and K+ remain WNL, may later add spironolactone, though past history may have shown periods of hyperkalemia; close f/u of BUN/Cr and electrolytes will be coffey). TNI < 0.02 x 2. F/u ECHO for LVEF, valve status. F/u BUN/Cr, electrolytes, daily weight, Is and Os. Code(s): I50.43 - ACUTE ON CHRONIC COMBINED SYSTOLIC AND DIASTOLIC HRT FAIL (4) Atrial fibrillation and flutter Assessment/Plan: On carvedilol for hr control. On apixaban for anticoagulation. Code(s): I48.91 - UNSPECIFIED ATRIAL FIBRILLATION; I48.92 - UNSPECIFIED ATRIAL FLUTTER (5) CVA (cerebral vascular accident) Code(s): I63.9 - CEREBRAL INFARCTION, UNSPECIFIED (6) Coronary artery disease Assessment/Plan: F?u recent cardiac workup. Code(s): I25.10 - ATHSCL HEART DISEASE OF [place] CORONARY ARTERY W/O ANG PCTRS Qualifiers: Coronary Disease-Associated Artery/Lesion type: [place] artery [place] vs. transplanted heart: [place] heart Associated angina: without angina Qualified Code(s): I25.10 - Atherosclerotic heart disease of [place] coronary artery without angina pectoris (7) Gait difficulty Code(s): R26.9 - UNSPECIFIED ABNORMALITIES OF GAIT AND MOBILITY (8) Hyperlipidemia Code(s): E78.5 - HYPERLIPIDEMIA, UNSPECIFIED (9) ICD (implantable cardioverter-defibrillator) in place Code(s): Z95.810 - PRESENCE OF AUTOMATIC (IMPLANTABLE) CARDIAC DEFIBRILLATOR (10) Mitral regurgitation and aortic stenosis Code(s): I08.0 - RHEUMATIC DISORDERS OF BOTH MITRAL AND AORTIC VALVES (11) Shortness of breath Code(s): R06.02 - SHORTNESS OF BREATH (12) Diabetes mellitus Code(s): E11.9 - TYPE 2 DIABETES MELLITUS WITHOUT COMPLICATIONS Qualifiers: Diabetes mellitus type: type 2 Diabetes mellitus complication status: with other specified complication (13) Hypertension Code(s): I10 - ESSENTIAL (PRIMARY) HYPERTENSION Qualifiers: Hypertension type: essential hypertension Qualified Code(s): I10 - Essential (primary) hypertension (14) Seizures Code(s): R56.9 - UNSPECIFIED CONVULSIONS (15) Aortic stenosis Assessment/Plan: Hx moderate aortric stenosis,f/u ECHO (hx reduced LVEF; in the past, pt has deferred further study of the valve). Code(s): I35.0 - NONRHEUMATIC AORTIC (VALVE) STENOSIS
[2018-08-21 05:56] LABS: BASO % 0.4 % (0-2.0); EOS % 3.9 % (0-4.5); HEMATOCRIT 33.5 % (32.4-45.2); LYMPH % 42.5 % (8-40); MCH 29.6 pg (25.7-33.7); MEAN CELL VOLUME 89.8 fl (80-96); MEAN PLT VOLUME 8.3 fl (7.5-11.1); MONO % 16.8 % (3.8-10.2); NEUT % 36.4 % (42.8-82.8); PLATELET COUNT 195 K/MM3 (134-434); RBC 3.73 M/mm3 (3.60-5.2); RDW 13.6 % (11.6-15.6)
[2018-08-21] MEDS: INSULIN SLIDING SCALE (NOVOLOG) 1 VIAL SQ SCH ×4 (06:04→21:06)
[2018-08-21 06:27] LABS: ALBUMIN 3.1 g/dl (3.4-5.0); ALK PHOS 84 U/L (45-117); ANION GAP 6 MMOL/L (8-16); BILIRUBIN,TOTAL 0.3 mg/dL (0.2-1); BLOOD UREA NITROGEN 19 mg/dL (7-18); CALCIUM 9.1 mg/dL (8.5-10.1); CHLORIDE 107 mmol/L (98-107); CHOLESTEROL 182 mg/dL (50-200); CO2 27 mmol/L (21-32); CREATININE 1.2 mg/dL (0.55-1.3); GLUCOSE,RANDOM 97 mg/dL (74-106); HDL CHOLESTEROL 47 mg/dL (40-60); MAGNESIUM 2.3 mg/dL (1.8-2.4); POTASSIUM 4.2 mmol/L (3.5-5.1); SGOT/AST 33 U/L (15-37); SGPT/ALT 27 U/L (13-61); SODIUM 140 mmol/L (136-145); TOT PROT 6.8 g/dl (6.4-8.2); TRIGLYCERIDES 89 mg/dL (0-150)
--- NOTE | 2018-08-21 08:15 | CON.NEURO ---
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 due to microlithiasis, subclinical vs. perforated diverticulum. elev amylase lipase) Renal/: Yes: Renal Inusuff ...: No Psych: Yes: Anxiety Endocrine: Yes: Diabetes Mellitus - Past Surgical History Past Surgical History: Yes: AICD, Colonoscopy (04/2014 severe diverticulosis and adhesions w/sigmoid inflamm, int hemorr, hyperplastic polyps icv, melanosis coli ), Hysterectomy, Stent - Alcohol/Substance Use Hx Alcohol Use: No - Smoking History Smoking history: Never smoked Have you smoked in the past 12 months: No Aproximately how many cigarettes per day: 0 If you are a former smoker, when did you quit?: 1985 - Social History Usual Living Arrangement: Alone ADL: Independent Occupation: No checmical exposure in workplace. History of Recent Travel: No Home Medications - Allergies Allergies/Adverse Reactions: Allergies Allergy/AdvReac Type Severity Reaction Status Date / Time No Known Drug Allergies Allergy Verified 11/17/16 11:54 - Home Medications Home Medications: Ambulatory Orders Carvedilol [Coreg -] 25 mg PO BID tablet 11/21/16 Apixaban [Eliquis -] 2.5 mg PO BID 08/20/18 Atorvastatin Calcium [Lipitor] 10 mg PO DAILY 08/20/18 Ezetimibe/Simvastatin [Ezetimibe-Simvastatin 10-10 mg] 1 each PO DAILY 08/20/18 Hydralazine HCl 10 mg PO BID 08/20/18 Magnesium Oxide [Magnesium] 400 mg PO BID 08/20/18 Sacubitril/Valsartan [Entresto 24 mg-26 mg Tablet] 1 tab PO DAILY 08/20/18 levETIRAcetam [Keppra -] 1,000 mg PO BID 08/20/18 Family Disease History - Family Disease History Family Disease History: CA: Sister (Breast), Other: Son (CVA age 40) Physical Exam-Neuro Vital Signs: Vital Signs Temperature 97.8 F 08/21/18 05:43 Pulse Rate 58 L 08/21/18 05:43 Respiratory Rate 20 08/21/18 05:43 Blood Pressure 129/65 08/21/18 05:43 O2 Sat by Pulse Oximetry (%) 99 08/20/18 22:06 Labs: CBC, BMP 08/21/18 05:30 08/21/18 05:30 INR, PTT INR 1.33 (0.83-1.09) H 08/20/18 14:00 Assessment/Plan cc New onset right sided weaknes and numbnes for one month HPI 72 year old AA female , history of DM, Afib,Epilepsy, HTN, TIA. She takes eliquis and statin at home. For one month she has been experiencing right arm, and leg and face numbness and wekness. She hs been having difficulty walking . She is admitted for stroke work up, she had ct head and ct c spine and wa sunremarkable. She had caroitd ultrasound is normal. PMH TIA, CAD, HTN, HLD, Diverticlitis,DM SH: AICD, Colonoscopy (04/2014 severe diverticulosis and adhesions w/sigmoid inflamm, int hemorr, hyperplastic polyps icv, melanosis coli), Hysterectomy, Stent SH,FH,PH was reviewed in chart HOME Medicaitons Carvedilol [Coreg -] 25 mg PO BID tablet 11/21/16 Apixaban [Eliquis -] 2.5 mg PO BID 08/20/18 Atorvastatin Calcium [Lipitor] 10 mg PO DAILY 08/20/18 Ezetimibe/Simvastatin [Ezetimibe-Simvastatin 10-10 mg] 1 each PO DAILY 08/20/18 Hydralazine HCl 10 mg PO BID 08/20/18 Magnesium Oxide [Magnesium] 400 mg PO BID 08/20/18 Sacubitril/Valsartan [Entresto 24 mg-26 mg Tablet] 1 tab PO DAILY 08/20/18 levETIRAcetam [Keppra -] 1,000 mg PO BID 08/20/18 NEUROLOGICAL EXAMINATION Alert oriented x 3, speech is normal, able to swallow, no neck stiffness eomi, pupils reactive no face asymmetry Motor : There is mild right arm and leg weakness ( Grad e4+) Sensation is diminished on right arm and leg NIH score is 4 ct head unremarkable carotid ultrasound no stenosis Assessment/Plan 72 year old female history of HTN,DM, CAD, Stroke, s/p defibrillator and stent placement in past. Patient has right sided sensory motor symptoms, most likey ot be lacunar syndrome, and cant get mri Plan: she cant get mri of brain -Consider adding aspirin ( 81mg ) to current medication, she is already on eliquis , and it would increase risk of bleed , it was discuss with patient and she is reluctant at this time and would like ot discuss with pmd - PT and consider rehab -no need for furhter work up from neuro point of view Thanking you so much Ja Humphrey MD
--- NOTE | 2018-08-21 08:31 | PN ---
Progress Note, Physician - Current Medication List Current Medications: Active Medications Apixaban (Eliquis -) 2.5 mg PO BID [facility] Last Admin: 08/20/18 22:04 Dose: 2.5 mg Atorvastatin Calcium (Lipitor -) 10 mg PO HS [facility] Carvedilol (Coreg -) 25 mg PO BID [facility] Last Admin: 08/20/18 22:04 Dose: 25 mg Ezetimibe (Zetia -) 10 mg PO DAILY [facility] Hydralazine HCl (Apresoline -) 10 mg PO BID [facility] Last Admin: 08/20/18 22:04 Dose: 10 mg Insulin Aspart (Novolog Vial Sliding Scale -) 1 vial SQ [facility]; Protocol Last Admin: 08/21/18 06:04 Dose: Not Given Levetiracetam (Keppra -) 1,000 mg PO BID [facility] Last Admin: 08/20/18 22:04 Dose: 1,000 mg Magnesium Oxide (Mag-Ox -) 400 mg PO BID [facility] Last Admin: 08/20/18 22:04 Dose: 400 mg Melatonin (Melatonin) 10 mg PO HS PRN PRN Reason: INSOMNIA Last Admin: 08/20/18 22:21 Dose: 10 mg Sacubitril/Valsartan (Entresto 24 Mg-26 Mg Tablet) 1 tab PO DAILY [facility] - Objective Vital Signs: Vital Signs Temperature 97.8 F 08/21/18 05:43 Pulse Rate 58 L 08/21/18 05:43 Respiratory Rate 20 08/21/18 05:43 Blood Pressure 129/65 08/21/18 05:43 O2 Sat by Pulse Oximetry (%) 99 08/20/18 22:06 Cardiovascular: Yes: S1, S2 Respiratory: Yes: Regular, CTA Bilaterally Gastrointestinal: Yes: Normal Bowel Sounds, Soft. No: Tenderness Neurological: Yes: Alert, Oriented, Tingling (rt side), Weakness Labs: CBC, BMP 08/21/18 05:30 08/21/18 05:30 INR, PTT INR 1.33 (0.83-1.09) H 08/20/18 14:00 Problem List - Problems (1) CVA (cerebral vascular accident) Assessment/Plan: -s/s c/cva--lacunar--unable to do mri -Emg--PT -Neurology and Cardiology consult appreciated -Head CT scan shows no acute intracranial pathology -Carotid US ordered -tele monitoring -lipid profile -continue atorvastatin -asa d/w pt-hesitent Code(s): I63.9 - CEREBRAL INFARCTION, UNSPECIFIED (2) Weakness Assessment/Plan: -fall precaution -PT -C-Spine CT scan shows no gross fracture, subluxation, or prevertebral soft tissue swelling, C3-4 mild central disc bulge without cord impingement, C4-5 minimal central disc bugle without cord impingement, C5-6 moderate degenerative disc disease and mild central disc bulge without cord impingement, prominent anterior spondylosis from C3-6 EMG Code(s): R53.1 - WEAKNESS (3) ICD (implantable cardioverter-defibrillator) in place Code(s): Z95.810 - PRESENCE OF AUTOMATIC (IMPLANTABLE) CARDIAC DEFIBRILLATOR (4) Paroxysmal atrial fibrillation Assessment/Plan: -continue Eliquis Code(s): I48.0 - PAROXYSMAL ATRIAL FIBRILLATION (5) Diabetes mellitus Code(s): E11.9 - TYPE 2 DIABETES MELLITUS WITHOUT COMPLICATIONS Qualifiers: Diabetes mellitus type: type 2 Diabetes mellitus complication status: with other specified complication (6) Hypertension Assessment/Plan: -continue Hydralazine and Carvedilol -low Na diet Code(s): I10 - ESSENTIAL (PRIMARY) HYPERTENSION Qualifiers: Hypertension type: essential hypertension Qualified Code(s): I10 - Essential (primary) hypertension
[2018-08-21] MEDS: APIXABAN 2.5 MG TABLET PO SCH ×2 (09:35→21:06)
[2018-08-21] MEDS: CARVEDILOL 25 MG TABLET (FP) PO SCH ×2 (09:35→21:06)
[2018-08-21] MEDS: levETIRAcetam 500 MG TABLET (FP) PO SCH ×2 (09:35→21:06)
[2018-08-21] MEDS: hydrALAZINE HCL 10 MG TABLET PO SCH ×2 (09:35→21:06)
[2018-08-21] MEDS: EZETIMIBE 10 MG TABLET (FP) PO SCH (09:36)
[2018-08-21] MEDS: MAGNESIUM OXIDE 400 MG TABLET (FP) PO SCH ×2 (09:36→21:06)
[2018-08-21] MEDS ORDERED: SACUBITRIL/VALSARTAN 24 MG-26 MG TABLET PO SCH (10:00)
--- NOTE | 2018-08-21 11:39 | PN ---
Progress Note, Physician History of Present Illness: Ms. Mcleod is a 72 year old black woman, with a PMHx of CAD. systolic CHF (s/ p ICD),? DM, Afib, HTN, stroke, seizure, who presents to the emergency department with one month of increasing shortness of breath on exertion and right sided pain and tingling sent to the ED from Dr. Rubio office today. She was noted to have elevated blood pressure in the ER. - Current Medication List Current Medications: Active Medications Apixaban (Eliquis -) 2.5 mg PO BID [facility] Last Admin: 08/21/18 09:35 Dose: 2.5 mg Atorvastatin Calcium (Lipitor -) 10 mg PO [facility] Carvedilol (Coreg -) 25 mg PO BID [facility] Last Admin: 08/21/18 09:35 Dose: 25 mg Ezetimibe (Zetia -) 10 mg PO DAILY [facility] Last Admin: 08/21/18 09:36 Dose: 10 mg Hydralazine HCl (Apresoline -) 10 mg PO BID [facility] Last Admin: 08/21/18 09:35 Dose: 10 mg Insulin Aspart (Novolog Vial Sliding Scale -) 1 vial SQ [facility]; Protocol Last Admin: 08/21/18 06:04 Dose: Not Given Levetiracetam (Keppra -) 1,000 mg PO BID [facility] Last Admin: 08/21/18 09:35 Dose: 1,000 mg Magnesium Oxide (Mag-Ox -) 400 mg PO BID [facility] Last Admin: 08/21/18 09:36 Dose: 400 mg Melatonin (Melatonin) 10 mg PO HS PRN PRN Reason: INSOMNIA Last Admin: 08/20/18 22:21 Dose: 10 mg Sacubitril/Valsartan (Entresto 24 Mg-26 Mg Tablet) 1 tab PO DAILY [facility] - Objective Vital Signs: Vital Signs Temperature 98.3 F 08/21/18 09:39 Pulse Rate 61 08/21/18 09:39 Respiratory Rate 16 08/21/18 09:39 Blood Pressure 113/55 L 08/21/18 09:39 O2 Sat by Pulse Oximetry (%) 99 08/21/18 10:00 Eyes: Yes: WNL, Conjunctiva Clear, EOM Intact HENT: Yes: WNL, Atraumatic, Normocephalic Neck: Yes: WNL, Supple, Trachea Midline Cardiovascular: Yes: WNL, Regular Rate and Rhythm Respiratory: Yes: Diminished Gastrointestinal: Yes: WNL, Normal Bowel Sounds Genitourinary: Yes: WNL Musculoskeletal: Yes: WNL Extremities: Yes: WNL Edema: Yes Integumentary: Yes: WNL Neurological: Yes: WNL, Alert, Oriented ...Motor Strength: WNL Psychiatric: Yes: WNL Labs: CBC, BMP 08/21/18 05:30 08/21/18 05:30 INR, PTT INR 1.33 (0.83-1.09) H 08/20/18 14:00 Assessment/Plan - Problems (1) History of TIA (transient ischemic attack) Code(s): Z86.73 - PRSNL HX OF TIA (TIA), AND CEREB INFRC W/O RESID DEFICITS (2) Weakness Code(s): R53.1 - WEAKNESS (3) Acute on chronic systolic and diastolic heart failure, NYHA class 4 Assessment/Plan: Continue Entresto, carvedilol, hydralazine. Add isordil. (If BUN/Cr and K+ remain WNL, may later add spironolactone, though past history may have shown periods of hyperkalemia; close f/u of BUN/Cr and electrolytes will be coffey). TNI < 0.02 x 2. F/u ECHO for LVEF, valve status. F/u BUN/Cr, electrolytes, daily weight, Is and Os. Code(s): I50.43 - ACUTE ON CHRONIC COMBINED SYSTOLIC AND DIASTOLIC HRT FAIL (4) Atrial fibrillation and flutter Assessment/Plan: On carvedilol for hr control. On apixaban for anticoagulation. Code(s): I48.91 - UNSPECIFIED ATRIAL FIBRILLATION; I48.92 - UNSPECIFIED ATRIAL FLUTTER (5) CVA (cerebral vascular accident) Code(s): I63.9 - CEREBRAL INFARCTION, UNSPECIFIED (6) Coronary artery disease Code(s): I25.10 - ATHSCL HEART DISEASE OF [place] CORONARY ARTERY W/O ANG PCTRS Qualifiers: Coronary Disease-Associated Artery/Lesion type: [place] artery [place] vs. transplanted heart: [place] heart Associated angina: without angina Qualified Code(s): I25.10 - Atherosclerotic heart disease of [place] coronary artery without angina pectoris (7) Gait difficulty Code(s): R26.9 - UNSPECIFIED ABNORMALITIES OF GAIT AND MOBILITY (8) Hyperlipidemia Code(s): E78.5 - HYPERLIPIDEMIA, UNSPECIFIED (9) ICD (implantable cardioverter-defibrillator) in place Code(s): Z95.810 - PRESENCE OF AUTOMATIC (IMPLANTABLE) CARDIAC DEFIBRILLATOR (10) Mitral regurgitation and aortic stenosis Code(s): I08.0 - RHEUMATIC DISORDERS OF BOTH MITRAL AND AORTIC VALVES (11) Shortness of breath Code(s): R06.02 - SHORTNESS OF BREATH (12) Diabetes mellitus Code(s): E11.9 - TYPE 2 DIABETES MELLITUS WITHOUT COMPLICATIONS Qualifiers: Diabetes mellitus type: type 2 Diabetes mellitus complication status: with other specified complication (13) Hypertension Code(s): I10 - ESSENTIAL (PRIMARY) HYPERTENSION Qualifiers: Hypertension type: essential hypertension Qualified Code(s): I10 - Essential (primary) hypertension (14) Seizures Code(s): R56.9 - UNSPECIFIED CONVULSIONS
--- NOTE | 2018-08-21 13:51 | CONSULT ---
Consult Consult Specialty:: PM&R Dr aDsh for Dr Palma Reason for Consultation:: EMG - History of Present Illness History of Present Illness: This is a 72 year old woman with a medical history of CVA/ TIA, seizures, anxiety, A fib s/p AICD, CHF, CAD s/p stent, mitral insufficiency, aortic stenosis, HTN, HLD, diverticulosis, diverticulitis, pancreatitis, renal insufficiency, DM, who presented to the ED 08/20/18 with R face, RUE and RLE numbness/ stiffness x1 month with [place]. Cardiology was consulted for SOB, who attributed it to possible acute CHF exacerbation. CT neck showed multilevel disc bulges without cord or nerve root impingement, as well as C5-C6 DDD with mild L foraminal narrowing and facet arthropathy. CT head showed no acute pathology. Neurology was consulted, who felt she had symptoms of lacunar syndrome; MRI contraindicated due to AICD. Physiatry is being requested to perform EMG. 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 due to microlithiasis, subclinical vs. perforated diverticulum. elev amylase lipase) Renal/: Yes: Renal Inusuff ...: No Psych: Yes: Anxiety Endocrine: Yes: Diabetes Mellitus - Past Surgical History Past Surgical History: Yes: AICD, Colonoscopy (04/2014 severe diverticulosis and adhesions w/sigmoid inflamm, int hemorr, hyperplastic polyps icv, melanosis coli ), Hysterectomy, Stent - Alcohol/Substance Use Hx Alcohol Use: No - Smoking History Smoking history: Never smoked Have you smoked in the past 12 months: No Aproximately how many cigarettes per day: 0 If you are a former smoker, when did you quit?: 1985 - Social History Usual Living Arrangement: Alone (in apartment with 4 steps to elevator, 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 History of Recent Travel: No Home Medications - Allergies Allergies/Adverse Reactions: Allergies Allergy/AdvReac Type Severity Reaction Status Date / Time No Known Drug Allergies Allergy Verified 11/17/16 11:54 - Home Medications Home Medications: Ambulatory Orders Carvedilol [Coreg -] 25 mg PO BID tablet 11/21/16 Apixaban [Eliquis -] 2.5 mg PO BID 08/20/18 Atorvastatin Calcium [Lipitor] 10 mg PO DAILY 08/20/18 Ezetimibe/Simvastatin [Ezetimibe-Simvastatin 10-10 mg] 1 each PO DAILY 08/20/18 Hydralazine HCl 10 mg PO BID 08/20/18 Magnesium Oxide [Magnesium] 400 mg PO BID 08/20/18 Sacubitril/Valsartan [Entresto 24 mg-26 mg Tablet] 1 tab PO DAILY 08/20/18 levETIRAcetam [Keppra -] 1,000 mg PO BID 08/20/18 Family Disease History - Family Disease History Family Disease History: [place]: Sister (Breast), Other: Son (CVA age 40) Review of Systems Findings/Remarks: Denies fevers, chills, changes in vision/ hearing/ mood, CP, SOB, abdominal pain , nausea, vomiting, constipation, diarrhea, dysuria. Notes [place], R face/ RUE/ RLE stiffness/ tightness/ weakness Physical Exam Vital Signs: Vital Signs Temperature 98.3 F 08/21/18 09:39 Pulse Rate 61 08/21/18 09:39 Respiratory Rate 16 08/21/18 09:39 Blood Pressure 113/55 L 08/21/18 09:39 O2 Sat by Pulse Oximetry (%) 99 08/21/18 10:00 Musculoskeletal: Yes: Other (General: calm elderly AAF lying in bed NAD, AAO x3 N/M: 4/5 R delt/ HF then 4+/5 RUE/ RLE, 5-/5 LUE/ LLE Extremities: no BLE pitting edema, no B calf tenderness) Labs: CBC, BMP 08/21/18 05:30 08/21/18 05:30 Imaging - Results Cat Scan: Report Reviewed (as per HPI) Assessment/Plan Electrodiagnotics were performed, please see scanned print-outs for further details. There is no electrophysiological evidence of a cervical or lumbar radiculopathy. There is possible mild R carpel tunnel syndrome and R peroneal motor neuropathy. Impression: 1) Deficits mobility/ ADLs 2) Gait abnormality 3) Likely lacunar CVA with hx CVA/ TIA/ seizures 4) CHF exarbation with hx A fib s/p AICD, CHF, CAD s/p stent, mitral insufficiency, aortic stenosis, HTN, HLD 5) Cervical DDD/ DJD 6) R mild carpel tunnel syndrome and R peroneal motor mononeuropathy 7) hx anxiety 8) hx diverticulosis, diverticulitis, pancreatitis 9) hx renal insufficiency 10) DM 11) Obesity 12) No documented flu shot, up to date pneumovax Recommendations: 1) PT for stretching strengthening ROM endurance and functional mobility 2) Falls, safety precautions 3) Cardiac, diabetic precautions 4) DVT ppx: on Eliquis 5) Denies constipation on current bowel regimen 6) Skin protection 7) Nutrition consult for obesity 8) Continue plan per primary team 9) Discharge planning: depending on her progress with therapy, she may be able to return home with services versus short- course inpatient rehabilitation once medically stable Thank you for this referral.
--- NOTE | 2018-08-21 15:24 | ECHO ---
Name: ENRIQUE RASHID Exam:Adult Echocardiogram Study Date: 08/21/2018 02:02 PM Age: 72 yrs Reason For Study: ATRIAL FIBRILLATION Height: 63 in Weight: 168 lb BSA: 1.8 m2 MMode/2D Measurements & Calculations IVSd: 0.96 cm Ao root diam: 2.5 cm LVIDd: 4.9 cm LA dimension: 3.5 cm LVIDs: 3.2 cm LVPWd: 0.85 cm EDV(Teich): 111.0 ml LVOT diam: 2.3 cm ESV(Teich): 41.9 ml Doppler Measurements & Calculations MV E max andrés: 108.6 cm/sec Ao V2 max: 276.0 cm/sec MV A max andrés: 72.1 cm/sec Ao max P.5 mmHg MV E/A: 1.5 Ao V2 mean: 205.2 cm/sec MV dec time: 0.19 sec Ao mean P.6 mmHg Ao V2 VTI: 75.9 cm SRAVANI(I,D): 0.92 cm2 SRAVANI(V,D): 1.1 cm2 LV V1 max P.1 mmHg MR max andrés: 493.0 cm/sec LV V1 mean P.1 mmHg MR max P.3 mmHg LV V1 max: 72.8 cm/sec LV V1 mean: 47.8 cm/sec LV V1 VTI: 16.8 cm SV(LVOT): 69.5 ml TR max andrés: 268.2 cm/sec TR max P.9 mmHg PI end-d andrés: 109.9 cm/sec Med Peak E' Andrés: 4.0 cm/sec Med E/e': 27.3 Lat Peak E' Andrés: 6.0 cm/sec Lat E/e': 18.1 Procedure A two-dimensional transthoracic echocardiogram with color flow and Doppler was performed. The study w as technically difficult with many images being suboptimal in quality. Left Ventricle The left ventricle is grossly normal size. Left ventricular systolic function is mild to moderately r educed. There is mild to moderate global hypokinesis of the left ventricle. Regional wall motion abnormalitie s cannot be excluded due to limited visualization. Right Ventricle The right ventricle is not well visualized. There is a pacemaker lead in the right ventricle. Atria Normal left and right atrial size and function. Mitral Valve There is mild mitral valve thickening. There is no mitral valve stenosis. There is moderate mitral regurgitation. Tricuspid Valve There is mild tricuspid valve thickening. There is no tricuspid stenosis. There is moderate tricuspid regurgitation. Right ventricular systolic pressure is normal. Aortic Valve There is moderate aortic valve thickening. There is moderate aortic sclerosis.;. Moderate to severe v alvular aortic stenosis. No aortic regurgitation is present. Pulmonic Valve The pulmonic valve is not well visualized. There is no pulmonic valvular stenosis. Mild pulmonic valv ular regurgitation. Great Vessels The aortic root is normal size. Pericardium/Pleura There is no pericardial effusion. Interpretation Summary The left ventricle is grossly normal size. There is moderate tricuspid regurgitation. Right ventricular systolic pressure is normal. There is moderate aortic valve thickening. There is moderate aortic sclerosis.; Mild pulmonic valvular regurgitation. There is a pacemaker lead in the right ventricle. Moderate to severe valvular aortic stenosis. There is moderate mitral regurgitation. Left ventricular systolic function is mild to moderately reduced. There is mild to moderate global hypokinesis of the left ventricle. Regional wall motion abnormalities cannot be excluded due to limited visualization. The study was technically difficult with many images being suboptimal in quality. MD Paul Gerardo 08/21/2018 03:23 PM
[2018-08-21] MEDS: MELATONIN 5 MG TABLETS PO PRN (20:41)
[2018-08-21] MEDS ORDERED: ATORVASTATIN CA 10 MG TABLET (FP) PO SCH (22:00)
[2018-08-22 05:38] VITALS: PULSE 62
[2018-08-22] MEDS: INSULIN SLIDING SCALE (NOVOLOG) 1 VIAL SQ SCH ×2 (06:02→11:16)
[2018-08-22] MEDS: hydrALAZINE HCL 10 MG TABLET PO SCH (09:17)
[2018-08-22] MEDS: CARVEDILOL 25 MG TABLET (FP) PO SCH (09:17)
[2018-08-22] MEDS: EZETIMIBE 10 MG TABLET (FP) PO SCH (09:17)
[2018-08-22] MEDS: levETIRAcetam 500 MG TABLET (FP) PO SCH (09:18)
[2018-08-22] MEDS: MAGNESIUM OXIDE 400 MG TABLET (FP) PO SCH (09:18)
[2018-08-22] MEDS: APIXABAN 2.5 MG TABLET PO SCH (09:18)
[2018-08-22 10:46] VITALS: TEMP 98.3
--- NOTE | 2018-08-22 11:45 | DS ---
Physical Examination Vital Signs: Vital Signs Temperature 98.3 F 08/22/18 10:00 Pulse Rate 62 08/22/18 10:00 Respiratory Rate 18 08/22/18 10:00 Blood Pressure 121/71 08/22/18 10:00 O2 Sat by Pulse Oximetry (%) 98 08/22/18 09:00 Constitutional: Yes: Calm Neck: Yes: Trachea Midline Cardiovascular: Yes: Regular Rate and Rhythm, S1, S2 Respiratory: Yes: CTA Bilaterally Gastrointestinal: Yes: Normal Bowel Sounds, Soft Edema: No Neurological: Yes: Alert, Oriented Labs: CBC, BMP 08/21/18 05:30 Discharge Summary Reason For Visit: WEAKNESS,HX OF STROKE Current Active Problems History of TIA (transient ischemic attack) (Acute) Seizures (Acute) Weakness (Acute) Other Procedures: ct scan no infarct. carotid dopler normal. cannot get MRI bc defibrillator Hospital Course: PCP: Kei Marlow - Admission Chief Complaint: R sided numbness and weakness History of Present Illness: Patient is a 72 y/o female with past medical history of DM, Afib, Seizures, HTN , TIA. Patient presented to PMD office earlier today with complaints of R sided numbness and weakness for 1 month with SOB on exertion. Patient states weakness exacerbated with walking and can only walk 2 blocks before experiencing SOB. Patient is out of 6hr window for TPA treatment. Patient denies chest pain, dizziness. Denies nausea, vomiting, abdominal pain. admitted to telemetry ct scan and carotid doppler negative cannot get MRI seen by cardiology and neurology hesitaint about taking aspirn on eliquis and statin got EMG study home with PT and VNS - Instructions Disposition: HOME - Home Medications Comprehensive Discharge Medication List: Ambulatory Orders Carvedilol [Coreg -] 25 mg PO BID tablet 11/21/16 Apixaban [Eliquis -] 2.5 mg PO BID 08/20/18 Atorvastatin Calcium [Lipitor] 10 mg PO DAILY 08/20/18 Ezetimibe/Simvastatin [Ezetimibe-Simvastatin 10-10 mg] 1 each PO DAILY 08/20/18 Hydralazine HCl 10 mg PO BID 08/20/18 Magnesium Oxide [Magnesium] 400 mg PO BID 08/20/18 Sacubitril/Valsartan [Entresto 24 mg-26 mg Tablet] 1 tab PO DAILY 08/20/18 levETIRAcetam [Keppra -] 1,000 mg PO BID 08/20/18
[2018-08-22 11:58] LABS: ALBUMIN 3.7 g/dl (3.4-5.0); BILIRUBIN,TOTAL 0.6 mg/dL (0.2-1); CALCIUM 9.3 mg/dL (8.5-10.1); CREATININE 1.4 mg/dL (0.55-1.3); MAGNESIUM 2.1 mg/dL (1.8-2.4); POTASSIUM 5.2 mmol/L (3.5-5.1); TOT PROT 7.8 g/dl (6.4-8.2)
[2018-08-22] MEDS ORDERED: HEPARIN NA (PORCINE) 5,000 UNITS/ML 1ML VIAL IVPUSH PRN ×2 (12:20→22:00)
--- NOTE | 2018-08-22 12:27 | PN ---
Progress Note (short form) - Note Progress Note: echo note dfor mod to severe aortic stenosis and global wall hypoinesis plan per cardiology to transfer for cardiac cath tmw stop eliquis now start iv heparin no bolus at 10:00pm tonight cancel discharge order
[2018-08-22] MEDS ORDERED: HEPARIN INFUSION - 25,000 UNITS/500 ML INFUS.BAG IV SCH ×2 (12:30→22:00)
--- NOTE | 2018-08-22 12:53 | PN ---
Progress Note, Physician Chief Complaint: Pt A&Ox3; still with neck stiffness. No chest pain or dyspnea. No leg swellin. History of Present Illness: Ms. Mcleod is a 72 year old black woman, with a PMHx of CAD (2VD, including 70 % proximal LAD and 40% mid RCA stenoses on 07/2014 [facility] coronary angiogram, followed by BM stent of the LAD 10/2014). systolic CHF (s/p [employer] ICD 10/2014 at [facility])), aortic stenosis (most recently moderate), ? DM, Afib, HTN, stroke, seizure, who presents to the emergency department with one month of increasing shortness of breath on exertion and right sided pain and tingling sent to the ED from Dr. Rubio office today. She was noted to have elevated blood pressure in the ER. - Current Medication List Current Medications: Active Medications Atorvastatin Calcium (Lipitor -) 10 mg PO HS [facility] Last Admin: 08/21/18 21:06 Dose: 10 mg Carvedilol (Coreg -) 25 mg PO BID [facility] Last Admin: 08/22/18 09:17 Dose: 25 mg Ezetimibe (Zetia -) 10 mg PO DAILY [facility] Last Admin: 08/22/18 09:17 Dose: 10 mg Hydralazine HCl (Apresoline -) 10 mg PO BID [facility] Last Admin: 08/22/18 09:17 Dose: 10 mg Insulin Aspart (Novolog Vial Sliding Scale -) 1 vial SQ [facility]; Protocol Last Admin: 08/22/18 11:16 Dose: Not Given Levetiracetam (Keppra -) 1,000 mg PO BID [facility] Last Admin: 08/22/18 09:18 Dose: 1,000 mg Magnesium Oxide (Mag-Ox -) 400 mg PO BID [facility] Last Admin: 08/22/18 09:18 Dose: 400 mg Melatonin (Melatonin) 10 mg PO HS PRN PRN Reason: INSOMNIA Last Admin: 08/21/18 20:41 Dose: 10 mg Sacubitril/Valsartan (Entresto 24 Mg-26 Mg Tablet) 1 tab PO DAILY [facility] - Objective Vital Signs: Vital Signs Temperature 98.3 F 08/22/18 10:00 Pulse Rate 62 08/22/18 10:00 Respiratory Rate 18 08/22/18 10:00 Blood Pressure 121/71 08/22/18 10:00 O2 Sat by Pulse Oximetry (%) 98 08/22/18 09:00 Constitutional: Yes: Calm Eyes: Yes: WNL HENT: Yes: WNL Neck: Yes: Decreased ROM Cardiovascular: Yes: Bradycardia, S1, S2 Respiratory: Yes: WNL Gastrointestinal: Yes: Soft ...Rectal Exam: Yes: Deferred Genitourinary: No: Anuria Musculoskeletal: Yes: Muscle Weakness Extremities: Yes: WNL Edema: No Peripheral Pulses WNL: Yes Integumentary: Yes: WNL Neurological: Yes: Alert, Oriented Psychiatric: Yes: WNL Labs: CBC, BMP 08/21/18 05:30 08/22/18 11:00 INR, PTT INR 1.33 (0.83-1.09) H 08/20/18 14:00 Abnormal Lab Results 08/22/18 11:00 Potassium 5.2 H Anion Gap 2 L BUN 22 H Creatinine 1.4 H Random Glucose 117 H - ....Imaging Other: Image Reviewed (telemetry: NSR; no arrhythmias) Problem List - Problems (1) History of TIA (transient ischemic attack) Code(s): Z86.73 - PRSNL HX OF TIA (TIA), AND CEREB INFRC W/O RESID DEFICITS (2) Weakness Assessment/Plan: right-sided limited motion of neck extending into right hand; off and on for weeks no acute pathology per studies. Physical rehabilitation. Code(s): R53.1 - WEAKNESS (3) Acute on chronic systolic and diastolic heart failure, NYHA class 4 Assessment/Plan: Continue Entresto, carvedilol, hydralazine. Add isordil. (If BUN/Cr and K+ remain WNL, may later add spironolactone, though past history may have shown periods of hyperkalemia; close f/u of BUN/Cr and electrolytes will be coffey). TNI < 0.02 x 2. ECHO: LVEF 40%; modeately severe . F/u BUN/Cr, electrolytes, daily weight, Is and Os. Code(s): I50.43 - ACUTE ON CHRONIC COMBINED SYSTOLIC AND DIASTOLIC HRT FAIL (4) Atrial fibrillation and flutter Assessment/Plan: On carvedilol for hr control. On apixaban for anticoagulation. Code(s): I48.91 - UNSPECIFIED ATRIAL FIBRILLATION; I48.92 - UNSPECIFIED ATRIAL FLUTTER (5) CVA (cerebral vascular accident) Code(s): I63.9 - CEREBRAL INFARCTION, UNSPECIFIED (6) Coronary artery disease Assessment/Plan: F?u recent cardiac workup. Pt will have coronary angiogram next week as outpatient (CAD; progressive dyspnea over the past 2 years; reduced LVEF with aortic stenosis now noted as moderately severe; s/p BM stent of proximal LAD 10/2014). She was offered coroanry angioram now, but defers. She has also taken apixaban today. Code(s): I25.10 - ATHSCL HEART DISEASE OF [place] CORONARY ARTERY W/O ANG PCTRS Qualifiers: Coronary Disease-Associated Artery/Lesion type: [place] artery [place] vs. transplanted heart: [place] heart Associated angina: without angina Qualified Code(s): I25.10 - Atherosclerotic heart disease of [place] coronary artery without angina pectoris (7) Gait difficulty Code(s): R26.9 - UNSPECIFIED ABNORMALITIES OF GAIT AND MOBILITY (8) Hyperlipidemia Code(s): E78.5 - HYPERLIPIDEMIA, UNSPECIFIED (9) ICD (implantable cardioverter-defibrillator) in place Assessment/Plan: for interrogation next week Code(s): Z95.810 - PRESENCE OF AUTOMATIC (IMPLANTABLE) CARDIAC DEFIBRILLATOR (10) Mitral regurgitation and aortic stenosis Code(s): I08.0 - RHEUMATIC DISORDERS OF BOTH MITRAL AND AORTIC VALVES (11) Shortness of breath Code(s): R06.02 - SHORTNESS OF BREATH (12) Diabetes mellitus Code(s): E11.9 - TYPE 2 DIABETES MELLITUS WITHOUT COMPLICATIONS Qualifiers: Diabetes mellitus type: type 2 Diabetes mellitus complication status: with other specified complication (13) Hypertension Code(s): I10 - ESSENTIAL (PRIMARY) HYPERTENSION Qualifiers: Hypertension type: essential hypertension Qualified Code(s): I10 - Essential (primary) hypertension (14) Seizures Code(s): R56.9 - UNSPECIFIED CONVULSIONS (15) Aortic stenosis Assessment/Plan: Likely progression of disease: ECHO notes moderately severe , with mild- moderately reduced LVEF. Pt used to work out 5 days a week at a gym, and would walk on the treadmill for 20-30 minutes, but for the past two years has become more and more dyspneic on walking (now, walking even a block results in dyspnea and tightening of the calves). Planned for coronary angiogram, LE evaluation next week. Code(s): I35.0 - NONRHEUMATIC AORTIC (VALVE) STENOSIS
[2018-08-22 13:25] VITALS: BP 145/75
[2018-08-22] MEDS ORDERED: SACUBITRIL/VALSARTAN 24 MG-26 MG TABLET PO ONE (14:00)
[2018-08-22] MEDS ORDERED: PT OWN MED DRAWER 7, Y5N ONE (14:50)
== END 2018-08-22 15:11 | disposition home health service (06) | DRG 307 ==
LOC: JER 13:01 → JERBED 17:33 → J4S 21:54
PROVIDERS: ADMIT Family Medicine; ATTEND Family Medicine
DX: I35.0 Nonrheumatic aortic (valve) stenosis (principal); I50.32 Chronic diastolic (congestive) heart failure; G81.91 Hemiplegia, unspecified affecting right dominant side; I48.92 Unspecified atrial flutter; R53.1 Weakness; I48.91 Unspecified atrial fibrillation; E78.00 Pure hypercholesterolemia, unspecified; I25.10 Atherosclerotic heart disease of native coronary artery without angina pectoris; E78.5 Hyperlipidemia, unspecified; I34.0 Nonrheumatic mitral (valve) insufficiency; K57.90 Diverticulosis of intestine, part unspecified, without perforation or abscess without bleeding; K64.8 Other hemorrhoids; F41.9 Anxiety disorder, unspecified; G40.909 Epilepsy, unspecified, not intractable, without status epilepticus; I48.0 Paroxysmal atrial fibrillation; R26.9 Unspecified abnormalities of gait and mobility; E11.9 Type 2 diabetes mellitus without complications; M47.892 Other spondylosis, cervical region; G56.01 Carpal tunnel syndrome, right upper limb; E66.9 Obesity, unspecified; Z68.28 Body mass index [BMI] 28.0-28.9, adult; G62.9 Polyneuropathy, unspecified; I11.0 Hypertensive heart disease with heart failure; Z95.810 Presence of automatic (implantable) cardiac defibrillator
CPT/HCPCS: 36415; 70450-TC; 71045-TC-FY; 72125-TC; 80053; 80061; 81003; 82550; 82553; 82962; 83036; 83721; 83735; 84100; 84436; 84443; 84484; 85025; 85610; 85730; 87086; 93005; 93010; 93306-TC; 93880-TC; 97116-GP; 97161-GP; 99285-25

== ENCOUNTER 2020-12-13 11:49 | Inpatient (IN) | payer OTHER ==
[2020-12-13 12:22] VITALS: BMI 26.9
[2020-12-13] MEDS ORDERED: LABETALOL HCL 5 MG/1 ML (100MG/20 ML VIAL) IVPUSH ONE (12:45)
[2020-12-13] MEDS ORDERED: METOPROLOL TARTRATE 5 MG/5 ML VIAL IVPUSH ONE ×4 (13:06→21:52)
[2020-12-13] MEDS ORDERED: METOPROLOL TARTRATE 5 MG/5 ML VIAL ONE ×4 (13:54→22:02)
[2020-12-13 14:17] LABS: BASO % 0.6 % (0-2.0); EOS % 0.3 % (0-4.5); HEMATOCRIT 40.5 % (32.4-45.2); HEMOGLOBIN 13.5 GM/dL (10.7-15.3); LYMPH % 24.8 % (8-40); MCH 30.2 pg (25.7-33.7); MCHC 33.4 g/dl (32.0-36.0); MEAN CELL VOLUME 90.5 fl (80-96); MONO % 11.2 % (3.8-10.2); NEUT % 63.1 % (42.8-82.8); PLATELET COUNT 185 10^3/uL (134-434); RBC 4.47 M/mm3 (3.60-5.2); RDW 14.7 % (11.6-15.6); WHITE BLOOD COUNT 4.5 K/mm3 (4.0-10.0)
[2020-12-13 14:25] LABS: INR 1.89 (0.83-1.09); PROTHROMBIN TIME (PATIENT) 22.4 SEC (9.7-13.0)
[2020-12-13 14:28] LABS: ACTIVATED PTT 33.2 SECONDS (25.2-36.5)
[2020-12-13 14:40] LABS: CHLORIDE 109 mmol/L (98-107); SODIUM 141 mmol/L (136-145)
[2020-12-13 14:44] LABS: ANION GAP 9 MMOL/L (8-16); BLOOD UREA NITROGEN 14.8 mg/dL (7-18); CALCIUM 9.3 mg/dL (8.5-10.1); CO2 23 mmol/L (21-32); GLUCOSE,RANDOM 129 mg/dL (74-106)
[2020-12-13 14:47] LABS: CREATININE 1.6 mg/dL (0.55-1.3); SGOT/AST 15 U/L (15-37); SGPT/ALT 12 U/L (13-61)
[2020-12-13 14:49] LABS: BILIRUBIN,TOTAL 0.9 mg/dL (0.2-1)
[2020-12-13 14:50] LABS: ALK PHOS 73 U/L (45-117)
[2020-12-13] MEDS ORDERED: FUROSEMIDE 40 MG/4 ML INJECTABLE VIAL IVPUSH ONE (14:58)
[2020-12-13] MEDS ORDERED: FUROSEMIDE 40 MG/4 ML INJECTABLE VIAL ONE ×2 (15:22→15:23)
[2020-12-13 16:34] LABS: EPI CELLS >36 /uL (0-25.1); HYALINE CASTS 33 /uL (0-3.1); PH,URINE 5.5 (5.0-8.0); URINE APPEARANCE CLOUDY; URINE BILIRUBIN 2+ (NEGATIVE); URINE COLOR ORANGE; URINE GLUCOSE (UA) NEGATIVE (NEGATIVE); URINE KETONE TRACE (NEGATIVE); URINE LEUK ESTERASE 1+ (NEGATIVE); URINE NITRITE POSITIVE (NEGATIVE); URINE PROTEIN 4+ (NEGATIVE); URINE RBC 16 /uL (0-23.9); URINE WBC 42 /uL (0-25.8)
[2020-12-13] MEDS ORDERED: CARVEDILOL 25 MG TABLET (FP) PO ONE (16:50)
[2020-12-13] MEDS ORDERED: CARVEDILOL 12.5 MG TABLET (FP) ONE ×2 (16:53→22:02)
[2020-12-13] MEDS ORDERED: PIPERACILLIN/TAZOB 3.375 GM 3.375 GM in DEXTROSE 5%-WATER - 50 ML IVPB ONE (16:57)
[2020-12-13] MEDS ORDERED: PIPERACILLIN/TAZOB 3.375 GM 3.375 GM/50 ML BAG IVPB ONE (18:09)
[2020-12-13 19:08] LABS: MAGNESIUM 1.6 mg/dL (1.8-2.4)
[2020-12-13 19:12] LABS: PHOSPHOROUS 2.6 mg/dL (2.5-4.9)
[2020-12-13] MEDS ORDERED: MAGNESIUM SULF 50% (8.12 MEQ/2 ML-1 GM VIAL) IVPB ONE (19:18)
[2020-12-13] MEDS ORDERED: MAGNESIUM 1GM/D5W - 1 GM/100 ML IVPB IVPB ONE (19:30)
[2020-12-13] MEDS ORDERED: hydrALAZINE HCL 10 MG TABLET PO SCH (22:00)
[2020-12-13] MEDS ORDERED: levETIRAcetam 500 MG TABLET (FP) PO ONE (22:02)
[2020-12-13] MEDS ORDERED: APIXABAN 2.5 MG TABLET ONE (22:02)
[2020-12-13] MEDS ORDERED: MAGNESIUM OXIDE 400 MG TABLET (FP) ONE (22:02)
[2020-12-13] MEDS ORDERED: ATORVASTATIN CA 20 MG TABLET (FP) ONE (22:02)
[2020-12-13] MEDS: levETIRAcetam 500 MG TABLET (FP) PO SCH (22:26)
[2020-12-13] MEDS: ATORVASTATIN CA 20 MG TABLET (FP) PO SCH (22:26)
[2020-12-13] MEDS: APIXABAN 5 MG TABLET PO SCH (22:26)
[2020-12-13] MEDS: CARVEDILOL 25 MG TABLET (FP) PO SCH (22:26)
[2020-12-13] MEDS: MAGNESIUM OXIDE 400 MG TABLET (FP) PO SCH (22:26)
[2020-12-14] MEDS ORDERED: FUROSEMIDE 40 MG/4 ML INJECTABLE VIAL ONE (06:23)
[2020-12-14 07:03] LABS: BASO % 1.7 % (0-2.0); EOS % 1.2 % (0-4.5); HEMATOCRIT 36.3 % (32.4-45.2); HEMOGLOBIN 12.2 GM/dL (10.7-15.3); LYMPH % 30.3 % (8-40); MCH 30.4 pg (25.7-33.7); MCHC 33.6 g/dl (32.0-36.0); MEAN CELL VOLUME 90.5 fl (80-96); MEAN PLT VOLUME 8.9 fl (7.5-11.1); NEUT % 51.8 % (42.8-82.8); PLATELET COUNT 154 10^3/uL (134-434); RBC 4.01 M/mm3 (3.60-5.2); RDW 14.8 % (11.6-15.6); WHITE BLOOD COUNT 3.6 K/mm3 (4.0-10.0)
[2020-12-14 07:18] LABS: CHLORIDE 109 mmol/L (98-107); SODIUM 141 mmol/L (136-145)
[2020-12-14 07:25] LABS: CALCIUM 8.6 mg/dL (8.5-10.1)
[2020-12-14 07:26] LABS: ALBUMIN 3.3 g/dl (3.4-5.0); ANION GAP 10 MMOL/L (8-16); BLOOD UREA NITROGEN 15.1 mg/dL (7-18); CO2 23 mmol/L (21-32); GLUCOSE,RANDOM 117 mg/dL (74-106); MAGNESIUM 1.7 mg/dL (1.8-2.4)
[2020-12-14 07:28] LABS: CHOLESTEROL 122 mg/dL (50-200); TRIGLYCERIDES 84 mg/dL (0-150)
[2020-12-14 07:29] LABS: CREATININE 1.6 mg/dL (0.55-1.3); SGOT/AST 9 U/L (15-37); SGPT/ALT 11 U/L (13-61)
[2020-12-14 07:30] LABS: ALK PHOS 59 U/L (45-117); BILIRUBIN,TOTAL 0.9 mg/dL (0.2-1); LDL CHOLESTEROL (ONLY SJRH) 69 mg/dL (5-100); TOT PROT 6.1 g/dl (6.4-8.2)
[2020-12-14 07:31] LABS: HDL CHOLESTEROL 40 mg/dL (40-60)
[2020-12-14] MEDS: FUROSEMIDE 40 MG/4 ML INJECTABLE VIAL IVPUSH SCH ×2 (09:02→16:43)
[2020-12-14] MEDS ORDERED: CARVEDILOL 12.5 MG TABLET (FP) ONE (11:44)
[2020-12-14] MEDS ORDERED: ONDANSETRON *ODT* 4 MG TABLET ONE (11:45)
[2020-12-14] MEDS ORDERED: ACETAMINOPHEN INJECTION 100 ML IVPB ONE (11:47)
[2020-12-14] MEDS ORDERED: PIPERACILLIN/TAZOB 2.25 GM 2.25 GM/50 ML BAG IVPB ONE (11:48)
[2020-12-14] MEDS: APIXABAN 5 MG TABLET PO SCH ×2 (12:44→21:54)
[2020-12-14] MEDS: CARVEDILOL 25 MG TABLET (FP) PO SCH ×2 (12:44→21:53)
[2020-12-14] MEDS: SACUBITRIL/VALSARTAN 24 MG-26 MG TABLET PO SCH ×2 (12:44→21:53)
[2020-12-14] MEDS ORDERED: MAGNESIUM OXIDE 400 MG TABLET (FP) ONE (12:51)
[2020-12-14] MEDS ORDERED: levETIRAcetam 500 MG TABLET (FP) PO ONE ×2 (12:51→12:52)
[2020-12-14] MEDS: MAGNESIUM OXIDE 400 MG TABLET (FP) PO SCH ×2 (12:57→21:54)
[2020-12-14] MEDS: levETIRAcetam 500 MG TABLET (FP) PO SCH ×2 (12:57→21:53)
[2020-12-14] MEDS ORDERED: MAGNESIUM 1GM/D5W - 1 GM/100 ML IVPB IVPB ONE (16:51)
[2020-12-14] MEDS ORDERED: POTASSIUM CHLORIDE TABS 20 MEQ TABLET.ER (FP) PO ONE (16:57)
[2020-12-14] MEDS: METOPROLOL TARTRATE 5 MG/5 ML VIAL IVPUSH PRN (20:39)
[2020-12-14] MEDS ORDERED: PT OWN MED DRAWER 7, Y5N ONE (21:34)
[2020-12-14] MEDS: ATORVASTATIN CA 20 MG TABLET (FP) PO SCH (21:54)
[2020-12-15] MEDS: FUROSEMIDE 40 MG/4 ML INJECTABLE VIAL IVPUSH SCH ×2 (05:41→13:09)
[2020-12-15] MEDS: METOPROLOL TARTRATE 5 MG/5 ML VIAL IVPUSH PRN (05:41)
[2020-12-15 08:38] LABS: HEMATOCRIT 39.2 % (32.4-45.2); HEMOGLOBIN 13.1 GM/dL (10.7-15.3); MCH 30.4 pg (25.7-33.7); MCHC 33.3 g/dl (32.0-36.0); MEAN CELL VOLUME 91.1 fl (80-96); MEAN PLT VOLUME 9.3 fl (7.5-11.1); PLATELET COUNT 185 10^3/uL (134-434); RDW 14.5 % (11.6-15.6); WHITE BLOOD COUNT 3.5 K/mm3 (4.0-10.0)
[2020-12-15 09:08] LABS: CALCIUM 9.3 mg/dL (8.5-10.1)
[2020-12-15 09:09] LABS: BLOOD UREA NITROGEN 14.4 mg/dL (7-18)
[2020-12-15 09:11] LABS: IRON SERUM 60 ug/dL (50-175); TOTAL IRON BINDING CAPACITY 236 ug/dL (250-450)
[2020-12-15 09:12] LABS: CREATININE 1.6 mg/dL (0.55-1.3)
[2020-12-15] MEDS: LACTOBACILLUS ACIDOPHILUS 1 TABLET PO SCH (10:57)
[2020-12-15] MEDS: SACUBITRIL/VALSARTAN 24 MG-26 MG TABLET PO SCH ×2 (10:57→21:39)
[2020-12-15] MEDS: MAGNESIUM OXIDE 400 MG TABLET (FP) PO SCH ×2 (10:57→21:40)
[2020-12-15] MEDS: levETIRAcetam 500 MG TABLET (FP) PO SCH ×2 (10:57→21:40)
[2020-12-15] MEDS: CARVEDILOL 25 MG TABLET (FP) PO SCH (10:57)
[2020-12-15] MEDS: APIXABAN 5 MG TABLET PO SCH ×2 (10:57→21:40)
[2020-12-15 17:19] LABS: EPI CELLS 5 /uL (0-25.1); HYALINE CASTS 5 /uL (0-3.1); URINE APPEARANCE CLEAR; URINE BACTERIA 1 /uL (0-1359); URINE BILIRUBIN NEGATIVE (NEGATIVE); URINE COLOR YELLOW; URINE GLUCOSE (UA) NEGATIVE (NEGATIVE); URINE KETONE NEGATIVE (NEGATIVE); URINE LEUK ESTERASE TRACE (NEGATIVE); URINE NITRITE NEGATIVE (NEGATIVE); URINE PROTEIN NEGATIVE (NEGATIVE); URINE RBC 8 /uL (0-23.9); URINE UROBILINOGEN 0.2 mg/dL (0.2-1.0); URINE WBC 8 /uL (0-25.8)
[2020-12-15] MEDS: ATORVASTATIN CA 20 MG TABLET (FP) PO SCH (21:40)
[2020-12-16] MEDS: FUROSEMIDE 40 MG/4 ML INJECTABLE VIAL IVPUSH SCH ×2 (06:02→14:06)
[2020-12-16 07:53] LABS: ALBUMIN 3.5 g/dl (3.4-5.0); BLOOD UREA NITROGEN 15.2 mg/dL (7-18); CALCIUM 9.3 mg/dL (8.5-10.1)
[2020-12-16 07:54] LABS: MAGNESIUM 1.8 mg/dL (1.8-2.4)
[2020-12-16 07:55] LABS: CREATININE 1.5 mg/dL (0.55-1.3)
[2020-12-16 07:57] LABS: BILIRUBIN,TOTAL 0.6 mg/dL (0.2-1)
[2020-12-16 07:59] LABS: TOT PROT 7.3 g/dl (6.4-8.2)
[2020-12-16] MEDS ORDERED: PT OWN MED DRAWER 7, Y5N ONE ×4 (08:50→21:29)
[2020-12-16] MEDS ORDERED: FAMOTIDINE 20 MG TABLET PO SCH (10:00)
[2020-12-16] MEDS: levETIRAcetam 500 MG TABLET (FP) PO SCH ×2 (10:42→21:33)
[2020-12-16] MEDS: SACUBITRIL/VALSARTAN 24 MG-26 MG TABLET PO SCH ×2 (10:43→21:32)
[2020-12-16] MEDS: APIXABAN 5 MG TABLET PO SCH ×2 (10:43→21:33)
[2020-12-16] MEDS: MAGNESIUM OXIDE 400 MG TABLET (FP) PO SCH ×2 (10:43→21:32)
[2020-12-16] MEDS: LACTOBACILLUS ACIDOPHILUS 1 TABLET PO SCH (10:43)
[2020-12-16] MEDS: LIPASE/PROTEASE/AMYLASE 36,000 UNIT CAPSULE PO SCH ×2 (12:31→17:51)
[2020-12-16] MEDS: SPIRONOLACTONE 25 MG TABLET PO SCH (14:06)
[2020-12-16] MEDS: RIFAXIMIN 550 MG TABLET (UD) PO SCH ×2 (14:06→21:32)
[2020-12-16] MEDS: ATORVASTATIN CA 20 MG TABLET (FP) PO SCH (21:33)
[2020-12-16] MEDS ORDERED: MELATONIN 5 MG TABLETS PO PRN (21:42)
[2020-12-17] MEDS ORDERED: PT OWN MED DRAWER 7, Y5N ONE ×3 (05:38→09:16)
[2020-12-17] MEDS: RIFAXIMIN 550 MG TABLET (UD) PO SCH ×2 (05:41→13:37)
[2020-12-17] MEDS: FUROSEMIDE 40 MG/4 ML INJECTABLE VIAL IVPUSH SCH (05:41)
[2020-12-17] MEDS: LIPASE/PROTEASE/AMYLASE 36,000 UNIT CAPSULE PO SCH ×2 (08:10→12:22)
[2020-12-17] MEDS: levETIRAcetam 500 MG TABLET (FP) PO SCH (09:22)
[2020-12-17] MEDS: MAGNESIUM OXIDE 400 MG TABLET (FP) PO SCH (09:22)
[2020-12-17] MEDS: APIXABAN 5 MG TABLET PO SCH (09:22)
[2020-12-17] MEDS: LACTOBACILLUS ACIDOPHILUS 1 TABLET PO SCH (09:22)
[2020-12-17] MEDS: SACUBITRIL/VALSARTAN 24 MG-26 MG TABLET PO SCH (09:22)
[2020-12-17] MEDS: SPIRONOLACTONE 25 MG TABLET PO SCH (09:22)
[2020-12-17] MEDS ORDERED: FUROSEMIDE 40 MG TABLET (FP) PO SCH (14:00)
[2020-12-17 15:39] VITALS: BP 91/60; PULSE 98; TEMP 97.8
== END 2020-12-17 18:12 | disposition home health service (06) | DRG 291 ==
LOC: JER 11:49 → JERBED 15:17 → J4W 12-14 15:13
PROVIDERS: ADMIT Family Medicine; ATTEND Family Medicine
DX: I13.0 Hypertensive heart and chronic kidney disease with heart failure and stage 1 through stage 4 chronic kidney disease, or unspecified chronic kidney disease (principal); I50.43 Acute on chronic combined systolic (congestive) and diastolic (congestive) heart failure; I69.351 Hemiplegia and hemiparesis following cerebral infarction affecting right dominant side; I25.10 Atherosclerotic heart disease of native coronary artery without angina pectoris; I08.0 Rheumatic disorders of both mitral and aortic valves; E11.65 Type 2 diabetes mellitus with hyperglycemia; E78.00 Pure hypercholesterolemia, unspecified; G40.909 Epilepsy, unspecified, not intractable, without status epilepticus; F03.90 Unspecified dementia, unspecified severity, without behavioral disturbance, psychotic disturbance, mood disturbance, and anxiety; I48.0 Paroxysmal atrial fibrillation; E11.22 Type 2 diabetes mellitus with diabetic chronic kidney disease; K64.9 Unspecified hemorrhoids; R26.9 Unspecified abnormalities of gait and mobility; K57.90 Diverticulosis of intestine, part unspecified, without perforation or abscess without bleeding; N18.9 Chronic kidney disease, unspecified; Z95.810 Presence of automatic (implantable) cardiac defibrillator; R63.0 Anorexia; Z68.26 Body mass index [BMI] 26.0-26.9, adult; Z95.5 Presence of coronary angioplasty implant and graft
CPT/HCPCS: 36415; 71045-TC-FY; 71046-TC-FY; 76775-TC; 80048; 80053; 80061; 81003; 82550; 82553; 82570; 82728; 83036; 83540; 83550; 83735; 83880; 84100; 84156; 84300; 84443; 84484; 85025; 85027; 85610; 85730; 87086; 93005; 93010; 93306-TC; 97116-GP; 97161-GP; 99285-25; C9803; U0003; U0005

== ENCOUNTER 2021-01-07 11:06 | Inpatient (IN) | payer OTHER ==
[2021-01-07] MEDS ORDERED: SODIUM CHLORIDE 0.9% 500 ML INFUS.BAG IV ONE ×2 (11:48→14:27)
[2021-01-07 11:55] LABS: BASO % 0.4 % (0-2.0); EOS % 0.1 % (0-4.5); HEMOGLOBIN 16.5 GM/dL (10.7-15.3); LYMPH % 21.9 % (8-40); MCHC 32.3 g/dl (32.0-36.0); MEAN CELL VOLUME 92.8 fl (80-96); MEAN PLT VOLUME 9.9 fl (7.5-11.1); MONO % 7.9 % (3.8-10.2); NEUT % 69.7 % (42.8-82.8); PLATELET COUNT 244 10^3/uL (134-434); RDW 15.5 % (11.6-15.6); WHITE BLOOD COUNT 4.4 K/mm3 (4.0-10.0)
[2021-01-07] MEDS ORDERED: METOPROLOL TARTRATE 5 MG/5 ML VIAL IVPUSH ONE (11:59)
[2021-01-07 12:04] LABS: INR 2.25 (0.83-1.09); PROTHROMBIN TIME (PATIENT) 27.9 SEC (9.7-13.0)
[2021-01-07 12:07] LABS: ACTIVATED PTT 35.8 SECONDS (25.2-36.5)
[2021-01-07 12:24] LABS: MAGNESIUM 3.1 mg/dL (1.8-2.4)
[2021-01-07] MEDS ORDERED: METOPROLOL TARTRATE 5 MG/5 ML VIAL ONE (12:26)
[2021-01-07 12:28] LABS: PHOSPHOROUS 7.2 mg/dL (2.5-4.9)
[2021-01-07 12:45] LABS: ANION GAP 17 MMOL/L (8-16); BILIRUBIN,TOTAL 1.9 mg/dL (0.2-1); BLOOD UREA NITROGEN 108.6 mg/dL (7-18); CALCIUM 9.5 mg/dL (8.5-10.1); CHLORIDE 97 mmol/L (98-107); CO2 12 mmol/L (21-32); CREATININE 5.2 mg/dL (0.55-1.3); GLUCOSE,RANDOM 198 mg/dL (74-106); SODIUM 126 mmol/L (136-145); TOT PROT 9.6 g/dl (6.4-8.2)
[2021-01-07 12:46] LABS: ALK PHOS 113 U/L (45-117); SGOT/AST 147 U/L (15-37); SGPT/ALT 56 U/L (13-61)
[2021-01-07 14:18] LABS: CHLORIDE 101 mmol/L (98-107); SODIUM 135 mmol/L (136-145)
[2021-01-07 14:20] LABS: ALBUMIN 3.8 g/dl (3.4-5.0); CALCIUM 10.1 mg/dL (8.5-10.1); CO2 14 mmol/L (21-32); GLUCOSE,RANDOM 199 mg/dL (74-106)
[2021-01-07 14:23] LABS: CREATININE 5.2 mg/dL (0.55-1.3); SGOT/AST 48 U/L (15-37); SGPT/ALT 43 U/L (13-61)
[2021-01-07 14:25] LABS: BILIRUBIN,TOTAL 1.8 mg/dL (0.2-1); TOT PROT 7.7 g/dl (6.4-8.2)
[2021-01-07 14:29] LABS: ALK PHOS 108 U/L (45-117)
[2021-01-07 14:50] LABS: ANION GAP 20 MMOL/L (8-16); BLOOD UREA NITROGEN 112.7 mg/dL (7-18)
[2021-01-07] MEDS ORDERED: SODIUM BICARBONATE 8.4% 50 MEQ/50 ML VIAL IVPB ONE (15:51)
[2021-01-07] MEDS ORDERED: SODIUM CHLORIDE 0.45% 1,000 ML IV SCH ×2 (16:15→21:30)
[2021-01-07] MEDS ORDERED: SODIUM BICARBONATE 8.4% 50 MEQ/50 ML VIAL ONE (18:51)
[2021-01-07] MEDS ORDERED: SODIUM BICARBONATE 8.4% - 50 ML ONE (18:54)
[2021-01-07 18:55] LABS: URINE APPEARANCE Clear; URINE BILIRUBIN 1+ (NEGATIVE); URINE COLOR Yellow; URINE GLUCOSE (UA) Negative (NEGATIVE); URINE KETONE Negative (NEGATIVE); URINE LEUK ESTERASE Negative (NEGATIVE); URINE NITRITE Negative (NEGATIVE); URINE PROTEIN Negative (NEGATIVE); URINE UROBILINOGEN 0.2 mg/dL (0.2-1.0)
[2021-01-07 20:06] LABS: CHLORIDE 101 mmol/L (98-107); SODIUM 137 mmol/L (136-145)
[2021-01-07 20:08] LABS: ANION GAP 20 MMOL/L (8-16); CALCIUM 9.6 mg/dL (8.5-10.1); CO2 16 mmol/L (21-32)
[2021-01-07 20:09] LABS: GLUCOSE,RANDOM 151 mg/dL (74-106)
[2021-01-07 20:12] LABS: CREATININE 5.3 mg/dL (0.55-1.3)
[2021-01-07 20:13] LABS: BLOOD UREA NITROGEN 115.5 mg/dL (7-18)
[2021-01-07] MEDS ORDERED: SODIUM CHLORIDE 1,000 ML IV SCH (21:15)
[2021-01-07] MEDS ORDERED: METOPROLOL TARTRATE 5 MG/5 ML VIAL IVPUSH PRN (21:27)
[2021-01-07] MEDS ORDERED: APIXABAN 2.5 MG TABLET ONE (21:52)
[2021-01-07] MEDS: APIXABAN 2.5 MG TABLET PO SCH (21:59)
[2021-01-07] MEDS ORDERED: CARVEDILOL 25 MG TABLET (FP) PO SCH (22:00)
[2021-01-07] MEDS ORDERED: CHLORHEXIDINE GLUCONATE 4% CLEANSER FOR DECOLONIZATION TP SCH (22:00)
[2021-01-07] MEDS: MUPIROCIN 2% TOPICAL OINTMENT FOR DECOLONIZATION NS SCH (23:50)
[2021-01-08] MEDS ORDERED: METOPROLOL TARTRATE 25 MG TABLET (FP) PO ONE (00:31)
[2021-01-08 01:21] VITALS: BMI 26.1
[2021-01-08] MEDS ORDERED: ACETAMINOPHEN 1000 MG/100 ML VIAL (NON FORMULARY) IVPB ONE (01:28)
[2021-01-08] MEDS ORDERED: METOPROLOL TARTRATE 5 MG/5 ML VIAL ONE (08:05)
[2021-01-08 09:18] LABS: BASO % 0.2 % (0-2.0); HEMATOCRIT 49.9 % (32.4-45.2); HEMOGLOBIN 15.6 GM/dL (10.7-15.3); LYMPH % 17.5 % (8-40); MCH 30.3 pg (25.7-33.7); MCHC 31.2 g/dl (32.0-36.0); MEAN PLT VOLUME 9.5 fl (7.5-11.1); MONO % 11.3 % (3.8-10.2); PLATELET COUNT 192 10^3/uL (134-434); RBC 5.14 M/mm3 (3.60-5.2); RDW 16.2 % (11.6-15.6); WHITE BLOOD COUNT 5.4 K/mm3 (4.0-10.0)
[2021-01-08] MEDS: MUPIROCIN 2% TOPICAL OINTMENT FOR DECOLONIZATION NS SCH (09:27)
[2021-01-08] MEDS: APIXABAN 2.5 MG TABLET PO SCH (09:27)
[2021-01-08 10:00] LABS: ALBUMIN 3.4 g/dl (3.4-5.0); ALK PHOS 100 U/L (45-117); ANION GAP 28 MMOL/L (8-16); BILIRUBIN,TOTAL 2.2 mg/dL (0.2-1); CALCIUM 9.4 mg/dL (8.5-10.1); CHLORIDE 103 mmol/L (98-107); CO2 8 mmol/L (21-32); CREATININE 5.8 mg/dL (0.55-1.3); GLUCOSE,RANDOM 85 mg/dL (74-106); PHOSPHOROUS 8.8 mg/dL (2.5-4.9); SGOT/AST 68 U/L (15-37); SGPT/ALT 51 U/L (13-61); SODIUM 138 mmol/L (136-145); TOT PROT 7.1 g/dl (6.4-8.2)
[2021-01-08] MEDS ORDERED: PANTOPRAZOLE SODIUM 40 MG VIAL IVPUSH SCH (10:00)
[2021-01-08] MEDS ORDERED: SODIUM ZIRCONIUM CYCLOSILICATE (LOKELMA) 5 GM PACKET PO SCH (10:00)
[2021-01-08] MEDS ORDERED: SODIUM CHLORIDE 250 ML IV PRN (11:41)
[2021-01-08] MEDS ORDERED: CEFTRIAXONE 1 GM in DEXTROSE 5%-WATER - 50 ML IVPB SCH (13:15)
[2021-01-08] MEDS ORDERED: TRIPLE LUMEN FLUSH 4 ML ML IVPUSH SCH (13:30)
[2021-01-08 13:50] LABS: VENOUS BASE EXCESS -15.9 mmol/L (-2-2); VENOUS O2 SATURATION 62.8 % (70-80)
[2021-01-08 13:54] LABS: VENOUS PH 7.156 (7.310-7.410)
[2021-01-08] MEDS ORDERED: AMIODARONE IN DEXTROSE,ISO-OSM 360 MG/200 ML BAG IVPB ONE ×2 (14:08→14:24)
[2021-01-08] MEDS ORDERED: AMIODARONE IN DEXTROSE,ISO-OSM 150 MG/100 ML BAG IVPB ONE (14:15)
[2021-01-08] MEDS: ALBUMIN HUMAN 25% 12.5 GM/50 ML VIAL IVPB SCH ×3 (14:15→15:15)
[2021-01-08 14:16] LABS: LACTIC ACID 10.1 mmol/L (0.4-2.0)
[2021-01-08] MEDS ORDERED: cefTRIAXone SODIUM 1 GM VIAL ONE (14:33)
[2021-01-08] MEDS ORDERED: DEXTROSE 5%-WATER - 50 ML IVPB ONE (14:34)
[2021-01-08] MEDS ORDERED: VASOPRESSIN 40 UNITS/100 ML BAG IV SCH (15:15)
[2021-01-08] MEDS ORDERED: KETAMINE HCL 200 MG/20 ML VIAL IVPUSH ONE (15:45)
[2021-01-08] MEDS ORDERED: ROCURONIUM BROMIDE 100 MG/10 ML VIAL IV ONE (15:46)
[2021-01-08] MEDS ORDERED: NOREPINEPHRINE BITARTRATE 4 MG/4 ML ML IV ONE (16:04)
[2021-01-08] MEDS ORDERED: ROCURONIUM BROMIDE 100 MG/10 ML VIAL ONE (16:12)
[2021-01-08] MEDS ORDERED: NOREPINEPHRINE NS PREMIX 16,000 MCG/500 ML BAG IVPB SCH (17:30)
[2021-01-08 17:44] VITALS: TEMP 96
[2021-01-08] MEDS ORDERED: SODIUM BICARBONATE 8.4% 50 MEQ/50 ML VIAL IVPUSH ONE (18:45)
[2021-01-08 19:19] VITALS: BP 71/52; PULSE 95
[2021-01-08] MEDS ORDERED: morphine SULFATE 4 MG/ML VIAL IVPUSH ONE (19:24)
[2021-01-08] MEDS ORDERED: AMIODARONE IN DEXTROSE,ISO-OSM 360 MG/200 ML BAG IVPB SCH (20:23)
== END 2021-01-08 20:02 | disposition expired | DRG 682 ==
LOC: JER 11:06 → JERBED 13:32 → JICU 21:26
PROVIDERS: ADMIT Internal Medicine; ATTEND Internal Medicine
PROC: 05HM33Z Insertion of Infusion Device into Right Internal Jugular Vein, Percutaneous Approach (ICD-10-PCS; principal; 2021-01-08)
PROC: B543ZZA Ultrasonography of Right Jugular Veins, Guidance (ICD-10-PCS; 2021-01-08)
PROC: 0CHY7BZ Insertion of Airway into Mouth and Throat, Via Natural or Artificial Opening (ICD-10-PCS; 2021-01-08)
PROC: 5A1935Z Respiratory Ventilation, Less than 24 Consecutive Hours (ICD-10-PCS; 2021-01-08)
DX: N17.9 Acute kidney failure, unspecified (principal); J96.90 Respiratory failure, unspecified, unspecified whether with hypoxia or hypercapnia; I48.92 Unspecified atrial flutter; E87.2 Acidosis; I13.0 Hypertensive heart and chronic kidney disease with heart failure and stage 1 through stage 4 chronic kidney disease, or unspecified chronic kidney disease; I50.22 Chronic systolic (congestive) heart failure; N18.9 Chronic kidney disease, unspecified; E11.22 Type 2 diabetes mellitus with diabetic chronic kidney disease; R00.0 Tachycardia, unspecified; I48.91 Unspecified atrial fibrillation; I25.10 Atherosclerotic heart disease of native coronary artery without angina pectoris; E78.00 Pure hypercholesterolemia, unspecified; I08.0 Rheumatic disorders of both mitral and aortic valves; K57.90 Diverticulosis of intestine, part unspecified, without perforation or abscess without bleeding; K64.9 Unspecified hemorrhoids; G40.909 Epilepsy, unspecified, not intractable, without status epilepticus; E87.5 Hyperkalemia; I46.9 Cardiac arrest, cause unspecified; Z95.810 Presence of automatic (implantable) cardiac defibrillator; Z86.73 Personal history of transient ischemic attack (TIA), and cerebral infarction without residual deficits
CPT/HCPCS: 31500; 36415; 71045-TC-FY; 71046-TC-FY; 76775-TC; 80048; 80053; 81003; 82436; 82550; 82570; 82803; 82962; 83605; 83735; 84100; 84133; 84300; 84443; 84484; 85025; 85610; 85730; 86803; 87086; 87186; 87340; 87804; 93005; 93010; 94002; 99291; C9803; J0131; J0282; J1250; J3490; P9047; U0003; U0005